=== PATIENT | female | born 1970 | race American Indian/Alaskan Native ===

== ENCOUNTER 2024-02-26 09:46 | Outpatient (AMB) | payer OTHER, SELFPAY ==
--- NOTE | 2024-02-26 09:47 | MHC.PC.OV ---
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/Herniated Disk/Arthritis Intake Note: New patient visit [place] Operator Required: No Allergies iron Allergy (Severe, Verified 02/26/24 09:55) difficutly breathing prednisolone Allergy (Severe, Verified 02/26/24 09:55) difficulty breathing iodine Allergy (Mild, Verified 02/26/24 09:55) Hives meperidine [Demerol] Allergy (Mild, Verified 02/26/24 09:55) Difficulty Breathing Cortisone Allergy (Severe, Uncoded 02/26/24 09:55) Hives prednisolone-propyl Allergy (Unknown, Uncoded 02/26/24 09:55) difficutly breathing Medication List - Last Reconciled 02/26/24 by Zuleyka Givens MD albuterol sulfate mg inhalation Q4H PRN albuterol sulfate 90 mcg/actuation 2 puffs inhalation Q6H PRN beclomethasone dipropionate 80 mcg/actuation (Qvar RediHaler) 1 inh inhalation BID buspirone 10 mg PO TID fluticasone propion-salmeterol 250-50 mcg/dose (Advair Diskus) 1 ea inhalation BID hydroxyzine HCl 50 mg PO BEDTIME ketotifen fumarate 0.025%(0.035%) 1 drp ophthalmic (eye) BID PRN levothyroxine 100 mcg PO DAILY loratadine 10 mg PO DAILY melatonin 10 mg PO BEDTIME PRN mirtazapine 30 mg PO BEDTIME montelukast 10 mg PO DAILY morphine ER 30 mg PO Q12H naloxone 4 mg/actuation 1 spray intranasal DAILY quetiapine 50 mg PO BEDTIME Tobacco use date assessed: 02/26/24 Dental Screening Dental Screen Date: 02/26/24 Did you have a dental visit in the last 12 months?: Yes Did you have a dental problem in the last 6 months where you did not have access to dental care?: No Was dental information given to patient?: Patient has dentist HPI HPI Comments History of Present Illness Details The patient is a 53 year old female with a past medical history of chronic back pain, neck pain, insomnia, asthma presenting to reestablish care Chronic pain: On morphine ER 30mg twice daily. MRI neck with cervical DDD-08/2023 diffuse disc desiccation, ostophytes, disc space narrowing. At C5-C6 ventral subarachnoid space effaced without cord compression. Has been seen previously at [facility]. Does not tolerate steroid injections (allergy). Had neurology referral but ?pending for consideration of botox injections. Neuropsych: Depression, insomnia. On mirtazapine, hydroxyzine, buspar, seroquel. Resp: Asthma. Allergy. Follows with Dr Chester. On albuterol prn, alternates breo/advair. On singulair, loratidine. Sinus congestion. Does not have nasal spray. Takes intermittently. 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 COUNTS INCLUDE 234 BEDS AT THE [facility] Social History Housing: House Patient Tobacco Use Status: Never used Tobacco e-Cigarette/Vaping Use: Never Used Second Hand Smoke Exposure: No service: No Current occupational status: disabled Cognitive needs: No Hearing needs: No Vision needs: No Questionnaire PHQ-9 Over the last 2 weeks, how often have you been bothered by any of the following problems? 1. Little interest or pleasure in doing things: nearly every day 2. Feeling down, depressed, or hopeless: nearly every day 3. Trouble falling or staying asleep, or sleeping too much: nearly every day 4. Feeling tired or having little energy: nearly every day 5. Poor appetite or overeating: nearly every day 6. Feeling bad about yourself - or that you are a failure or have let yourself or your family down: nearly every day 7. Trouble concentrating on things, such as reading the newspaper or watching television: nearly every day 8. Moving or speaking so slowly that other people could have noticed. Or the opposite - being so fidgety or restless that you have been moving around a lot more than usual: more than half the days 9. Thoughts that you would be better off or of hurting yourself in some way: several days Total score: 24 Depression Screening Interpretation: Positive Depression Screening Follow-up: Community Mental Health Worker F/U Depression Screening Done: Yes 65576 - PHQ-9 Billing: Yes Source: Developed by Drs. Atilio Owens, Shirley García, Jean Carlos Luz and colleagues, with an educational denise from [employer]. Thrive Questionnaire Date Thrive assessed: 02/26/24 I am a: Patient What is your living situation today?: I have a steady place to live Within the past 12 months, did the food you bought not last and you didn't have the money to get more?: Never true Within the past 12 months, did you worry whether your food would run out before you got money to buy more?: Never true Do you have trouble paying for medicines?: No Do you have trouble getting transportation to medical appointments?: Yes Do you have trouble paying your heating and electricity bill?: No Do you have trouble taking care of your child, family member or friend?: No Do you have trouble with day-to-day activities such as bathing, preparing meals, shopping, managing finances, etc.?: No Are you currently unemployed and looking for a job?: No Are you interested in more education?: No Please select the resources that you would like help with: None Currently or been in a relationship where the following occur: no concerns reported THRIVE Score: 1 AUDIT C Alcohol Use Questionnaire (AUDIT-C) 1. How often do you have a drink containing alcohol?: Never 3. How often do you have six or more drinks on one occasion?: Never Total Score: 0 VERONIQUE-7 AMB Questionnaire VERONIQUE-7 Date VERONIQUE - 7 assessed: 02/26/24 Feeling nervous, anxious, or on edge: 3 = Nearly every day Not being able to stop or control worryin = Nearly every day Worrying too much about different things: 3 = Nearly every day Trouble relaxin = Nearly every day Being so restless that it is hard to sit still: 2 = More than half the days Becoming easily annoyed or irritable: 3 = Nearly every day Feeling afraid as if something awful might happen: 3 = Nearly every day Total VERONIQUE-7 score (0-4 normal; 5-9 mild; 10-14 moderate; 15-21 severe): 20 Source: Developed by Drs. Atilio Owens, Shirley García, Jean Carlos Luz and colleagues, with an educational denise from [employer]. VERONIQUE-7 Assessment Billing VERONIQUE-7 Assessment Tool: VERONIQUE-7 Assessment 14698 ACT Questionnaire In the past 4 weeks, how much of the time did your asthma keep you from getting as much done at work, school or at home?: Most of the time During the past 4 weeks, how often have you had shortness of breath?: More than once a day During the past 4 weeks, how often did your asthma symptoms wake you up at night or earlier than usual in the morning?: 2-3 nights a week During the past 4 weeks, how often have you had to use your rescue inhaler or nebulizer medication?: 2-3 times a week How would you rate your asthma control during the past 4 weeks?: Somewhat controlled ACT Interpretation: Positive Score: 11 Review of Systems Const Details: ROS CONSTITUTIONAL: Denies weight loss, fever and chills. HEENT: see HPI RESPIRATORY: Denies SOB and cough. CV: Denies palpitations and CP GI: Denies abdominal pain, nausea, vomiting and diarrhea. : Denies dysuria and urinary frequency. MSK: Denies new myalgia and joint pain. SKIN: Denies rash and pruritus. NEUROLOGICAL: Denies headache PSYCHIATRIC: Denies recent changes in mood. Physical exam (Primary Care) Tobacco/Smoking Status: Tobacco use Status Tobacco use date assessed 02/26/24 02/26/24 10:10 Patient Tobacco Use Status Never used Tobacco 02/26/24 10:10 e-Cigarette/Vaping Use Never Used 02/26/24 10:10 Depression Screening Interpretation: Positive Depression Screening Follow-up: Community Mental Health Worker F/U Currently or been in a relationship where the following occur: no concerns reported Const Other: PHYSICAL EXAM: GENERAL: Alert and oriented x 3. NAD EYES: EOMI. Anicteric. HENT: Moist mucous membranes. maxillary sinuses ttp b/l LUNGS: Clear to auscultation bilaterally. CARDIOVASCULAR: Regular rate and rhythm. ABDOMEN: Soft, non-tender +bs EXTREMITIES: No edema. Non-tender. SKIN: No rashes or lesions. Warm. NEUROLOGIC: No focal neurological deficits. CN II-XII grossly intact PSYCHIATRIC: Cooperative. Appropriate mood and affect Assessment and Plan Assessment & Plan (1) Degenerative cervical disc: Comment: continue ER morphine. neurology referral. cannot tolerate injections. Code(s): M50.30 - Other cervical disc degeneration, unspecified cervical region (2) Chronic pain syndrome: Code(s): G89.4 - Chronic pain syndrome (3) Asthma: Comment: well controlled on current regimen. Sinusitis-azithromycin x 5 days. start nasal spray intermittently. continue follow up with Allergy Code(s): J45.909 - Unspecified asthma, uncomplicated Qualifiers: Asthma complication type: uncomplicated Asthma persistence: persistent Asthma severity: moderate Qualified Code(s): J45.40 - Moderate persistent asthma, uncomplicated (4) Hypothyroid: Comment: due for TSH. Code(s): E03.9 - Hypothyroidism, unspecified Qualifiers: Hypothyroidism type: unspecified Qualified Code(s): E03.9 - Hypothyroidism, unspecified (5) Insomnia: Comment: stable on current medications. Follows with psych Code(s): G47.00 - Insomnia, unspecified Qualifiers: Insomnia type: primary Qualified Code(s): F51.01 - Primary insomnia (6) Cervicogenic headache: Code(s): G44.86 - Cervicogenic headache Plan Mammo ordered Cologuard ordered Referred to director franchise sales-has failed to self refer Orders: Orders MM screening mammo BI Today Z12.31 - Encounter for screening mammogram for malignant neoplasm of breast TSH reflex Free T4 Today E03.9 - Hypothyroidism, unspecified Referrals Neurology Referral G44.86 - Cervicogenic headache EDM OPERATOR Referral Z01.419 - Encounter for gynecological examination (general) (routine) without abnormal findings Cologuard Test Z12.11 - Encounter for screening for malignant neoplasm of colon, Z12.12 - Encounter for screening for malignant neoplasm of rectum Medications: New fluticasone propionate 50 mcg/actuation administer into each nostril 2 sprays intranasal DAILY 16 grams 3RF morphine ER 30 mg PO Q12H 60 tabs 0RF azithromycin 500 mg PO DAILY 5 days 5 tabs 0RF fluconazole 150 mg PO Q3D 2 tabs 0RF Coding Level of Care Code Est Pt Level 5 (78963) Complex EM visit Add On G2211 Diagnoses Degenerative cervical disc M50.30 Chronic pain syndrome G89.4 Moderate persistent asthma without complication J45.40 Asthma complication type: uncomplicated Asthma persistence: persistent Asthma severity: moderate Hypothyroidism, unspecified type E03.9 Hypothyroidism type: unspecified Primary insomnia F51.01 Insomnia type: primary Cervicogenic headache G44.86 Additional Codes VERONIQUE-7 Assessment Billing - VERONIQUE-7 Assessment Tool: VERONIQUE-7 Assessment [id number] ([id number]) Time Spent (min) 53
== END 2024-02-26 10:46 | disposition home or self-care (01) ==
PROVIDERS: PCP Internal Medicine; Visit Provider Internal Medicine
DX: M50.30 Other cervical disc degeneration, unspecified cervical region (principal); G89.4 Chronic pain syndrome; J45.40 Moderate persistent asthma, uncomplicated; E03.9 Hypothyroidism, unspecified; F51.01 Primary insomnia; G44.86 Cervicogenic headache
CPT/HCPCS: 99215; G2211

== ENCOUNTER 2024-02-26 12:00 | Outpatient (REF) | payer OTHER, SELFPAY ==
[2024-02-26 17:17] LABS: TSH reflex Free T4 0.03 uIU/mL (0.32-4.0)
[2024-02-26 18:37] LABS: Free T4 (Free Thyroxine) 1.44 ng/dL (0.71-1.85)
== END 2024-02-26 12:01 | disposition home or self-care (01) ==
LOC: HO.WFDLDS 12:00
PROVIDERS: Visit Provider Internal Medicine
DX: E03.9 Hypothyroidism, unspecified (principal)
CPT/HCPCS: 36415; 84439; 84443

== ENCOUNTER 2024-03-26 13:44 | Outpatient (AMB) | payer OTHER, SELFPAY ==
--- NOTE | 2024-03-26 13:53 | MHC.OFFVIS ---
Vital Signs 03/26/24 14:01 BP 116/78 Blood Pressure Location Lt brachial Position Sitting Pulse 79 Pulse Source Pulse Oximeter Temp 97.8 F Temp Source Oral Pulse Oximetry (%) 95 Oxygen Delivery Method Room Air 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 Reasons: ball on top right hand Intake Note: patient states ball on top of right hand, states that it makes her hand feel tingly and painful. When she elevates her hand it feels numb. Applied Psychology Chair Required: No Accompanied by: Self / Same As Patient Allergies iron Allergy (Severe, Verified 02/26/24 09:55) difficutly breathing prednisolone Allergy (Severe, Verified 02/26/24 09:55) difficulty breathing iodine Allergy (Mild, Verified 02/26/24 09:55) Hives meperidine [Demerol] Allergy (Mild, Verified 02/26/24 09:55) Difficulty Breathing Cortisone Allergy (Severe, Uncoded 02/26/24 09:55) Hives prednisolone-propyl Allergy (Unknown, Uncoded 02/26/24 09:55) difficutly breathing HPI Comments Details: The patient is a 53 year old female with a past medical history of chronic back pain, neck pain, insomnia, asthma presenting for a lump on her hand She notes interval development of a painful cyst on the right wrist since she was last seen. Tender when she bumps it. No redness. Chronic pain: On morphine ER 30mg twice daily. MRI neck with cervical DDD-08/2023 diffuse disc desiccation, ostophytes, disc space narrowing. At C5-C6 ventral subarachnoid space effaced without cord compression. Has been seen previously at [facility]. Does not tolerate steroid injections (allergy). Had neurology referral but ?pending for consideration of botox injections. Neuropsych: Depression, insomnia. On mirtazapine, hydroxyzine, buspar, seroquel. Resp: Asthma. Allergy. Follows with Dr Chester. On albuterol prn, alternates breo/advair. On singulair, loratidine. Sinus congestion. Does not have nasal spray. Takes intermittently. 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 COUNTS INCLUDE 234 BEDS AT THE [facility] Social History (Updated 02/26/24 @ 10:48 by Siria Jean CMA) Housing: House Patient Tobacco Use Status: Never used Tobacco e-Cigarette/Vaping Use: Never Used Second Hand Smoke Exposure: No service: No Current occupational status: disabled Cognitive needs: No Hearing needs: No Vision needs: No Review of Systems Const Details: see HPI Physical Exam Vital Signs: Last Vital Signs Temp 97.8 F 03/26/24 14:01 Pulse 79 03/26/24 14:01 BP 116/78 03/26/24 14:01 Pulse Ox 95 03/26/24 14:01 Oxygen Delivery Method Room Air 03/26/24 14:01 Const Other: PHYSICAL EXAM: GENERAL: Alert and oriented x 3. NAD EYES: EOMI. Anicteric. HENT: Moist mucous membranes. LUNGS: Clear to auscultation bilaterally. CARDIOVASCULAR: Regular rate and rhythm. ABDOMEN: Soft, non-tender +bs EXTREMITIES: No edema. Non-tender. SKIN: Right dorsal wrist ganglion like cyst NEUROLOGIC: No focal neurological deficits. CN II-XII grossly intact PSYCHIATRIC: Cooperative. Appropriate mood and affect Assessment & Plan Assessment & Plan (1) Wrist pain: Code(s): M25.539 - Pain in unspecified wrist Category: Medical Qualifiers: Laterality: right Qualified Code(s): M25.531 - Pain in right wrist Plan: Referral to ortho hand placed (2) Ganglion cyst: Code(s): M67.40 - Ganglion, unspecified site Category: Medical Plan: referred Plan referred Orders: Referrals Orthopedics Referral M25.539 - Pain in unspecified wrist, M67.40 - Ganglion, unspecified site Coding Level of Care Code Est Pt Level 3 (23683) Diagnoses Right wrist pain M25.531 Laterality: right Ganglion cyst M67.40
[2024-03-26 14:01] VITALS: BP 116/78; PULSE 79; TEMP 36.6; O2SAT 95
== END 2024-03-26 14:34 | disposition home or self-care (01) ==
LOC: HO.HMGFM 13:44
PROVIDERS: PCP Internal Medicine; Visit Provider Internal Medicine
DX: M25.531 Pain in right wrist (principal); M67.40 Ganglion, unspecified site
CPT/HCPCS: 99213

== ENCOUNTER 2024-04-10 12:45 | Outpatient (REF) | payer OTHER, SELFPAY ==
--- NOTE | ~2024-04-10 | MM_ITS ---
EXAMINATION: MM SCREENING DIGITAL BREAST TOMOSYNTHESIS, BILATERAL CLINICAL INFORMATION: Screening. Asymptomatic. COMPARISON: Mammography: This study is compared with prior exams dating back to 2021. TECHNIQUE: Digital breast tomosynthesis is performed in both the craniocaudal and mediolateral oblique views along with computer-aided detection (CAD). Synthesized 2D images are generated from the tomosynthesis. FINDINGS: The breasts are heterogeneously dense, which may obscure small masses (ACR BI-RADS breast composition Category c). There are no significant masses, abnormal calcifications, or other abnormalities. MM/MM tomosynthesis screening BI IMPRESSION: No mammographic evidence of malignancy. ASSESSMENT: BI-RADS BI-RADS 1 - Negative RECOMMENDATION: Routine annual mammography screening. 1 year F/U This examination should not preclude the clinical evaluation of a suspicious palpable abnormality. This patient's information was entered into a reminder system with a target due date for their next mammogram.
== END 2024-04-10 12:46 | disposition home or self-care (01) ==
LOC: HO.MAMMO 12:45
PROVIDERS: PCP Internal Medicine; Visit Provider Internal Medicine
DX: Z12.31 Encounter for screening mammogram for malignant neoplasm of breast (principal)
CPT/HCPCS: 77063; 77067

== ENCOUNTER → 2024-04-10 12:45 | Outpatient (BNV) | payer OTHER, SELFPAY | PROVIDERS: PCP Internal Medicine; Visit Provider Radiology Diagnostic Radiology | DX: Z12.31 Encounter for screening mammogram for malignant neoplasm of breast (principal) | CPT/HCPCS: 77063; 77067 ==

== ENCOUNTER 2024-06-02 15:31 | Outpatient (AMB) | payer OTHER, SELFPAY ==
--- NOTE | 2024-06-02 15:33 | A.OFFPC_ITS ---
Vital Signs 06/02/24 15:38 BP 112/60 Blood Pressure Location Rt brachial Position Sitting Pulse 77 Pulse Source Pulse Oximeter Pulse Oximetry (%) 98 Oxygen Delivery Method Room Air 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 Reasons: medication monitoring, physical exam Intake Note: Patient is here for a physical exam and would like to discuss neurology referral as the neurology office states there is not enough information for them to see her. Patient reports itching left eye has been itching more than normal. Battery Tester Field Required: No Accompanied by: Self / Same As Patient Allergies iron Allergy (Severe, Verified 06/02/24 15:41) difficutly breathing prednisolone Allergy (Severe, Verified 06/02/24 15:41) difficulty breathing iodine Allergy (Mild, Verified 06/02/24 15:41) Hives meperidine [Demerol] Allergy (Mild, Verified 06/02/24 15:41) Difficulty Breathing Cortisone Allergy (Severe, Uncoded 06/02/24 15:41) Hives prednisolone-propyl Allergy (Unknown, Uncoded 06/02/24 15:41) difficutly breathing Tobacco use date assessed: 02/26/24 Dental Screening Dental Screen Date: 02/26/24 HPI HPI Comments History of Present Illness Details The patient is a 54 year old female with a past medical history of chronic back pain, neck pain, insomnia, asthma presenting for physical exam Chronic pain: On morphine ER 30mg twice daily. MRI neck with cervical DDD- 08/2023 diffuse disc desiccation, ostophytes, disc space narrowing. At C5-C6 ventral subarachnoid space effaced without cord compression. Has been seen previously at [facility]. Does not tolerate steroid injections (allergy). The patient has pain which originates in the posterior spine and radiates to the shoulder and up to the bilateral occiput and temporal areas. She has numbness/neuritis. Failed gabapentin and lyrica -due to intolerable side effects. Had neurology referral but ?pending for consideration of botox injections. Neuropsych: Depression, insomnia. On mirtazapine, hydroxyzine, buspar, seroquel. Resp: Asthma. Allergy. Follows with Dr Chester. On albuterol prn, alternates breo/advair. On singulair, loratidine. 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 HEENT: Denies changes in vision and hearing. RESPIRATORY: Denies SOB and cough. CV: Denies palpitations and CP GI: Denies abdominal pain, nausea, vomiting and diarrhea. : Denies dysuria and urinary frequency. MSK: Denies new myalgia and joint pain. SKIN: Denies rash and pruritus. NEUROLOGICAL: Denies headache PSYCHIATRIC: Denies recent changes in mood. PHYSICAL EXAM: GENERAL: Alert and oriented x 3. NAD EYES: EOMI. Anicteric. HENT: Moist mucous membranes. No scleral icterus. No cervical lymphadenopathy. LUNGS: Clear to auscultation bilaterally. CARDIOVASCULAR: Regular rate and rhythm. No murmur. No JVD. ABDOMEN: Soft, non-tender +bs EXTREMITIES: No edema. Non-tender. MSK: Antalgic gait SKIN: No rashes or lesions. Warm. NEUROLOGIC: No focal neurological deficits. CN II-XII grossly intact PSYCHIATRIC: Cooperative. Appropriate mood and affect [facility] Social History Housing: House Patient Tobacco Use Status: Never used Tobacco e-Cigarette/Vaping Use: Never Used Second Hand Smoke Exposure: No service: No Current occupational status: disabled Cognitive needs: No Hearing needs: No Vision needs: No Questionnaire Thrive Questionnaire Date Thrive assessed: 02/26/24 VERONIQUE-7 AMB Questionnaire VERONIQUE-7 Date VERONIQUE - 7 assessed: 02/26/24 Source: Developed by Drs. Atilio Owens, Shirley García, Jean Carlos Luz and colleagues, with an educational denise from [employer]. Physical exam (Primary Care) Vital Signs: Last Vital Signs Pulse 77 06/02/24 15:38 BP 112/60 06/02/24 15:38 Pulse Ox 98 06/02/24 15:38 Oxygen Delivery Method Room Air 06/02/24 15:38 Tobacco/Smoking Status: Tobacco use Status Tobacco use date assessed 02/26/24 06/02/24 15:35 Patient Tobacco Use Status Never used Tobacco 06/02/24 15:35 e-Cigarette/Vaping Use Never Used 06/02/24 15:35 Thrive Assessment: Date of Thrive Assessment Date Thrive assessed 02/26/24 06/02/24 15:35 Assessment and Plan Assessment & Plan (1) Physical exam: Code(s): Z00.00 - Encounter for general adult medical examination without abnormal findings Plan: Preventive measures for age discussed 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 UTD mammo. Has cologuard at home (2) Cervicogenic headache: Code(s): G44.86 - Cervicogenic headache Plan: Referral to neurology (3) Degenerative cervical disc: Comment: continue ER morphine. neurology referral. cannot tolerate injections. Code(s): M50.30 - Other cervical disc degeneration, unspecified cervical region Orders: Orders Complete Blood Count Auto Diff 6 Weeks E03.9 - Hypothyroidism, unspecified, F51.01 - Primary insomnia, R53.83 - Other fatigue, Z13.0 - Encounter for screening for diseases of the blood and blood-forming organs and certain disorders involving the immune mechanism, Z13.220 - Encounter for screening for lipoid disorders Comprehensive Met. Panel 6 Weeks E03.9 - Hypothyroidism, unspecified, F51.01 - Primary insomnia, R53.83 - Other fatigue, Z13.0 - Encounter for screening for diseases of the blood and blood-forming organs and certain disorders involving the immune mechanism, Z13.220 - Encounter for screening for lipoid disorders IRON PROFILE 6 Weeks E03.9 - Hypothyroidism, unspecified, F51.01 - Primary insomnia, R53.83 - Other fatigue, Z13.0 - Encounter for screening for diseases of the blood and blood-forming organs and certain disorders involving the immune mechanism, Z13.220 - Encounter for screening for lipoid disorders Lipid Panel 6 Weeks E03.9 - Hypothyroidism, unspecified, F51.01 - Primary insomnia, R53.83 - Other fatigue, Z13.0 - Encounter for screening for diseases of the blood and blood-forming organs and certain disorders involving the immune mechanism, Z13.220 - Encounter for screening for lipoid disorders Lyme IgG/IgM w/reflex to WB 6 Weeks E03.9 - Hypothyroidism, unspecified, F51.01 - Primary insomnia, R53.83 - Other fatigue, Z13.0 - Encounter for screening for diseases of the blood and blood-forming organs and certain disorders involving the immune mechanism, Z13.220 - Encounter for screening for lipoid disorders TSH reflex Free T4 6 Weeks E03.9 - Hypothyroidism, unspecified, F51.01 - Primary insomnia, R53.83 - Other fatigue, Z13.0 - Encounter for screening for diseases of the blood and blood-forming organs and certain disorders involving the immune mechanism, Z13.220 - Encounter for screening for lipoid disorders Vitamin B12 and Folate 6 Weeks E03.9 - Hypothyroidism, unspecified, F51.01 - Primary insomnia, R53.83 - Other fatigue, Z13.0 - Encounter for screening for diseases of the blood and blood-forming organs and certain disorders involving the immune mechanism, Z13.220 - Encounter for screening for lipoid disorders Referrals Neurology Referral G44.86 - Cervicogenic headache, M50.30 - Other cervical disc degeneration, unspecified cervical region Coding Level of Care Code Est Pt Prev Care 40-64y(40744) Diagnoses Physical exam Z00.00 Cervicogenic headache G44.86 Degenerative cervical disc M50.30
[2024-06-02 15:38] VITALS: BP 112/60; PULSE 77; O2SAT 98
== END 2024-06-02 16:28 | disposition home or self-care (01) ==
PROVIDERS: PCP Internal Medicine; Visit Provider Internal Medicine
DX: Z00.00 Encounter for general adult medical examination without abnormal findings (principal); G44.86 Cervicogenic headache; M50.30 Other cervical disc degeneration, unspecified cervical region
CPT/HCPCS: 99396

== ENCOUNTER 2024-07-24 12:13 | Outpatient (REF) | payer OTHER, SELFPAY ==
[2024-07-24 14:20] LABS: MANUAL DIFF FLAG NO
[2024-07-24 14:26] LABS: Basophils Absolute Auto 0.1 X10*3/uL (0.0-0.2); Basophils Percent Auto 0.8 % (0-2); Eosinophils Absolute Auto 0.2 X10*3/uL (0.0-0.4); Hematocrit 37.1 % (37.0-47.0); Hemoglobin 11.5 g/dl (12.0-16.0); Imm Gran Abs Auto 0.02 X10*3/uL (0.00-0.03); Imm Gran Pct Auto 0.3 % (0.0-0.4); Lymphocytes Absolute Auto 2.3 X10*3/uL (1.2-4.9); Lymphocytes Percent Auto 32.3 % (20-40); Mean Corpuscular Hemoglobin 24.7 pg (27.0-33.0); Mean Corpuscular Volume 79.8 fL (80.0-98.0); Monocytes Absolute Auto 0.5 X10*3/uL (0.1-1.2); Monocytes Percent Auto 6.8 % (2-11); Neutrophils Percent Auto 56.8 % (45-73); Platelet Count 294 X10*3/uL (160-400); Red Blood Count 4.65 X10*6/uL (4.20-5.50); Red Cell Distribution Width 14.9 % (11.0-16.0); White Blood Count 7.1 X10*3/uL (4.8-10.8)
[2024-07-24 14:49] LABS: Alanine Aminotransferase 18 U/L (0-31); Albumin Level 4.3 g/dL (3.5-5.0); Alkaline Phosphatase 149 U/L (39-117); Anion Gap 9 (12-20); Aspartate Amino Transferase 17 U/L (5-31); Bilirubin Total 0.4 mg/dL (0.0-1.0); Blood Urea Nitrogen 17 mg/dL (9-16); Calcium 10.8 mg/dL (8.4-10.2); Carbon Dioxide 28 mmol/L (22-29); Chloride 107 mmol/L (96-108); Cholesterol 190 mg/dL (<200); Estimated Glomerular Filt Rate > 60; Glucose Random 102 mg/dL (60-115); HDL Cholesterol 52 mg/dL (>40); Iron 34 mcg/dL (30-160); LDL Cholesterol Calculated 120 mg/dL (<100); Percent Iron Saturation 9 % (15-50); Potassium 4.1 mmol/L (3.3-5.1); Sodium 140 mmol/L (135-145); Total Iron Binding Capacity 399 mcg/dL (228-428); Total Protein 7.4 g/dL (6.5-8.0); Triglycerides 94 mg/dL (<150); Unsaturated Iron Binding 365 ug/dL
[2024-07-24 14:57] LABS: TSH reflex Free T4 0.47 uIU/mL (0.32-4.0)
[2024-07-24 15:16] LABS: Folate 8.1 ng/mL (> or = 4.0); Vitamin B12 386 pg/mL (200-900)
[2024-07-27 19:23] LABS: Lyme Abs Screen <0.90 index
== END 2024-07-24 12:14 | disposition home or self-care (01) ==
LOC: HO.WFDLDS 12:13
PROVIDERS: Visit Provider Internal Medicine
DX: E03.9 Hypothyroidism, unspecified (principal); F51.01 Primary insomnia; R53.83 Other fatigue; Z13.220 Encounter for screening for lipoid disorders; Z13.0 Encounter for screening for diseases of the blood and blood-forming organs and certain disorders involving the immune mechanism
CPT/HCPCS: 36415; 80053; 80061; 82607; 82746; 83540; 84443; 85025; 86617; 86618

== ENCOUNTER 2024-10-06 13:31 | Outpatient (REF) | payer OTHER, SELFPAY | END 2024-10-06 13:32 | disposition home or self-care (01) | LOC: HO.MRI 13:31 | PROVIDERS: PCP Internal Medicine; Visit Provider Internal Medicine | DX: M54.16 Radiculopathy, lumbar region (principal) | CPT/HCPCS: 72148 ==

== ENCOUNTER 2024-10-12 14:37 | Outpatient (AMB) | payer OTHER, SELFPAY ==
--- NOTE | 2024-10-12 14:38 | A.OFFPC_ITS ---
Vital Signs 10/12/24 14:41 Height 4 ft 10 in Weight 147 lb 6 oz BMI 30.8 BP 120/68 Blood Pressure Location Lt brachial Position Sitting Pulse 88 Pulse Source Pulse Oximeter Pulse Oximetry (%) 97 Oxygen Delivery Method Room Air 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 Reasons: Neck pain Allergies iron Allergy (Severe, Verified 10/12/24 14:39) difficutly breathing prednisolone Allergy (Severe, Verified 10/12/24 14:39) difficulty breathing iodine Allergy (Mild, Verified 10/12/24 14:39) Hives meperidine [Demerol] Allergy (Mild, Verified 10/12/24 14:39) Difficulty Breathing Cortisone Allergy (Severe, Uncoded 10/12/24 14:39) Hives prednisolone-propyl Allergy (Unknown, Uncoded 10/12/24 14:39) difficutly breathing Tobacco use date assessed: 02/26/24 Dental Screening Dental Screen Date: 10/12/24 Did you have a dental visit in the last 12 months?: Yes Did you have a dental problem in the last 6 months where you did not have access to dental care?: No Was dental information given to patient?: Patient has dentist HPI HPI Comments History of Present Illness Details The patient is a 54 year old female with a past medical history of chronic back pain, neck pain, insomnia, asthma presenting for neck pain Chronic pain: On morphine ER 30mg twice daily. MRI neck with cervical DDD- 08/2023 diffuse disc desiccation, ostophytes, disc space narrowing. At C5-C6 ventral subarachnoid space effaced without cord compression. Has been seen previously at [facility]. Does not tolerate steroid injections (allergy). The patient has pain which originates in the posterior spine and radiates to the shoulder and up to the bilateral occiput and temporal areas. She has numbness/neuritis. Failed gabapentin and lyrica -due to intolerable side effects. Wanted to see neurology forconsideration of botox injections but werent accepting. Has been having urinary incontinence, very infrequently fecal incontinence. Recently had lumbar MRI. Has not resulted yet. Denies dysuria. Neuropsych: Depression, insomnia. On mirtazapine, hydroxyzine, buspar, seroquel. Resp: Asthma. Allergy. Follows with Dr Chester. On albuterol prn, alternates breo/advair. On singulair, loratidine. 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 NAD EYES: EOMI. Anicteric. HENT: Moist mucous membranes. No scleral icterus. No cervical lymphadenopathy. LUNGS: Clear to auscultation bilaterally. CARDIOVASCULAR: Regular rate and rhythm. No murmur. No JVD. ABDOMEN: Soft, non-tender +bs EXTREMITIES: No edema. Non-tender. MSK: Antalgic gait SKIN: No rashes or lesions. Warm. NEUROLOGIC: No focal neurological deficits. CN II-XII grossly intact PSYCHIATRIC: Cooperative. Appropriate mood and affect [facility] Social History Housing: [place] Patient Tobacco Use Status: Never used Tobacco e-Cigarette/Vaping Use: Never Used Second Hand Smoke Exposure: No service: No Current occupational status: disabled Cognitive needs: No Hearing needs: No Vision needs: No Questionnaire PHQ-9 Over the last 2 weeks, how often have you been bothered by any of the following problems? 1. Little interest or pleasure in doing things: nearly every day 2. Feeling down, depressed, or hopeless: nearly every day 3. Trouble falling or staying asleep, or sleeping too much: nearly every day 4. Feeling tired or having little energy: nearly every day 5. Poor appetite or overeating: nearly every day 6. Feeling bad about yourself - or that you are a failure or have let yourself or your family down: nearly every day 7. Trouble concentrating on things, such as reading the newspaper or watching television: nearly every day 8. Moving or speaking so slowly that other people could have noticed. Or the opposite - being so fidgety or restless that you have been moving around a lot more than usual: nearly every day 9. Thoughts that you would be better off or of hurting yourself in some way: several days Total score: 25 Depression Screening Interpretation: Positive Depression Screening Done: Yes 03892 - PHQ-9 Billing: Yes Source: Developed by Drs. Atilio Owens, Shirley García, Jean Carlos Luz and colleagues, with an educational denise from [facility]. Thrive Questionnaire Date Thrive assessed: 02/26/24 I am a: Patient What is your living situation today?: I choose not to answer this question Within the past 12 months, did the food you bought not last and you didn't have the money to get more?: I choose not to answer this question Within the past 12 months, did you worry whether your food would run out before you got money to buy more?: I choose not to answer this question Do you have trouble paying for medicines?: I choose not to answer this question Do you have trouble getting transportation to medical appointments?: I choose not to answer this question Do you have trouble paying your heating and electricity bill?: I choose not to answer this question Do you have trouble taking care of your child, family member or friend?: I choose not to answer this question Do you have trouble with day-to-day activities such as bathing, preparing meals, shopping, managing finances, etc.?: I choose not to answer this question Are you currently unemployed and looking for a job?: I choose not to answer this question Are you interested in more education?: I choose not to answer this question Please select the resources that you would like help with: None Currently or been in a relationship where the following occur: I choose not to answer THRIVE Score: 0 AUDIT C Alcohol Use Questionnaire (AUDIT-C) 1. How often do you have a drink containing alcohol?: Never 3. How often do you have six or more drinks on one occasion?: Never Total Score: 0 VERONIQUE-7 AMB Questionnaire VERONIQUE-7 Date VERONIQUE - 7 assessed: 02/26/24 Feeling nervous, anxious, or on edge: 3 = Nearly every day Not being able to stop or control worryin = Nearly every day Worrying too much about different things: 3 = Nearly every day Trouble relaxin = Nearly every day Being so restless that it is hard to sit still: 2 = More than half the days Becoming easily annoyed or irritable: 3 = Nearly every day Feeling afraid as if something awful might happen: 3 = Nearly every day Total VERONIQUE-7 score (0-4 normal; 5-9 mild; 10-14 moderate; 15-21 severe): 20 Source: Developed by Drs. Atilio Owens, Shirley B.W. Jean Carlos García and colleagues, with an educational denise from [facility]. Physical exam (Primary Care) Vital Signs: Last Vital Signs Pulse 88 10/12/24 14:41 BP 120/68 10/12/24 14:41 Pulse Ox 97 10/12/24 14:41 Oxygen Delivery Method Room Air 10/12/24 14:41 BMI result Body Mass Index 30.8 Tobacco/Smoking Status: Tobacco use Status Tobacco use date assessed 02/26/24 10/12/24 14:47 Patient Tobacco Use Status Never used Tobacco 10/12/24 14:47 e-Cigarette/Vaping Use Never Used 10/12/24 14:47 PHQ-9: PHQ-9 Score PHQ-9: Total score 25 10/18/24 14:18 Depression Screening Interpretation: Positive Thrive Assessment: Date of Thrive Assessment Date Thrive assessed 02/26/24 10/12/24 14:47 Currently or been in a relationship where the following occur: I choose not to answer Coding Level of Care Code Est Pt Level 4 (72505) Diagnoses Osteoarthritis of spine with radiculopathy, 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 Spinal osteoarthritis complication: with radiculopathy Lumbar back pain with radiculopathy affecting lower extremity M54.16 Additional Codes PHQ-9 - 16650 - PHQ-9 Billing: Yes ([id number]) Assessment & Plan Assessment & Plan (1) Cervical spine degeneration: Code(s): M47.812 - Spondylosis without myelopathy or radiculopathy, cervical region Category: Medical Qualifiers: Spinal osteoarthritis complication: with radiculopathy Qualified C ode(s): M47.22 - Other spondylosis with radiculopathy, cervical region Plan: refer pain management (2) Lumbar back pain with radiculopathy affecting lower extremity: Code(s): M54.16 - Radiculopathy, lumbar region Category: Medical Plan: stable on current medications. referral placed to pain management Orders: Referrals Pain Management Referral M47.812 - Spondylosis without myelopathy or radiculopathy, cervical region, M54.16 - Radiculopathy, lumbar region Medications: New cyclobenzaprine 10 mg PO BEDTIME PRN 90 tabs 3RF muscle spasm
[2024-10-12 14:41] VITALS: BP 120/68; PULSE 88; O2SAT 97; BMI 30.8
== END 2024-10-12 15:30 | disposition home or self-care (01) ==
PROVIDERS: PCP Internal Medicine; Visit Provider Internal Medicine
DX: M47.22 Other spondylosis with radiculopathy, cervical region (principal)

== ENCOUNTER → 2024-10-12 14:37 | Outpatient (BNVA) | payer OTHER, SELFPAY | PROVIDERS: PCP Internal Medicine; Visit Provider Internal Medicine | DX: M47.22 Other spondylosis with radiculopathy, cervical region (principal); Z79.891 Long term (current) use of opiate analgesic | CPT/HCPCS: 96127; 99212 ==

== ENCOUNTER 2024-11-09 14:51 | Outpatient (AMB) | payer OTHER, SELFPAY ==
--- NOTE | 2024-11-09 15:18 | A.OFFPC_ITS ---
Vital Signs 11/09/24 15:21 Height 4 ft 10 in Weight 145 lb 8 oz BMI 30.4 BP 102/56 L Blood Pressure Location Rt brachial Position Sitting Pulse 83 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 Reasons: Follow up Intake Note: Follow up Rotary Operator Required: No Allergies iron Allergy (Severe, Verified 11/09/24 15:18) difficutly breathing prednisolone Allergy (Severe, Verified 11/09/24 15:18) difficulty breathing iodine Allergy (Mild, Verified 11/09/24 15:18) Hives meperidine [Demerol] Allergy (Mild, Verified 11/09/24 15:18) Difficulty Breathing Cortisone Allergy (Severe, Uncoded 11/09/24 15:18) Hives prednisolone-propyl Allergy (Unknown, Uncoded 11/09/24 15:18) difficutly breathing Tobacco use date assessed: 11/09/24 Dental Screening Dental Screen Date: 10/12/24 HPI HPI Comments History of Present Illness Details The patient is a 54 year old female with a past medical history of chronic back pain, neck pain, insomnia, asthma presenting for neck pain Chronic pain: On morphine ER 30mg twice daily. MRI neck with cervical DDD- 08/2023 diffuse disc desiccation, ostophytes, disc space narrowing. At C5-C6 ventral subarachnoid space effaced without cord compression. Has been seen previously at [facility]. Does not tolerate steroid injections (allergy). The patient has pain which originates in the posterior spine and radiates to the shoulder and up to the bilateral occiput and temporal areas. She has numbness/neuritis. Failed gabapentin and lyrica -due to intolerable side effects. Wanted to see neurology forconsideration of botox injections but werent accepting. Has been having urinary incontinence, very infrequently fecal incontinence. Recently had lumbar MRI. Has not resulted yet. Denies dysuria. Neuropsych: Depression, insomnia. On mirtazapine, hydroxyzine, buspar, seroquel. Resp: Asthma. Allergy. Follows with Dr Chester. On albuterol prn, alternates breo/advair. On singulair, loratidine. 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 NAD EYES: EOMI. Anicteric. HENT: Moist mucous membranes. No scleral icterus. No cervical lymphadenopathy. LUNGS: Clear to auscultation bilaterally. CARDIOVASCULAR: Regular rate and rhythm. No murmur. No JVD. ABDOMEN: Soft, non-tender +bs EXTREMITIES: No edema. Non-tender. MSK: Antalgic gait SKIN: No rashes or lesions. Warm. NEUROLOGIC: No focal neurological deficits. CN II-XII grossly intact PSYCHIATRIC: Cooperative. Appropriate mood and affect [facility] Surgical History H/O tooth extraction Social History Housing: House Patient Tobacco Use Status: Never used Tobacco e-Cigarette/Vaping Use: Never Used Second Hand Smoke Exposure: No service: No Current occupational status: disabled Cognitive needs: No Hearing needs: No Vision needs: No Questionnaire PHQ-9 Over the last 2 weeks, how often have you been bothered by any of the following problems? 1. Little interest or pleasure in doing things: nearly every day 2. Feeling down, depressed, or hopeless: nearly every day 3. Trouble falling or staying asleep, or sleeping too much: nearly every day 4. Feeling tired or having little energy: nearly every day 5. Poor appetite or overeating: nearly every day 6. Feeling bad about yourself - or that you are a failure or have let yourself or your family down: not at all 7. Trouble concentrating on things, such as reading the newspaper or watching television: nearly every day 8. Moving or speaking so slowly that other people could have noticed. Or the op posite - being so fidgety or restless that you have been moving around a lot more than usual: not at all 9. Thoughts that you would be better off or of hurting yourself in some way: not at all Total score: 18 Depression Screening Interpretation: Positive Depression Screening Done: Yes 41483 - PHQ-9 Billing: Yes Source: Developed by Drs. Atilio Owens, Shirley García, Jean Carlos Luz and colleagues, with an educational denise from [email or web address]. Thrive Questionnaire Date Thrive assessed: 10/12/24 I am a: Patient What is your living situation today?: I have a steady place to live Within the past 12 months, did the food you bought not last and you didn't have the money to get more?: Sometimes True Within the past 12 months, did you worry whether your food would run out before you got money to buy more?: I choose not to answer this question Do you have trouble paying for medicines?: I choose not to answer this question Do you have trouble getting transportation to medical appointments?: I choose not to answer this question Do you have trouble paying your heating and electricity bill?: I choose not to answer this question Do you have trouble taking care of your child, family member or friend?: I choose not to answer this question Do you have trouble with day-to-day activities such as bathing, preparing meals, shopping, managing finances, etc.?: I choose not to answer this question Are you currently unemployed and looking for a job?: I choose not to answer this question Are you interested in more education?: I choose not to answer this question Please select the resources that you would like help with: None Currently or been in a relationship where the following occur: I choose not to answer THRIVE Score: 1 AUDIT C Alcohol Use Questionnaire (AUDIT-C) 1. How often do you have a drink containing alcohol?: Never Total Score: 0 VERONIQUE-7 AMB Questionnaire VERONIQUE-7 Date VERONIQUE - 7 assessed: 11/09/24 Feeling nervous, anxious, or on edge: 3 = Nearly every day Not being able to stop or control worryin = Nearly every day Worrying too much about different things: 3 = Nearly every day Trouble relaxin = Nearly every day Being so restless that it is hard to sit still: 3 = Nearly every day Becoming easily annoyed or irritable: 3 = Nearly every day Feeling afraid as if something awful might happen: 3 = Nearly every day Total VERONIQUE-7 score (0-4 normal; 5-9 mild; 10-14 moderate; 15-21 severe): 21 Source: Developed by Drs. Atilio Owens, Shirley García, Jean Carlos Luz and colleagues, with an educational denise from [email or web address]. VERONIQUE-7 Assessment Billing VERONIQUE-7 Assessment Tool: VERONIQUE-7 Assessment 90801 Physical exam (Primary Care) Vital Signs: Last Vital Signs Pulse 834 H 11/09/24 15:21 BP 102/56 L 11/09/24 15:21 BMI result Body Mass Index 30.4 Tobacco/Smoking Status: Tobacco use Status Tobacco use date assessed 11/09/24 11/09/24 15:21 Patient Tobacco Use Status Never used Tobacco 11/09/24 15:21 e-Cigarette/Vaping Use Never Used 11/09/24 15:21 PHQ-9: PHQ-9 Score PHQ-9: Total score 18 11/09/24 15:32 Depression Screening Interpretation: Positive Thrive Assessment: Date of Thrive Assessment Date Thrive assessed 10/12/24 11/09/24 15:21 Currently or been in a relationship where the following occur: I choose not to answer Coding Level of Care Code Est Pt Level 3 (83547) Diagnoses Osteoarthritis of spine with radiculopathy, 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 Spinal osteoarthritis complication: with radiculopathy Primary insomnia F51.01 Insomnia type: primary Additional Codes VERONIQUE-7 Assessment Billing - VERONIQUE-7 Assessment Tool: VERONIQUE-7 Assessment 47787 ([id number]) PHQ-9 - 78014 - PHQ-9 Billing: Yes ([id number]) Assessment & Plan Assessment & Plan (1) Cervical spine degeneration: Code(s): M47.812 - Spondylosis without myelopathy or radiculopathy, cervical region Category: Medical Qualifiers: Spinal osteoarthritis complication: with radiculopathy Qualified Code(s): M47.22 - Other spondylosis with radiculopathy, cervical region Plan: Fairly stable on current medication regimen. CSC has been signed (2) Insomnia: Comment: stable on current medications. Follows with psych Code(s): G47.00 - Insomnia, unspecified Category: Medical Qualifiers: Insomnia type: primary Qualified Code(s): F51.01 - Primary insomnia Plan: stable on medications Medications: New clonidine HCl 0.1 mg PO BEDTIME 90 tabs 3RF fluticasone propion-salmeterol 250-50 mcg/dose (Advair Diskus) 1 ea inhalation BID 60 ea 3RF montelukast 10 mg PO DAILY 90 tabs 3RF
[2024-11-09 15:21] VITALS: BP 102/56; PULSE 83; BMI 30.4
== END 2024-11-09 15:49 | disposition home or self-care (01) ==
PROVIDERS: PCP Internal Medicine; Visit Provider Internal Medicine
DX: M47.22 Other spondylosis with radiculopathy, cervical region (principal); F51.01 Primary insomnia

== ENCOUNTER → 2024-11-09 14:51 | Outpatient (BNVA) | payer OTHER, SELFPAY | PROVIDERS: PCP Internal Medicine; Visit Provider Internal Medicine | DX: M47.22 Other spondylosis with radiculopathy, cervical region (principal); F51.01 Primary insomnia | CPT/HCPCS: 96127; 99212 ==

== ENCOUNTER 2024-11-13 14:17 | Outpatient (AMB) | payer OTHER, SELFPAY ==
[2024-11-13 14:21] VITALS: BP 122/57; PULSE 79; RESP 17; O2SAT 98; BMI 28.8
--- NOTE | 2024-11-13 14:21 | MHC.OFFVIS ---
Vital Signs 11/13/24 14:21 Height 4 ft 10 in Weight 138 lb BMI 28.8 BP 122/57 L Blood Pressure Location Lt brachial Position Sitting Respiration 17 Pulse 79 Pulse Source Pulse Oximeter Pulse Oximetry (%) 98 Oxygen Delivery Method Room Air 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 Reasons: Lumbar Radiculopathy Allergies iron Allergy (Severe, Verified 11/13/24 14:22) difficutly breathing prednisolone Allergy (Severe, Verified 11/13/24 14:22) difficulty breathing iodine Allergy (Mild, Verified 11/13/24 14:22) Hives meperidine [Demerol] Allergy (Mild, Verified 11/13/24 14:22) Difficulty Breathing Cortisone Allergy (Severe, Uncoded 11/13/24 14:22) Hives prednisolone-propyl Allergy (Unknown, Uncoded 11/13/24 14:22) difficutly breathing Medication List - Last Reconciled 11/13/24 by Adriana Barboza, EXPRESSIVE ART THERAPIST albuterol sulfate mg inhalation Q4H PRN albuterol sulfate 90 mcg/actuation 2 puffs inhalation Q6H PRN beclomethasone dipropionate 80 mcg/actuation (Qvar RediHaler) 1 inh inhalation BID clonidine HCl 0.1 mg PO BEDTIME cyclobenzaprine 10 mg PO BEDTIME PRN fluticasone propion-salmeterol 250-50 mcg/dose (Advair Diskus) 1 ea inhalation BID hydroxyzine HCl 50 mg PO BEDTIME ketotifen fumarate 0.025%(0.035%) 1 drp ophthalmic (eye) BID PRN levothyroxine 88 mcg PO DAILY loratadine 10 mg PO DAILY melatonin 10 mg PO BEDTIME PRN mirtazapine 30 mg PO BEDTIME montelukast 10 mg PO DAILY morphine ER 30 mg PO Q12H naloxone 4 mg/actuation 1 spray intranasal DAILY quetiapine 50 mg PO BEDTIME HPI Comments Details: Meredith is a very pleasant 54-year-old female who presents to the office today for evaluation and management of her chronic neck pain. She has been suffering with this pain for greater than 10 years. Denies inciting injury, fall, trauma. Referred here for lower back pain though patient requested focus on her neck pain as this is the most significant. Endorses midline cervical neck pain with radiation across the top of both shoulders. Denies radiation of the pain down either lower extremities. Denies numbness, tingling, weakness of either upper extremity. States this will also cause her to have cervicogenic headaches Denies recent imaging Denies recent attempts at physical therapy Currently using TENs unit with no relief. Minimal relief with massage. Taking [id number] Tylenol and ibuprofen minimal relief. She has taking gabapentin and Lyrica but had side effects therefore it was discontinued Currently taking muscle relaxers and is on a chronic opioid contract but pain persists Pain today is rated as a 9/10, constant. Exacerbated by movement, palpation and cold weather. In terms of muscle damage condition is described as hot, burning, pinching, cramping, crushing, tingling, aching, throbbing Pain is negatively impacting patient's sleep, ability to perform activities of daily living, ability to care for herself, ability to function normally. She currently has [employer]PER[employer] to assist at home. Denies current use of anticoagulants Denies implantable devices, pacemaker or defibrillator Denies current use of nicotine, tobacco, alcohol or illicit substances [facility] Surgical History H/O tooth extraction Social History Housing: House Patient Tobacco Use Status: Never used Tobacco e-Cigarette/Vaping Use: Never Used Second Hand Smoke Exposure: No service: No Current occupational status: disabled Cognitive needs: No Hearing needs: No Vision needs: No Review of Systems Const All systems reviewed & are unremarkable except as noted in HPI and below Physical Exam Vital Signs: Last Vital Signs Pulse 79 11/13/24 14:21 Resp 17 11/13/24 14:21 BP 122/57 L 11/13/24 14:21 Pulse Ox 98 11/13/24 14:21 Oxygen Delivery Method Room Air 11/13/24 14:21 BMI result Body Mass Index 28.8 General: awake, alert, oriented. Answers questions appropriately. Fully engaged in examination. Skin: warm, dry, intact HEENT: Normocephalic. Hearing intact. Cardiac: External chest normal in appearance. Respiratory: No cough, audible wheezing or stridor. Abdomen: without gross distension. MS: No obvious swelling or deformities. Able to transition from sit to stand unassisted. Cervical Spine: Visible inspection without gross abnormality Tender throughout bilateral upper trapezius muscles Tender to palpation midline cervical vertebrae and cervical paraspinal muscles decreased cervical ROM in all planes Spurling compression test positive BUE strength 5/5 Neurological: Oriented to person, place, time and situation. Thought process intact. No gait abnormalities appreciated. Psychiatric: Appropriate mood and affect. Good judgment and insight. Assessment & Plan Assessment & Plan (1) Lumbar spondylosis: Code(s): M47.816 - Spondylosis without myelopathy or radiculopathy, lumbar region Category: Medical (2) Cervical spine degeneration: Code(s): M47.812 - Spondylosis without myelopathy or radiculopathy, cervical region Category: Medical Qualifiers: Spinal osteoarthritis complication: with radiculopathy Qualified Code(s): M47.22 - Other spondylosis with radiculopathy, cervical region (3) Degenerative cervical disc: Comment: continue ER morphine. neurology referral. cannot tolerate injections. Code(s): M50.30 - Other cervical disc degeneration, unspecified cervical region Category: Medical Plan Meredith is a very pleasant 54-year-old female who presented to the office today for evaluation and management of her chronic back pain X-rays ordered for evaluation PT ordered, eval and treat. Patient lives in [place], she requested location closer to her home. Continue with morphine and cyclobenzaprine as prescribed by PCP Continue with [id number] Tylenol and ibuprofen as needed If no improvement with PT will plan for diagnostic cervical medial branch blocks with local anesthetic. With positive results consider sprint PNS versus RFA. Patient has allergies to steroids therefore unable to have therapeutic injections. All questions and concerns were answered, patient agrees with the plan. Follow up after PT, sooner if needed Orders: Orders XR cervical spine w flex/ext Today M47.22 - Other spondylosis with radiculopathy, cervical region XR lumbar spine 4V min Today M47.816 - Spondylosis without myelopathy or radiculopathy, lumbar region PT Evaluation and Treatment Today M47.22 - Other spondylosis with radiculopathy, cervical region, M47.816 - Spondylosis without myelopathy or radiculopathy, lumbar region, M50.30 - Other cervical disc degeneration, unspecified cervical region, M54.2 - Cervicalgia Coding Level of Care Code New Pt Level 4 (27477) Complex EM visit Add On G2211 Diagnoses Lumbar spondylosis M47.816 Osteoarthritis of spine with radiculopathy, 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 Spinal osteoarthritis complication: with radiculopathy Degenerative cervical disc M50.30
== END 2024-11-13 14:50 | disposition home or self-care (01) ==
PROVIDERS: PCP Internal Medicine; Referring Provider Internal Medicine; Visit Provider Registered Nurse Emergency
DX: M47.816 Spondylosis without myelopathy or radiculopathy, lumbar region (principal); M47.22 Other spondylosis with radiculopathy, cervical region; M50.30 Other cervical disc degeneration, unspecified cervical region
CPT/HCPCS: 99204; G2211

== ENCOUNTER → 2024-11-13 14:17 | Outpatient (BNVA) | payer OTHER, SELFPAY | PROVIDERS: PCP Internal Medicine; Referring Provider Internal Medicine; Visit Provider Registered Nurse Emergency | DX: M47.816 Spondylosis without myelopathy or radiculopathy, lumbar region (principal); M47.22 Other spondylosis with radiculopathy, cervical region; M50.30 Other cervical disc degeneration, unspecified cervical region | CPT/HCPCS: 99202 ==

== ENCOUNTER 2025-01-07 12:32 | Outpatient (REF) | payer OTHER, SELFPAY ==
--- NOTE | ~2025-01-07 | XR_ITS ---
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 TECHNIQUE: 6 views of the cervical spine, inclusive of flexion and extension views, were obtained. FINDINGS: There is mild straightening of lumbar lordosis. The vertebral heights and alignment is normal. Loss of C5-6, C6 -C7 disc heights with ventral and posterior spondylosis noted. Moderate left C4-5 facet joint arthropathy and hypertrophy is noted. The prevertebral soft tissues are normal. XR/XR cervical spine w flex/ext IMPRESSION: Mild degenerative disc changes C6-7 and C5-6 disc levels. No visible acute fracture or dislocation seen Electronically signed by: Juan Jose Vences MD 01/11/2025 11:28 AM EDT
--- NOTE | ~2025-01-07 | XR_ITS ---
EXAMINATION: Lumbar spine 5 views. TECHNIQUE: Spondylosis without myelopathy or radiculopathy. COMPARISON: MRI lumbar spine 10/06/2024. FINDINGS: There is maintained lumbar lordosis. The vertebral heights, alignment and disc heights are normal. There is no visible acute fracture, dislocation or lytic process seen the SI joints are symmetrical and normal. No visible fracture or lytic process. The paravertebral soft tissues are normal. XR/XR lumbar spine 4V min IMPRESSION: Unremarkable lumbar spine exam Electronically signed by: Juan Jose Vences MD 01/11/2025 11:30 AM EDT
--- OUTSIDE RECORDS SUMMARY | 2025-01-07 15:06 | XMS_ITS | Encounter Summary ---
Author Organization [facility] Address [address] [place] [address] Care Team Providers Care Rodeo Clown Name Role Phone Darshana Leon MD Primary Care Provider Marj Arenas MD Primary Care Provider [phone] Krystal Dozier MD Primary [facility] Provider [facility], [facility]cp Primary Care Provider Unavailabl e Reason for Visit * Reason Onset Date Comments Prior Authorization 07/22/2020 Morphine Sul fate ER (MS CONTIN) 30 MG Tab CR Encounter Details Date Type Department Care Team Description 07/22/2020 Telephone Medicine/Pediatrics - [address] [phone] Darshana Leon MD Prior Authorization (Morphine Sulfate ER (MS CONTIN) 30 MG Tab CR) Social History Tobacco Use Types Packs/Day Years Used Date Smoking Tobacco: Never Smokeless Tobacco: Never Alcohol Use Standard Drinks/Week Comments No 0 (1 standard drink = 0.6 oz pur e alcohol) Sex Assigned at Date Recorded Not on file Job Start Date Occupation Industry Not on file Not on file Not on file documented as of this encounter Miscellaneous Notes * Telephone Encounter - Shyann Ford M.A. - 07/26/2020 7:51 AM EDT Prior authorization for the morphine sulfate 30 mg ER was approved Approved from, 07/25/2020 until 07/25/2021 Prior authorization approval number # [id number] Approval faxed to [facility] at [phone] * Telephone Encounter - Darby Ferraro M.A. - 07/25/2020 9:22 AM EDT Prior auth done for morphine sulfate er 30mg tab tid Had to fill out form with further information, done and faxed * Telephone Encounter - Darby Ferraro M.A. - 07/22/2020 2:30 PM EDT Prior auth done by form for quantity of the morphine sulfate er 30mg tab(ms contin) Dx chronic pain Continuation of therapy since 06/30/14 * Telephone Encounter - Sindy Mendoza - 07/22/2020 12:42 PM EDT Prior Authorization for Medication-do not complete and send this encounter unless you have the fax from the pharmacy. Is this a Cover My Meds request: [place] of Medication Morphine Sulfate ER (MS CONTIN) Dose of Medication 30 MG Tab CR What is the RX # from the faxed refill? How does patient take this med? Take 30 mg by mouth 3 times daily. - Oral What Pharmacy did the fax come from: [facility] Pharmacy fax #: [phone] [employer] Party Information from fax: What Prescription Plan does the patient have? Envision RX BIN/PCN if applicable: Cardholder ID: Person Code: Relationship Code: Help desk phone: [phone] *PRIOR AUTH FAXED TO [phone] documented in this encounter Plan of Treatment Not on file documented as of this encounter Visit Diagnoses Not on filedocumented in this encounter Care Teams Rodeo Clown Relationship Specialty Start Date End Date Darshana Leon MD PCP - General Internal Medicine 10/03/12 04/23/22 Marj oGnzales MD [facility] [place] [address] PCP - General Internal Medicine 04/24/22 09/02/22 Krystal Dozier MD [address] [place] [address] PCP - General Internal Medicine 09/03/22 09/12/23 Paulina Pandya [address] [place] [address] PCP - General Internal Medicine 09/13/23 [facility] 08/13/22 Malvin clifford Pulmonology 08/13/22 documented as of this encounter
--- OUTSIDE RECORDS SUMMARY | 2025-01-07 15:06 | XMS_ITS | Encounter Summary ---
Author Organization [facility] Address [address] [place] [address] Care Team Providers Care Bleach Liquor Maker Name Role Phone Darshana Leon MD Primary Care Provider Marj Arenas MD Primary Care Provider [phone] Krystal Dozier MD Primary Care Provider [phone] [facility], Pcp Primary Care Provider [facility] Encounter Details Date Type Department Care Team Description 06/08/2020 Telephone Medicine/Pediatrics - [address] [phone] Darshana Leon MD Social History Tobacco Use Types Packs/Day Years [...] encounter Miscellaneous Notes * Telephone Encounter - Radha Phillips - 06/08/2020 10:58 AM EDT Patient called back, advised of message below. Patient states she understands and will call back ifshe has any other questions. * Telephone Encounter - Fern Swain R.N. - 06/08/2020 8:34 AM EDT Left message to call [phone] * Telephone Encounter - Fern Swain R.N. - 06/08/2020 8:34 AM EDT ----- Message from Darshana Leon MD sent at 06/07/2020 10:54 PM EDT ----- Please notify pt that we need to increase her dose of thyroid medication. Her vit D is still a little low. Blood sugar is normal. She is also mildly anemic. Needs to take MVI w/ iron and increase iron in the diet. Rx sent to pharmacy for thyroid med and vit D. documented in this encounter Plan of Treatment Not on file documented as of this encounter Visit Diagnoses Not on filedocumented in this encounter Care Teams Bleach Liquor Maker Relationship Specialty Start Date End Date Darshana Leon MD PCP - General Internal Medicine 10/03/12 04/23/22 Marj Gonzales MD [address] [place] [address] PCP - General Internal Medicine 04/24/22 09/02/22 Krystal Dozier MD [address] [place] [address] [id number] PCP - General Internal Medicine 09/03/22 09/12/23 [facility], [address] [address] PCP - General Internal Medicine 09/13/23 [facility] 08/13/22 Malvin clifford Pulmonology 08/13/22 documented as of this encounter
--- OUTSIDE RECORDS SUMMARY | 2025-01-07 15:06 | XMS_ITS | Encounter Summary ---
Author Organization [facility] Address [address] [place] [address] Care Team Providers Care Public Safety Telecommunicator Name Role Phone Darshana Leon MD Primary Care Provider Marj Arenas MD Primary Care Provider Krystal Dozier MD Primary Care Provider [phone] [facility], Pcp Primary Care Provider Unavailabl e Encounter Details Date Type Department Care Team Description 07/24/2018 Orders Only Medicine/Pediatrics - [address] [phone] Phi Stevens PA-C Elevated lipase (Primary Dx) Social History Tobacco Use Types Packs/Day Years Used Date Smoking Tobacco: Never Smokeless Tobacco: Never Alcohol Use Standard Drinks/Week Comments No 0 (1 standard drink = 0.6 oz pur e alcohol) Sex Assigned at Date Recorded Not on file Job Start Date Occupation Industry Not on file Not on file Not on file documented as of this encounter Plan of Treatment Not on file documented as of this encounter Results * SONO ABDOMEN COMPLETE (09/22/2018 9:38 AM EST) 09/22/2018 9:49 AM EST Impressions [facility] - 09/22/2018 9:57 AM EST IMPRESSION: Borderline prominence of both the common bile duct and right renal pelvis. Further evaluation of either may be warranted if there are clinical indications. Otherwise unremarkable abdominal ultrasound. Narrative [facility] - 09/22/2018 9:57 AM EST History: Elevated lipase. Abdominal pain. The gallbladder is clear. There is no evidence of cholelithiasis or cholecystitis. There is no wall thickening. The common bile duct is obscured by bowel contents. The common hepatic duct is at the upper limit of normal measuring 7 mm. Further evaluation may be indicated if there is clinical evidence of biliary obstruction. The liver is normal in size, configuration and echogenicity. Portal venous flow is normal. The pancreas is sonographically normal as far as visualized. The tail is obscured by bowel contents. The spleen is sonographically normal. There is borderline distention of the right renal collecting system measuring up to 5 mm transverse diameter. This may simply represent physiologic diuresis. Further evaluation may be warranted if clinically indicated. Otherwise the kidneys are normal in size, configuration and echogenicity. There is no identifiable abnormality of the visualized IVC or abdominal aorta. There is no ascites. Procedure Note Kong Toledo MD - 09/22/2018 History: Elevated lipase. Abdominal pain. The gallbladder is clear. There is no evidence of cholelithiasis orcholecystitis. There is no wall thickening. The common bile duct is obscured by bowel contents. Thecommon hepatic duct is at the upper limit of normal measuring 7 mm. Further evaluation may beindicated if there is clinical evidence of biliary obstruction. The liver is normal in size,configuration and echogenicity. Portal venous flow is normal. The pancreas issonographically normal as far as visualized. The tail is obscured by bowel contents. The spleen issonographically normal. There is borderline distention of the right renal collecting systemmeasuring up to 5 mm transverse diameter. This may simply represent physiologic diuresis.Further evaluation may be warranted if clinically indicated. Otherwise the kidneys are normal insize, configuration and echogenicity. There is no identifiable abnormality of the visualized IVCor abdominal aorta. There is no ascites. IMPRESSION IMPRESSION: Borderline prominence of both the common bile duct and rightrenal pelvis. Further evaluation of either may be warranted if there are clinical indications.Otherwise unremarkable abdominal ultrasound. Phi Stevens PA-C ULTRASOUND [facility] documented in this encounter Visit Diagnoses Diagnosis Elevated lipase- Primary Other nonspecific abnormal serum enzyme levels Elevated lipase Other nonspecific abnormal serum enzyme levels documented in this encounter Care Teams Public Safety Telecommunicator Relationship Specialty Start Date End Date Darshana Leon MD PCP - General Internal Medicine 10/03/12 04/23/22 Marj Gonzales MD [address] [place] [address] PCP - General Internal Medicine 04/24/22 09/02/22 Krystal Dozier MD [address] [place] [address] PCP - General Internal Medicine 09/03/22 09/12/23 [facility], [address] [address] PCP - General Internal Medicine 09/13/23 [facility] 08/13/22 Malvin clifford Pulmonology 08/13/22 documented as of this encounter
--- OUTSIDE RECORDS SUMMARY | 2025-01-07 15:06 | XMS_ITS | Encounter Summary ---
Author Organization [facility] Address [address] [place] [address] Care Team Providers Care Client Account Representative Name Role Phone Darshana Leon MD Primary Care Provider Marj Arenas MD Primary Care Provider [phone] Krystal Dozier MD Primary Care Provider [phone] Counts Include [address] [facility], Pcp Primary Care Provider Unavailabl e Reason for Visit * Reason Onset Date Comments APPOINTMENT 08/01/2016 physiatry Encounter Details Date Type Department Care Team Description 08/01/2016 Telephone Medicine/Pediatrics - [address] [phone] Darshana Leon MD APPOINTMENT (physiatry ) Social History Tobacco Use Types Packs/Day Years [...] encounter Miscellaneous Notes * Telephone Encounter - Alea Vines L.P.N. - 08/01/2016 11:20 AM EDT Pt thought her apt was at 1030 in physiatry which she went to Her apt was at [address] she states she can not go back for this apt so she canc. She state she can not come back because her son has an apt today and it is to much for her to return * Telephone Encounter - Alcira Ruth - 08/01/2016 11:08 AM EDT Patient is having difficulty with her appointments in Physiatry Would like to speak with Dr. Leon She can be reached at number listed FYI a separate message is being sent to the Security Associate Tawanna García in [place] as well regarding the appointment scheduled today documented in this encounter Plan of Treatment Not on file documented as of this encounter Visit Diagnoses Not on filedocumented in this encounter Care Teams Client Account Representative Relationship Specialty Start Date End Date Darshana Leon MD PCP - General Internal Medicine 10/03/12 04/23/22 Marj Gonzales MD [address] [place] [address] PCP - General Internal Medicine 04/24/22 09/02/22 Krystal Dozier MD [address] [place] [address] PCP - General Internal Medicine 09/03/22 09/12/23 Paulina Pandya [address] [place] [address] PCP - General Internal Medicine 09/13/23 [facility] 08/13/22 Malvin clifford Pulmonology 08/13/22 documented as of this encounter
--- OUTSIDE RECORDS SUMMARY | 2025-01-07 15:06 | XMS_ITS | Encounter Summary ---
Author Organization [facility] Address [address] [place] [address] Care Team Providers Care Litigation Legal Secretary Name Role Phone Darshana Leon MD Primary Care Provider Marj Arenas MD Primary Care Provider [phone] Krystal Dozier MD Primary Care Provider [phone] [facility], Pcp Primary Care Provider Unavailabl e Reason for Visit * Reason Onset Date Comments Prior Authorization 03/26/2018 OMEPRAZOLE Encounter Details Date Type Department Care Team Description 03/26/2018 Telephone Medicine/Pediatrics - [address] [phone] Darshana Leon MD Prior Authorization (OMEPRAZOLE) Social History Tobacco Use Types Packs/Day Years [...] Telephone Encounter - Shyann Ford M.A. - 04/15/2018 11:35 AM EDT Spoke with Rossy from [employer] who stated this was approved. She ran a test claim out as far asJuly and states it goes through with no problem * Telephone Encounter - Radha Perry M.A. - 04/10/2018 9:45 AM EDT Dx code:GERD K21.9 Refractory gerd despite once a day dosing Other pertinent information:prior authorization completed on paper request Faxed to [facility] * Telephone Encounter - Darshana Leon MD - 04/07/2018 4:51 PM EDT Dosing changed. * Telephone Encounter - Radha Perry M.A. - 04/03/2018 3:01 PM EDT I think leaving 20mg twice per day we can use refractory GERD despite twice a day dosing. Twice perday we have a better change of getting approved 40mg will not get approved 2014 GI note * Telephone Encounter - Darshana Leon MD - 04/03/2018 1:22 PM EDT Chart reviewed. Prescription written by Lakesha but I can't find any documentation regarding the dosing. I don't see anything on the chart to justify twice daily dosing and it doesn't appear that she takes this regularly regardless. I think that 40 mg once daily is fine. New prescription sent. * Telephone Encounter - Darby Ferraro M.A. 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 [facility] Prior Authorizations Ext [id number] * Telephone Encounter - Theresa Onofre - 03/26/2018 10:23 AM EDT Pre Authorization for Medication-do not complete and send this encounter unless you have the fax from the pharmacy. Is this a Cover My Meds request: [place] of Medication OMEPRAZOLE Dose of Medication 20 MG How does patient take this med? What Pharmacy did the fax come from: [facility] Pharmacy fax #: [phone] [employer] Information from fax: What Prescription Plan does the patient have? Payor: [email or web address] FFS / Plan: [employer] /Product Type: MEDICAID RISK BIN/PCN if applicable: Cardholder ID:[id number] Person Code: Relationship Code: Help desk phone: FAXED TO PRIOR AUTH documented in this encounter Plan of Treatment Not on file documented as of this encounter Visit Diagnoses Not on filedocumented in this encounter Care Teams Litigation Legal Secretary Relationship Specialty Start Date End Date Darshana Leon MD PCP - General Internal Medicine 10/03/12 04/23/22 Marj Gonzales MD [address] [place] [address] PCP - General Internal Medicine 04/24/22 09/02/22 Krystal Dozier MD [address] [place] [address] PCP - General Internal Medicine 09/03/22 09/12/23 [facility], Pcp [address] [place] [address] PCP - General Internal Medicine 09/13/23 [facility] 08/13/22 Malvin clifford Pulmonology 08/13/22 documented as of this encounter
--- OUTSIDE RECORDS SUMMARY | 2025-01-07 15:06 | XMS_ITS | Encounter Summary ---
Author Organization [facility] Address [address] [place] [address] Care Team Providers Care Roofing Foreman Name Role Phone Darshana Leon MD Primary Care Provider Marj Arenas MD Primary Care Provider [phone] Krystal Dozier MD Primary Care Provider [phone] [facility], Pcp Primary Care Provider Unavailnavos health e Encounter Details Date Type Department Care Team Description 02/28/2018 Telephone Medicine/Pediatrics - [address] [phone] Darshana Leon MD Social History Tobacco Use [...] encounter Miscellaneous Notes * Telephone Encounter - Jyoti Yang - 02/28/2018 1:04 PM EDT Error documented in this encounter Plan of Treatment Not on file documented as of this encounter Visit Diagnoses Not on filedocumented in this encounter Care Teams Roofing Foreman Relationship Specialty Start Date End Date Darshana Leon MD PCP - General Internal Medicine 10/03/12 04/23/22 Marj Gonzales MD [address] [place] [address] PCP - General Internal Medicine 04/24/22 09/02/22 Krystal Dozier MD [address] [place], [place] [phone] PCP - General Internal Medicine 09/03/22 09/12/23 Paulina Pandya [address] [place] [address] PCP - General Internal Medicine 09/13/23 [facility] 08/13/22 Malivn clifford Pulmonology 08/13/22 documented as of this encounter
--- OUTSIDE RECORDS SUMMARY | 2025-01-07 15:06 | XMS_ITS | Clinical Summary ---
Author Organization [facility] Address [address] [place] [address] Care Team Providers Care Iron Installer Name Role Phone Community, Pcp Primary Care Provider Unavailabl e Allergies Active Allergy Reactions Severity Noted Date Comments Meperidine Hcl Hives/Urticaria 07/07/2013 Iodine 10/06/2012 Iron Hives/Urticaria,Itch i ng/Pruritus 01/13/2014 Iron infusion Alc-Carlos Aaq-Jilcxlcykcpp-Qvpsbf Glycol 10/06/2012 Medrol - shortness of breath Medications Medication Sig Dispensed Refills Start Date End Date Status loratadine (CLARITIN) 10 MG tablet Take 1 Tab by mouth daily. 30 Tab 5 02/15/2015 Active fluticasone (FLONASE) 50 MCG/ACT nasal spray Use 2 spray per nostril daily. 1 Bottle 5 09/05/2016 Active hydrOXYzine (VISTARIL) 25 MG capsule Take 1 Cap by mouth 3 times daily as needed for Anxiety. 60 Cap 2 03/24/2019 Active albuterol (PROVENTIL) (2.5 MG/3ML) 0.083% nebulizer solution Take 1 Vial by nebulization every 4 hours as needed for Wheezing. 50 Vial 0 01/26/2020 Active docusate sodium (DOCQLACE) 100 MG capsule Take 1 Cap by mouth 2 times daily as needed for Constipation. 60 Cap 3 10/14/2020 Active Cholecalciferol 1.25 MG (33526 UT) Cap Take 1 capsule by mouth once a week. 12 capsule 1 09/21/2021 Active ketotifen 0.025 % ophthalmic solution 0 10/05/2021 Active montelukast (SINGULAIR) 10 MG tablet 0 10/12/2021 Active Triamcinolone Acetonide 55 MCG/ACT Aerosol 0 09/07/2021 Active sumatriptan (IMITREX) 25 MG tablet TAKE 1 TABLET AT ONSET OF MIGRAINE, MAY REPEAT DOSE ONCE AFTER 2 HOURS, IF NEEDED. 9 Tablet 1 06/08/2022 Active omeprazole (PRILOSEC) 40 MG capsule TAKE 1 CAPSULE BY MOUTH EVERY DAY 90 Capsule 0 07/27/2022 Active quetiapine (SEROQUEL) 50 MG tablet TAKE 1 TABLET BY MOUTH EVERYDAY AT BEDTIME 0 07/16/2022 Active Melatonin 10 MG Cap TAKE 1 CAPSULE BY MOUTH EVERYDAY AT BEDTIME 0 07/02/2022 Active mirtazapine (REMERON) 15 MG tablet TAKE 1 TABLET BY MOUTH EVERYDAY AT BEDTIME 0 07/16/2022 Active Ventolin HFA 108 (90 Base) MCG/ACT Aero Soln Inhale 2 Puffs into the lungs every 4 hours as needed for Cough or Wheezing. BRAND NAME VENTOLIN ONLY 8.5 g 0 08/13/2022 Active Montelukast Sodium Powder by Does not apply route. 0 Active morphine (MSIR) 15 MG tablet Take 1 Tablet by mouth 2 times daily as needed for Pain (pain > 8/10) for up to 14 days. 28 Tablet 0 11/07/2022 Active Morphine Sulfate ER 15 MG Tab CR Take 1 Tablet by mouth daily. 14 Tablet 0 11/08/2022 Active levothyroxine 100 MCG tablet TAKE 1 TABLET BY MOUTH EVERY DAY 90 Tablet 1 03/15/2023 Active Active Problems Problem Noted Date Elevated antinuclear antibody (ROSI) leve l 06/15/2020 Iron deficiency anemia due to chronic bl ood loss 03/20/2019 Vitamin D deficiency 03/20/2019 Trochanteric bursitis of both hips 07/29 Asthma 02/15/2015 Herniated lumbar intervertebral disc 08/2014 Overview: L5-S1 Osteoarthritis of lumbar spine 4 H/O Graves' disease 09/06/2014 Overview: CURRY ~2006. 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 hav e not been able to contact Overview: see MRI 04/2018 Immunizations Name Administration Dates Next Due COVID-19 (Moderna) 04/23/2022,11/03/2021, 021 COVID-19 (Moderna) PT Reported 10/06/2021 Influenza (> 6 Months) 08/17/2020,10/06/2012 Pneumovax Adult(PT Reported) 07/07/2010 TD (STATE SUPPLIED FOR ADULTS AND CHILDREN) 11/04 Family History Medical History Relation Name Comments CA Colon Brother [place] Maternal Grandmother CA Breast Negative Hx CA Ovarian Negative Hx Uterine Cancer Negative Hx Relation Name Status Comments Aunt x3 all of leukemia Brother Daughter Alive 1991; Kerrie Father unk; never met Maternal Grandfather Maternal Grandmother [place] Mother (Age 28) chol, HTN; pt does not know reason for Paternal Grandfather Paternal Grandmother Son 1 Alive 1990; [place]; anxiety/depression Son 2 Alive 2004; asthma, O SA Social History Tobacco Use Types Packs/Day Years Used Date Smoking Tobacco: Never Smokeless Tobacco: Never Tobacco Cessation:Counseling Given: Not Answered Alcohol Use Standard Drinks/Week Comments No 0 (1 standard drink = 0.6 oz pur e alcohol) Sex Assigned at Date Recorded Not on file Job Start Date Occupation Industry Not on file Not on file Not on file Last Filed Vital Signs Vital Sign Reading Time Taken Comments Blood Pressure 123/88 11/06/2022 1:03 PM EST Pulse 95 11/06/2022 1:03 PM EST Temperature 36.7 ??C (98.1 ??F) 11/06/2022 1:03 PM ES T Respiratory Rate 16 11/06/2022 1:03 PM EST Oxygen Saturation 98% 09/05/2016 3:39 PM EDT Inhaled Oxygen Concentration - - Weight 67.1 kg (148 lb) 11/06/2022 1:03 PM EST Height 147.3 cm (4' 10 ) 08/13/2022 10:12 AM EDT Body Mass Index 30.93 08/13/2022 10:12 AM EDT Plan of Treatment Health Maintenance Due Date Last Done Comments HEPATITIS C SCREENING 1987 DTAP/TDAP/TD (1 - Tdap) 11/20/2011 11/19/2011 BASELINE HEALTH EXAM 40-64 08/05/2017 08/05/2015, COLON CANCER SCREENING 2019 SHINGLES VACCINE (1 of 2) 2019 MAMMOGRAM 02/09/2023 02/09/2022 CHOLESTEROL SCREENING 07/01/2024 07/01/2019 , 10/06/2012, 10/06/2012 Covid-19 Vaccine (5 - 2022-2 4 season) 2024 04/23/2022, 11/03/2021, 10/06/2021, Additional history exists INFLUENZA (#1) 2024 08/17/2020, 10/06/2012 BMI CHECK/ADVISE 11/04/2024 11/06/2022, 08/2022, 10/18/2021, Additional history exists DEPRESSION SCREENING/FOLLOWUP 11/04/2024, 06/07/2020, 06/07/2020, Additional history exists SOCIAL NEEDS SCREENING 11/04/2024 CERVICAL CANCER SCREENING 02/09/2025 02/09/2022, 02/2014 PNEUMOCOCCAL VACCINE FOR HIG H RISK PATIENTS (#2) 2034 07/07/2010 Care Teams Iron Installer Relationship Specialty Start Date End Date Community, Pcp PCP - General Internal Medicine 09/13/23 [facility] 08/13/22 Malvin clifford Pulmonology 08/13/22
--- OUTSIDE RECORDS SUMMARY | 2025-01-07 15:06 | XMS_ITS | Encounter Summary ---
Author Organization [facility] Address [address] [place] [address] Care Team Providers Care Research Laboratory Specialist Name Role Phone Darshana Leon MD Primary Care Provider Marj Arenas MD Primary Care Provider Krystal Dozier MD Primary Care Provider [phone] [facility], [facility], Pcp Primary Care Provider [facility] Reason for Visit * Reason Onset Date Comments Form 08/09/2016 PT Encounter Details Date Type Department Care Team Description 08/09/2016 Telephone Medicine/Pediatrics - [address] [phone] Darshana Leon MD Form (PT) Social History Tobacco Use Types Packs/Day Years [...] encounter Miscellaneous Notes * Telephone Encounter - Jannie Hernandez - 08/21/2016 3:40 PM EDT . * Telephone Encounter - Martha Giorgi - 08/21/2016 12:17 PM EDT Patient calling to see what kind of FORM that darshana leon is supposed to fill out for disability. She is also looking for in home physical therapy. The law firm handling pts case called her formwas supposed to fill out was sent back to rachel white. * Telephone Encounter - Darshana Leon MD - 08/10/2016 5:48 PM EDT 2 different messages on this pt but only had one form to complete. * Telephone Encounter - Phong Hernandez M.A. - 08/09/2016 3:40 PM EDT Please review, sign and date. Thank you. documented in this encounter Plan of Treatment Not on file documented as of this encounter Visit Diagnoses Not on filedocumented in this encounter Care Teams Research Laboratory Specialist Relationship Specialty Start Date End Date Darshana Leon MD PCP - General Internal Medicine 10/03/12 04/23/22 Marj Gonzales MD [address] [place] [address] PCP - General Internal Medicine 04/24/22 09/02/22 Krystal Dozier MD [address] [place] [address] PCP - General Internal Medicine 09/03/22 09/12/23 Mumtaz, [address] [address] PCP - General Internal Medicine 09/13/23 [facility] 08/13/22 Malvin clifford Pulmonology 08/13/22 documented as of this encounter
--- OUTSIDE RECORDS SUMMARY | 2025-01-07 15:06 | XMS_ITS | Encounter Summary ---
Author Organization [facility] Address [address] [place] [address] Care Team Providers Care Adjustment Clerk Name Role Phone Krystal Dozier MD Primary Care Provider [phone] [facility], Pcp Primary Care Provider Unavailabl e Encounter Details Date Type Department Care Team Description 10/17/2022 [facility] Medical Records [address] [place] [address] Abstract, Provider Social History Tobacco Use Types Packs/Day Years [...] on filedocumented in this encounter Care Teams Adjustment Clerk Relationship Specialty Start Date End Date Krystal Dozier MD [address] [place] [address] PCP - General Internal Medicine 09/03/22 09/12/23 [facility], Pcp [address] [place] [address] PCP - General Internal Medicine 09/13/23 [facility] 08/13/22 Malvin clifford Pulmonology 08/13/22 documented as of this encounter
--- OUTSIDE RECORDS SUMMARY | 2025-01-07 15:06 | XMS_ITS | Encounter Summary ---
Author Organization [facility] Address [address] [place] [address] Care Team Providers Care Agricultural Engineering Teacher Name Role Phone Darshana Leon MD Primary Care Provider Marj Arenas MD Primary Care Provider [phone] Krystal Dozier MD Primary Care Provider [phone] [facility], Pcp Primary Care Provider Unavailabl e Encounter Details Date Type Department Care Team Description 09/10/2016 Release of Information Medical Records [address] [place] [address] Abstract, Provider Social History Tobacco Use Types [...] on filedocumented in this encounter Care Teams Agricultural Engineering Teacher Relationship Specialty Start Date End Date Darshana Leon MD PCP - General Internal Medicine 10/03/12 04/23/22 Marj Gonzales MD [address] [place] [address] PCP - General Internal Medicine 04/24/22 09/02/22 Krystal Dozier MD [address] [place] [address] PCP - General Internal Medicine 09/03/22 09/12/23 [facility], Pcp [address] [place] [address] PCP - General Internal Medicine 09/13/23 [facility] 08/13/22 Malvin clifford Pulmonology 08/13/22 documented as of this encounter
--- OUTSIDE RECORDS SUMMARY | 2025-01-07 15:07 | XMS_ITS | Encounter Summary ---
Author Organization [facility] Address [address] [place] [address] Care Team Providers Care Health Education Assistant Name Role Phone Darshana Leon MD Primary Care Provider Marj Arenas MD Primary Care Provider [phone] Krystal Dozier MD Primary Care Provider [facility], Pcp Primary Care Provider Unavailabl e Encounter Details Date Type Department Care Team Description 10/07/2012 Release of Information Medical Records [address] [place] [address] Abstract, Provider Social History Tobacco Use Types [...] on filedocumented in this encounter Care Teams Health Education Assistant Relationship Specialty Start Date End Date Darshana Leon MD PCP - General Internal Medicine 10/03/12 04/23/22 Marj Gonzales MD [address] [place] [address] PCP - General Internal Medicine 04/24/22 09/02/22 Krystal Dozier MD [address] [place] [address] PCP - General Internal Medicine 09/03/22 09/12/23 [facility], Pcp [address] [place] [address] PCP - General Internal Medicine 09/13/23 [facility] 08/13/22 Malvin clifford Pulmonology 08/13/22 documented as of this encounter
--- OUTSIDE RECORDS SUMMARY | 2025-01-07 15:07 | XMS_ITS | Encounter Summary ---
Author Organization [facility] Address [address] [place] [address] Care Team Providers Care Manager Line Name Role Phone Darshana Leon MD Primary Care Provider Marj Arenas MD Primary Care Provider [phone] Krystal Dozier MD Primary Care Provider [facility], Pcp Primary Care Provider [facility] e Encounter Details Date Type Department Care Team Description 10/21/2014 Assistant Account Manager Report Medical Records [address] [place] [address] Javid Orellana MD Social History Tobacco Use Types Packs/Day [...] on filedocumented in this encounter Care Teams Manager Line Relationship Specialty Start Date End Date Darshana Leon MD PCP - General Internal Medicine 10/03/12 04/23/22 Marj Gonzales MD [address] [place] [address] PCP - General Internal Medicine 04/24/22 09/02/22 Krystal Dozier MD [address] [place] [address] PCP - General Internal Medicine 09/03/22 09/12/23 [facility], [facility] [address] [place] [address] PCP - General Internal Medicine 09/13/23 [facility] 08/13/22 Malvin clifford Pulmonology 08/13/22 documented as of this encounter
--- OUTSIDE RECORDS SUMMARY | 2025-01-07 15:07 | XMS_ITS | Encounter Summary ---
Author Organization [facility] Address [address] [place] [address] Care Team Providers Care Gas Prover Name Role Phone Darshana Leon MD Primary Care Provider Marj Arenas MD Primary Care Provider Krystal Dozier MD Primary Care Provider [phone] [facility], Pcp Primary Care Provider Unavailabl e Reason for Visit * Reason Onset Date Comments Provider Call Back 10/15/2014 Encounter Details Date Type Department Care Team Description 10/15/2014 Telephone Medicine/Pediatrics - [address] [phone] Darshana Leon MD Provider Call Back Social History Tobacco Use Types Packs/Day Years [...] Miscellaneous Notes * Telephone Encounter - Jyoti Renae L.P.N. - 10/15/2014 12:15 PM EST Patient was sent to Dr Hebert as she could not go to [facility] with her insurance For colonoscopy She now has new Insurance and does not want to have the colonoscopy done at [facility] , prefers [facility] or [facility] appt was cancelled per patient Will have gastro review as patient saw Sumit Nelson * Telephone Encounter - Helen Decker - 10/15/2014 11:57 AM EST Caller requesting call back from provider: Is the caller the patient? YES If caller is not the patient, what is the callers name? N/A Callers relationship to patient? N/A If person calling is not the patient themselves, is there a verbal release in FYI or permanent comments for this person: YES Reason for call back: Patient has appointment at [facility] for a colonoscopy, it is set up for . She states she does NOT want to go to [place], she wants to get it done at [facility] instead. She is looking to see if we can place a referral order for [facility] instead, please advise Caller offered to speak with the nurse for assistance: YES Response: Patient offered to speak with nurse for assistance and patient agreed. Message forwarded to nurse. documented in this encounter Plan of Treatment Not on file documented as of this encounter Visit Diagnoses Not on filedocumented in this encounter Care Teams Gas Prover Relationship Specialty Start Date End Date Darshana Leon MD PCP - General Internal Medicine 10/03/12 04/23/22 Marj Gonzales MD [address] [place] [address] PCP - General Internal Medicine 04/24/22 09/02/22 Krystal Dozier MD [address] [place] [address] PCP - General Internal Medicine 09/03/22 09/12/23 [facility], [address] [address] PCP - General Internal Medicine 09/13/23 [facility] 08/13/22 Malvin clifford Pulmonology 08/13/22 documented as of this encounter
--- OUTSIDE RECORDS SUMMARY | 2025-01-07 15:07 | XMS_ITS | Encounter Summary ---
Author Organization [facility] Address [address] [place] [address] Care Team Providers Care Manager Pipeline Name Role Phone Darshana Leon MD Primary Care Provider Marj Arenas MD Primary Care Provider [phone] Krystal Dozier MD Primary Care Provider [phone] [facility], Pcp Primary Care [facility] Reason for Visit * Reason Onset Date Comments Provider Call Back 09/15/2013 Encounter Details Date Type Department Care Team Description 09/15/2013 Telephone Physiatry - [address] [address] Janeth Louis PA-C Provider Call Back Social History Tobacco Use [...] encounter Miscellaneous Notes * Telephone Encounter - Jeanine Gan M.A. - 09/16/2013 4:06 PM EST Patient aware * Telephone Encounter - Jeanine Gan M.A. - 09/15/2013 11:44 AM EST Message left for patient to call * Telephone Encounter - Janeth Louis PA-C - 09/15/2013 10:41 AM EST Please contact patient and inform her that she can take 2 100mg caps three times a day. (doubled the dose) New Rx to pharmacy. * Telephone Encounter - Jeanine Gan M.A. - 09/15/2013 10:27 AM EST I spoke with patient and she is going to contact her PCP to discuss any narcotic increases. Patientis requesting from you that her dose of Gabapentin be increased. She is currently taking 100mg three times daily. Patient feels this has made a difference with her joint pain. * Telephone Encounter - Kamini Goodwin - 09/15/2013 9:57 AM EST Patient calling because she said that Janeth said when she got an appointment with a surgeon to lether know, Her appointment is scheduled for this at [address] [place] [address] in [place]. . Also she wants to know if you can prescribe something stronger for her back pain she is still in a great deal of pain, and still is waking up stiff. documented in this encounter Plan of Treatment Not on file documented as of this encounter Visit Diagnoses Not on filedocumented in this encounter Care Teams Manager Pipeline Relationship Specialty Start Date End Date Darshana Leon MD PCP - General Internal Medicine 10/03/12 04/23/22 Marj Gonzales MD [address] [place] [address] PCP - General Internal Medicine 04/24/22 09/02/22 Krystal Dozier MD [address] [place] [address] PCP - General Internal Medicine 09/03/22 09/12/23 [facility], Pcp [address] [place] [address] PCP - General Internal Medicine 09/13/23 [facility] 08/13/22 Malvin clifford Pulmonology 08/13/22 documented as of this encounter
--- OUTSIDE RECORDS SUMMARY | 2025-01-07 15:07 | XMS_ITS | Encounter Summary ---
Author Organization [facility] Address [address] [place] [address] Care Team Providers Care Armor Reconnaissance Vehicle Driver Name Role Phone Darshana Leon MD Primary Care Provider Marj Arenas MD Primary Care Provider [phone] Krystal Dozier MD Primary Care Provider [facility], Pcp Primary Care Provider Unavailabl e Reason for Referral * EXTERNAL (Routine) - Closed Specialty Diagnoses / Procedures Referred By Contasael t Referred To Contact Physiatry Procedures REFERRAL TO PHYSIATRY Aileen Parker MD [address] [place] [address] [place] [address] [facility] [address] [place] [address] Referral ID Status Reason Start Date Expiration Date V isits Requested Visits Authorized SEE REVIEW ON 11/20/2016 Closed 11/14/2016 1 1 Reason for Visit * Reason Onset Date Comments Medical Records 11/08/2016 Encounter Details Date Type Department Care Team Description 11/08/2016 Telephone Physiatry - [facility] [address] [place] [address] Aileen Parker MD [address] [place] [address] Dr LUIS M [place] [id number] Medical Records Social History Tobacco Use Types Packs/Day Years [...] encounter Miscellaneous Notes * Telephone Encounter - Aileen Parker MD - 11/14/2016 8:18 AM EST Referral placed * Telephone Encounter - Jeanine Gan M.A. - 11/09/2016 2:02 PM EST I spoke to patient and she would like referral to [facility] Dr Palmer . * Telephone Encounter - Darshana Leon MD - 11/08/2016 9:38 PM EST Noted. * Telephone Encounter - Sindy Bobo M.A. - 11/08/2016 9:54 AM EST Called patient at listed phone numbers, No answer, left a message to call Dept back at [phone] * Telephone Encounter - Aileen Parker MD - 11/08/2016 9:46 AM EST Kindly inform patient that I received notes from Dr. Nicolas ospina in 2013. It listed allergy to prednisone, medrol, triamcinolone, among others. It did not say whether patient finished steroid testing. So this information does not help us to decide whether we can trial steroid injections to her neck or back. I therefore recommend referral to [facility] for either spinal cord stimulator or radiofrequencyablation (both of which do not need steroid). Cc to PCP also. documented in this encounter Plan of Treatment Not on file documented as of this encounter Visit Diagnoses Not on filedocumented in this encounter Care Teams Armor Reconnaissance Vehicle Driver Relationship Specialty Start Date End Date Darshana Leon MD PCP - General Internal Medicine 10/03/12 04/23/22 Marj Gonzales MD [address] [place] [address] PCP - General Internal Medicine 04/24/22 09/02/22 Krystal Dozier MD [address] [place] [address] PCP - General Internal Medicine 09/03/22 09/12/23 [facility], [address] [address] PCP - General Internal Medicine 09/13/23 [facility] 08/13/22 Malvin clifford Pulmonology 08/13/22 documented as of this encounter
--- OUTSIDE RECORDS SUMMARY | 2025-01-07 15:07 | XMS_ITS | Encounter Summary ---
Author Organization [facility] Address [address] [place] [address] Care Team Providers Care Marine Animal Trainer Name Role Phone Darshana Leon MD Primary Care Provider Marj Arenas MD Primary Care Provider [phone] Krystal Dozier MD Primary Care Provider [phone] [facility], [facility], Pcp Primary Care Provider Unavailabl e Encounter Details Date Type Department Care Team Description 08/26/2017 Release of Information Medical Records [address] [place] [address] Abstract, Provider Social History Tobacco Use Types [...] on filedocumented in this encounter Care Teams Marine Animal Trainer Relationship Specialty Start Date End Date Darshana Leon MD PCP - General Internal Medicine 10/03/12 04/23/22 Marj Gonzales MD [address] [place] [address] PCP - General Internal Medicine 04/24/22 09/02/22 Krystal Dozier MD [address] [place] [address] PCP - General Internal Medicine 09/03/22 09/12/23 [facility], Pcp [address] [place] [address] PCP - General Internal Medicine 09/13/23 [facility] 08/13/22 Malvin clifford Pulmonology 08/13/22 documented as of this encounter
--- OUTSIDE RECORDS SUMMARY | 2025-01-07 15:07 | XMS_ITS | Encounter Summary ---
Author Organization [facility] Address [address] [place] [address] Care Team Providers Care Dental Manager Name Role Phone Darshana Leon MD Primary Care Provider Marj Arenas MD Primary Care Provider [phone] Krystal Dozier MD Primary Care Provider [facility], Pcp Primary Care Provider [facility] e Encounter Details Date Type Department Care Team Description 05/12/2014 Field Sales Agent Report Medical Records [address] [place] [address] Mahsa Bautista MD Social History Tobacco Use Types Packs/Day [...] on filedocumented in this encounter Care Teams Dental Manager Relationship Specialty Start Date End Date Darshana Leon MD PCP - General Internal Medicine 10/03/12 04/23/22 Marj Gonzales MD [address] [place] [address] PCP - General Internal Medicine 04/24/22 09/02/22 Krystal Dozier MD [address] [place] [address] PCP - General Internal Medicine 09/03/22 09/12/23 [facility], Pcp [address] [place] [address] PCP - General Internal Medicine 09/13/23 [facility] 08/13/22 Malvin clifford Pulmonology 08/13/22 documented as of this encounter
--- OUTSIDE RECORDS SUMMARY | 2025-01-07 15:07 | XMS_ITS | Encounter Summary ---
Author Organization [facility] Address [address] [place] [address] Care Team Providers Care Loom Starter Name Role Phone Darshana Leon MD Primary Care Provider Marj Arenas MD Primary Care Provider [phone] Krystal Dozier MD Primary Care Provider [facility], Pcp Primary Care Provider Unavailabl e Encounter Details Date Type Department Care Team Description 12/16/2013 Handbook Writer Report Medical Records [address] [place] [address] Mariana Valenzuela MD Social History Tobacco Use Types Packs/Day [...] on filedocumented in this encounter Care Teams Loom Starter Relationship Specialty Start Date End Date Darshana Leon MD PCP - General Internal Medicine 10/03/12 04/23/22 Marj Gonzales MD [address] [place] [address] PCP - General Internal Medicine 04/24/22 09/02/22 Krystal Dozier MD [address] [place] [address] PCP - General Internal Medicine 09/03/22 09/12/23 [facility], Pcp [address] [place] [address] PCP - General Internal Medicine 09/13/23 [facility] 08/13/22 Malvin clifford Pulmonology 08/13/22 documented as of this encounter
--- OUTSIDE RECORDS SUMMARY | 2025-01-07 15:07 | XMS_ITS | Encounter Summary ---
Author Organization [facility] Address [address] [place] [address] Care Team Providers Care Experimental Display Builder Name Role Phone Darshana Leon MD Primary Care Provider Marj Arenas MD Primary Care Provider [phone] Krystal Dozier MD Primary Care Provider [phone] [facility], Pcp Primary Care Provider Unavailabl e Encounter Details Date Type Department Care Team Description 06/05/2019 Release of Information Medical Records [address] [place] [address] Abstract, Provider Social History Tobacco Use Types [...] on filedocumented in this encounter Care Teams Experimental Display Builder Relationship Specialty Start Date End Date Darshana Leon MD PCP - General Internal Medicine 10/03/12 04/23/22 Marj Gonzales MD [address] [place] [address] PCP - General Internal Medicine 04/24/22 09/02/22 Krystal Dozier MD [address] [place] [address] PCP - General Internal Medicine 09/03/22 09/12/23 [facility], Pcp [address] [place] [address] PCP - General Internal Medicine 09/13/23 [facility] 08/13/22 Malvin clifford Pulmonology 08/13/22 documented as of this encounter
--- OUTSIDE RECORDS SUMMARY | 2025-01-07 15:07 | XMS_ITS | Encounter Summary ---
Author Organization [facility] Address [address] [place] [address] Care Team Providers Care Medicare Sales Representative Name Role Phone Darshana Leon MD Primary Care Provider Marj Arenas MD Primary Care Provider [phone] Krystal Dozier MD Primary Care Provider [phone] [facility], Pcp Primary Care Provider [facility] Encounter Details Date Type Department Care Team Description 01/23/2021 [facility] Medical Records [address] [place] [address] Abstract, Provider Social History Tobacco Use Types [...] on filedocumented in this encounter Care Teams Medicare Sales Representative Relationship Specialty Start Date End Date Darshana Leon MD PCP - General Internal Medicine 10/03/12 04/23/22 Marj Gonzales MD [address] [place] [address] PCP - General Internal Medicine 04/24/22 09/02/22 Krystal Dozier MD [address] [place] [address] PCP - General Internal Medicine 09/03/22 09/12/23 [facility], Pcp [address] [place] [address] PCP - General Internal Medicine 09/13/23 [facility] 08/13/22 Malvin clifford Pulmonology 08/13/22 documented as of this encounter
--- OUTSIDE RECORDS SUMMARY | 2025-01-07 15:07 | XMS_ITS | Encounter Summary ---
Author Organization [facility] Address [address] [place] [address] Care Team Providers Care Visitor Services Information Assistant Name Role Phone Darshana Leon MD Primary Care Provider Marj Arenas MD Primary Care Provider [phone] Krystal Dozier MD Primary Care Provider [facility], Pcp Primary Care Provider Unavailabl e Encounter Details Date Type Department Care Team Description 08/05/2013 Healthcare Interpreter Report Medical Records [address] [place] [address] Mariana Valenzuela MD Social History Tobacco Use [...] on filedocumented in this encounter Care Teams Visitor Services Information Assistant Relationship Specialty Start Date End Date Darshana Leon MD PCP - General Internal Medicine 10/03/12 04/23/22 Marj Gonzales MD [address] [place] [address] PCP - General Internal Medicine 04/24/22 09/02/22 Krystal Dozier MD [address] [place] [address] PCP - General Internal Medicine 09/03/22 09/12/23 [facility], Pcp [address] [place] [address] PCP - General Internal Medicine 09/13/23 [facility] 08/13/22 Malvin clifford Pulmonology 08/13/22 documented as of this encounter
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
--- OUTSIDE RECORDS SUMMARY | 2025-01-07 15:07 | XMS_ITS | Encounter Summary ---
Author Organization [facility] Address [address] [place] [address] Care Team Providers Care Asparagus Cutter Name Role Phone Darshana Leon MD Primary Care Provider Marj Arenas MD Primary Care Provider Krystal Dozier MD Primary Care Provider [phone] [facility], Pcp Primary Care Provider Unavailabl e Encounter Details Date Type Department Care Team Description 08/05/2015 Orders Only Medicine/Pediatrics - [address] [phone] Darshana Leon MD Abdominal pain, left lower quadrant (Primary Dx); Hypothyroidism following radioiodine therapy Social History Tobacco Use Types Packs/Day Years [...] documented as of this encounter Results * RBC SEDIMENTATION RATE, NON-AUTO (08/27/2015 11:18 AM EDT) ESR 16 0 - 20 mm/hr 08/27/2015 1:35 PM EDT [facility] 08/27/2015 11:1 8 AM EDT 08/27/2015 11:19 AM EDT Darshana Leon MD LAB [address] [place] * (ABNORMAL) COMPREHENSIVE METABOLIC PANEL (08/27/2015 11:18 AM EDT) GLUCOSE 75 70 - 100 mg/dL 08/27/2015 1:00 PM [facility] Comment: Reference range applicable to fasting specimens only Based on recommendations from the ADA and AACE, the fasting glucose reference range has been changed to 70-100 mg/dL. ??This change is effective March 20, 2010 BUN 16 5 - 25 mg/dL 08/27/2015 1:00 PM [facility] CREAT 0.6(L) 0.7 - 1.5 mg/dL 08/27/2015 1:00 PM [facility] BUN/CREAT RATIO 26.7(H) 6.0 - 20.0 08/27/2015 1:00 PM [facility] GFR > 60 >60 08/27/2015 1:17 PM [facility] Comment: If patient is -Prydeinig, multiply result by 1.21 Chronic Kidney Disease: < 60 ml/min/1.73 square meters Kidney Failure: < 15 ml/min/1.73 square meters Sodium 142 133 - 145 mEq/L 08/27/2015 1:00 PM [facility] Potassium 4.2 3.5 - 5.5 mEq/L 08/27/2015 1:00 PM [facility] Chloride 104 96 - 108 mEq/L 08/27/2015 1:00 PM [facility] CO2 27.6 21.0 - 32.0 mEq/L 08/27/2015 1:00 PM [facility] CALCIUM 9.7 8.5 - 10.5 mg/dL 08/27/2015 1:00 PM [facility] TOTAL PROTEIN 7.0 6.0 - 8.3 gm/dL 08/27/2015 1:00 PM [facility] Albumin 4.4 3.2 - 5.6 gm/dL 08/27/2015 1:00 PM [facility] GLOBULIN 2.6 1.9 - 4.4 gm/dL 08/27/2015 1:00 PM EDT [facility] A/G RATIO 1.7 1.1 - 2.3 08/27/2015 1:00 PM EDT [facility] BILI,TOTAL 0.3 0.0 - 1.2 mg/dL 08/27/2015 1:00 PM EDT [facility] AST (SGOT) 25 10 - 42 U/L 08/27/2015 1:00 PM EDT [facility] ALT( SGPT) 28 10 - 60 U/L 08/27/2015 1:00 PM EDT [facility] ALK PHOS 68 42 - 121 U/L 08/27/2015 1:00 PM EDT [facility] 08/27/2015 11:1 8 AM EDT 08/27/2015 11:19 AM EDT Darshana Leon MD LAB Performing Organization Address City/State/[facility] de Phone Number [facility] [address] [facility] * (ABNORMAL) CBC (AUTO DIFF PLATELET) (08/27/2015 11:18 AM EDT) WBC 6.1 4.8 - 10.8 x10-3 08/27/2015 11:43 AM EDT [facility] RBC 4.5 3.8 - 4.8 x10-6 08/27/2015 11:43 AM EDT [facility] HGB 10.6(L) 11.5 - 16.0 g/dl 08/27/2015 11:43 AM EDT [facility] HCT 34.5(L) 35 - 47 % 08/27/2015 11:43 AM EDT [facility] MCV 76.7(L) 79 - 98 fl 08/27/2015 11:43 AM EDT [facility] MCH 23.6(L) 27 - 32 pg 08/27/2015 11:43 AM EDT [facility] MCHC 30.7(L) 32 - 37 g/dl 08/27/2015 11:43 AM EDT [facility] RDW 15.7(H) 11 - 15 % 08/27/2015 11:43 AM EDT [facility] PLT COUNT 263 130 - 400 x10-3 08/27/2015 11:43 AM EDT [facility] MEAN PLATELET VOLUME 11.6(H) 7 - 11 fl 08/27/2015 11:43 AM EDT [facility] NEUT % 50.6 41 - 85 % 08/27/2015 11:43 AM EDT [facility] LYMPH % 33.4 15 - 48 % 08/27/2015 11:43 AM EDT [facility] MONO % 9.7 0 - 12 % 08/27/2015 11:43 AM EDT [facility] EOS % 5.2(H) 0 - 5 % 08/27/2015 11:43 AM EDT [facility] BASO % 1.1 0 - 2 % 08/27/2015 11:43 AM EDT [facility] 08/27/2015 11:1 8 AM EDT 08/27/2015 11:19 AM EDT Darshana Leon MD LAB Performing Organization Address [facility] de Phone Number [address] * TSH (08/27/2015 11:18 AM EDT) TSH 3.08 0.40 - 4.00 mIU/ml 08/27/2015 1:00 PM EDT [facility] 08/27/2015 11:1 8 AM EDT 08/27/2015 11:19 AM EDT Darshana Leon MD LAB Performing Organization Address [facility] de Phone Number [address] documented in this encounter Visit Diagnoses Diagnosis Abdominal pain, left lower quadrant- Primary Hypothyroidism following radioiodine therapy Other postablative hypothyroidism documented in this encounter Care Teams Asparagus Cutter Relationship Specialty Start Date End Date Darshana Leon MD PCP - General Internal Medicine 10/03/12 04/23/22 Marj Gonzales MD [address] [place] [address] PCP - General Internal Medicine 04/24/22 09/02/22 Krystal Dozier MD [address] [place] [address] PCP - General Internal Medicine 09/03/22 09/12/23 Paulina Pandya [address] [place] [address] PCP - General Internal Medicine 09/13/23 [facility] 08/13/22 Malvin clifford Pulmonology 08/13/22 documented as of this encounter
--- OUTSIDE RECORDS SUMMARY | 2025-01-07 15:07 | XMS_ITS | Encounter Summary ---
Author Organization [facility] Address [address] [place] [address] Care Team Providers Care Senior Stack Engineer Name Role Phone Darshana Leon MD Primary Care Provider Marj Arenas MD Primary Care Provider [phone] Krystal Dozier MD Primary Care Provider [phone] [facility], Pcp Primary Care Provider Unavailabl e Encounter Details Date Type Department Care Team Description 07/07/2014 Release of Information Medical Records [address] [place] [address] Abstract, Provider Social History Tobacco Use Types [...] on filedocumented in this encounter Care Teams Senior Stack Engineer Relationship Specialty Start Date End Date Darshana Leon MD PCP - General Internal Medicine 10/03/12 04/23/22 Marj Gonzales MD [address] [place] [address] PCP - General Internal Medicine 04/24/22 09/02/22 Krystal Dozier MD [address] [place] [address] PCP - General Internal Medicine 09/03/22 09/12/23 [facility], Pcp [address] [place] [address] PCP - General Internal Medicine 09/13/23 [facility] 08/13/22 Malvin clifford Pulmonology 08/13/22 documented as of this encounter
--- OUTSIDE RECORDS SUMMARY | 2025-01-07 15:07 | XMS_ITS | Encounter Summary ---
Author Organization [facility] Address [address] [place] [address] Care Team Providers Care Environmental Services Technician Name Role Phone Darshana Leon MD Primary Care Provider Marj Arenas MD Primary Care Provider [phone] Krystal Dozier MD Primary Care Provider [phone] [facility], Pcp Primary Care [facility] Encounter Details Date Type Department Care Team Description 11/07/2016 [facility] Medical Records [address] [place] [address] Abstract, Provider Social History Tobacco Use Types [...] on filedocumented in this encounter Care Teams Environmental Services Technician Relationship Specialty Start Date End Date Darshana Leon MD PCP - General Internal Medicine 10/03/12 04/23/22 Marj Gonzales MD [address] [place] [address] PCP - General Internal Medicine 04/24/22 09/02/22 Krystal Dozier MD [address] [place] [address] PCP - General Internal Medicine 09/03/22 09/12/23 [facility], Pcp [address] [place] [address] PCP - General Internal Medicine 09/13/23 [facility] 08/13/22 Malvin clifford Pulmonology 08/13/22 documented as of this encounter
--- OUTSIDE RECORDS SUMMARY | 2025-01-07 15:07 | XMS_ITS | Encounter Summary ---
Author Organization [facility] Address [address] [place] [address] Care Team Providers Care Processing Manager Name Role Phone Darshana Leon MD Primary Care Provider Marj Arenas MD Primary Care Provider [phone] rKystal Dozier MD Primary Care Provider [phone] [facility], Pcp Primary Care Provider Unavailabl e Encounter Details Date Type Department Care Team Description 03/23/2014 Transfer Records Medical Records [address] [place] [address] Abstract, Provider Social History Tobacco Use Types [...] on filedocumented in this encounter Care Teams Processing Manager Relationship Specialty Start Date End Date Darshana Leon MD PCP - General Internal Medicine 10/03/12 04/23/22 Marj Gonzales MD [address] [place] [address] PCP - General Internal Medicine 04/24/22 09/02/22 Krystal Dozier MD [address] [place] [address] PCP - General Internal Medicine 09/03/22 09/12/23 [facility], Pcp [address] [place] [address] PCP - General Internal Medicine 09/13/23 [facility] 08/13/22 Malvin clifford Pulmonology 08/13/22 documented as of this encounter
--- OUTSIDE RECORDS SUMMARY | 2025-01-07 15:07 | XMS_ITS | Encounter Summary ---
Author Organization [facility] Address [address] [place] [address] Care Team Providers Care Director Export Name Role Phone Darshana Leon MD Primary Care Provider Marj Arenas MD Primary Care Provider [phone] Krystal Dozier MD Primary Care Provider [phone] [facility], Pcp Primary Care [facility] Encounter Details Date Type Department Care Team Description 05/20/2019 [facility] Medical Records [address] [place] [address] Abstract, Provider Social History Tobacco Use Types [...] on filedocumented in this encounter Care Teams Director Export Relationship Specialty Start Date End Date Darshana Leon MD PCP - General Internal Medicine 10/03/12 04/23/22 Marj Gonzales MD [address] [place] [address] PCP - General Internal Medicine 04/24/22 09/02/22 Krystal Dozier MD [address] [place] [address] PCP - General Internal Medicine 09/03/22 09/12/23 [facility], Pcp [address] [place] [address] PCP - General Internal Medicine 09/13/23 [facility] 08/13/22 Malvin clifford Pulmonology 08/13/22 documented as of this encounter
--- OUTSIDE RECORDS SUMMARY | 2025-01-07 15:07 | XMS_ITS | Encounter Summary ---
Author Organization [facility] Address [address] [place] [address] Care Team Providers Care Inventory Control/Shipping Receiving Name Role Phone Darshana Leon MD Primary Care Provider Marj Arenas MD Primary Care Provider [phone] Krystal Dozier MD Primary Care Provider [facility], Pcp Primary Care [facility] Encounter Details Date Type Department Care Team Description 10/06/2014 Transfer Records Medical Records [address] [place] [address] Social History Tobacco Use Types Packs/Day Years [...] on filedocumented in this encounter Care Teams Inventory Control/Shipping Receiving Relationship Specialty Start Date End Date Darshana Leon MD PCP - General Internal Medicine 10/03/12 04/23/22 Marj Gonzales MD [address] [place] [address] PCP - General Internal Medicine 04/24/22 09/02/22 Krystal Dozier MD [address] [place] [address] PCP - General Internal Medicine 09/03/22 09/12/23 [facility], Pcp [address] [place] [address] PCP - General Internal Medicine 09/13/23 [facility] 08/13/22 Malvin clifford Pulmonology 08/13/22 documented as of this encounter
--- OUTSIDE RECORDS SUMMARY | 2025-01-07 15:07 | XMS_ITS | Encounter Summary ---
Author Organization [facility] Address [address] [place] [address] Care Team Providers Care Energy Audit Advisor Name Role Phone Darshana Leon MD Primary Care Provider Marj Arenas MD Primary Care Provider [phone] Krystal Dozier MD Primary Care Provider [phone] [facility], Pcp Primary Care Provider Unavailabl e Encounter Details Date Type Department Care Team Description 01/25/2016 Release of Information Medical Records [address] [place] [address] Abstract, Provider Social History Tobacco Use Types [...] on filedocumented in this encounter Care Teams Energy Audit Advisor Relationship Specialty Start Date End Date Darshana Leon MD PCP - General Internal Medicine 10/03/12 04/23/22 Marj Gonzales MD [address] [place] [address] PCP - General Internal Medicine 04/24/22 09/02/22 Krystal Dozier MD [address] [place] [address] PCP - General Internal Medicine 09/03/22 09/12/23 [facility], Pcp [address] [place] [address] PCP - General Internal Medicine 09/13/23 [facility] 08/13/22 Malvin clifford Pulmonology 08/13/22 documented as of this encounter
--- OUTSIDE RECORDS SUMMARY | 2025-01-07 15:07 | XMS_ITS | Encounter Summary ---
Author Organization [facility] Address [address] [place] [address] Care Team Providers Care Telemetry Registered Nurse Name Role Phone Darshana Leon MD Primary Care Provider Marj Arenas MD Primary Care Provider [phone] Krystal Dozier MD Primary Care Provider [facility], Pcp Primary Care Provider Unavailabl e Encounter Details Date Type Department Care Team Description 09/11/2018 Neighborhood Worker Report Medical Records [address] [place] [address] Sri Yo NP Social History Tobacco Use Types Packs/Day Years [...] on filedocumented in this encounter Care Teams Telemetry Registered Nurse Relationship Specialty Start Date End Date aDrshana Leon MD PCP - General Internal Medicine 10/03/12 04/23/22 Marj Gonzales MD [address] [place] [address] PCP - General Internal Medicine 04/24/22 09/02/22 Krystal Dozier MD [address] [place] [address] PCP - General Internal Medicine 09/03/22 09/12/23 [facility], Pcp [address] [place] [address] PCP - General Internal Medicine 09/13/23 [facility] 08/13/22 Malvin clifford Pulmonology 08/13/22 documented as of this encounter
--- OUTSIDE RECORDS SUMMARY | 2025-01-07 15:07 | XMS_ITS | Encounter Summary ---
Author Organization [facility] Address [address] [place] [address] Care Team Providers Care Public Speaking Coach Name Role Phone Darshana Leon MD Primary Care Provider Marj Arenas MD Primary Care Provider Krystal Dozier MD Primary Care Provider [phone] [facility], Pcp Primary Care Provider Unavailabl e Encounter Details Date Type Department Care Team Description 06/02/2019 Telephone Adult Med - [place] [address] [place] [address] Lakesha Epstein PA-C Social History Tobacco Use Types Packs/Day Years [...] encounter Miscellaneous Notes * Telephone Encounter - Lakesha Epstein P.A.-C. - 06/03/2019 8:03 AM EDT Letter printed * Telephone Encounter - Lexi Goodwin - 06/02/2019 1:31 PM EDT All attempts have been made to schedule patient for a colonoscopy, no returned calls. Removing fromGI work list. documented in this encounter Plan of Treatment Not on file documented as of this encounter Visit Diagnoses Not on filedocumented in this encounter Care Teams Public Speaking Coach Relationship Specialty Start Date End Date Darshana Leon MD PCP - General Internal Medicine 10/03/12 04/23/22 Marj Gonzales MD [address] [place] [address] PCP - General Internal Medicine 04/24/22 09/02/22 Krystal Dozier MD [address] [place] [address] PCP - General Internal Medicine 09/03/22 09/12/23 [facility] [address] [place] [address] PCP - General Internal Medicine 09/13/23 [facility] 08/13/22 Malvin clifford Pulmonology 08/13/22 documented as of this encounter
--- OUTSIDE RECORDS SUMMARY | 2025-01-07 15:07 | XMS_ITS | Encounter Summary ---
Author Organization [facility] Address [address] [place] [address] Care Team Providers Care Gas Tender Name Role Phone Darshana Leon MD Primary Care Provider Marj Arenas MD Primary Care Provider [phone] Krystal Dozier MD Primary Care Provider [phone] [facility], Pcp Primary Care Provider [facility] e Encounter Details Date Type Department Care Team Description 05/17/2017 [facility] Controlled Substance Contract Medical Records [address] [place] [address] Abstract, Provider Social History Tobacco Use Types [...] filedocumented in this encounter Care Teams Gas Tender Relationship Specialty Start Date End Date Darshana Leon MD PCP - General Internal Medicine 10/03/12 04/23/22 Marj Gonzales MD [address] [place] [address] PCP - General Internal Medicine 04/24/22 09/02/22 Krystal Dozier MD [address] [place] [address] PCP - General Internal Medicine 09/03/22 09/12/23 [facility], Pcp [address] [place] [address] PCP - General Internal Medicine 09/13/23 [facility] 08/13/22 Malvin clifford Pulmonology 08/13/22 documented as of this encounter
--- OUTSIDE RECORDS SUMMARY | 2025-01-07 15:07 | XMS_ITS | Encounter Summary ---
Author Organization [facility] Address [address] [place] [address] Care Team Providers Care Photogrammetric Technician Name Role Phone Darshana Leon MD Primary Care Provider Marj Arenas MD Primary Care Provider [phone] Krystal Dozier MD Primary Care Provider [phone] [facility], Pcp Primary Care Provider [facility] Encounter Details Date Type Department Care Team Description 03/31/2019 [facility] Medical Records [address] [place] [address] Abstract, Provider Social History Tobacco Use Types [...] on filedocumented in this encounter Care Teams Photogrammetric Technician Relationship Specialty Start Date End Date Darshana Leon MD PCP - General Internal Medicine 10/03/12 04/23/22 Marj Gonzales MD [address] [place] [address] PCP - General Internal Medicine 04/24/22 09/02/22 Krystal Dozier MD [address] [place] [address] PCP - General Internal Medicine 09/03/22 09/12/23 [facility], Pcp [address] [place] [address] PCP - General Internal Medicine 09/13/23 [facility] 08/13/22 Malvin clifford Pulmonology 08/13/22 documented as of this encounter
--- OUTSIDE RECORDS SUMMARY | 2025-01-07 15:07 | XMS_ITS | Encounter Summary ---
Author Organization [facility] Address [address] [place] [address] Care Team Providers Care Scutcher Tender Name Role Phone Darshana Leon MD Primary Care Provider Marj Arenas MD Primary Care Provider [phone] Krystal Dozier MD Primary Care Provider [facility], Pcp Primary Care Provider Unavailabl e Encounter Details Date Type Department Care Team Description 10/15/2014 Enterprise Data Architect Report Medical Records [address] [place] [address] Mariana Valenzuela MD Social History Tobacco Use [...] on filedocumented in this encounter Care Teams Scutcher Tender Relationship Specialty Start Date End Date Darshana Leon MD PCP - General Internal Medicine 10/03/12 04/23/22 Marj Gonzales MD [address] [place] [address] PCP - General Internal Medicine 04/24/22 09/02/22 Krystal Dozier MD [address] [place] [address] PCP - General Internal Medicine 09/03/22 09/12/23 [facility], Pcp [address] [place] [address] PCP - General Internal Medicine 09/13/23 [facility] 08/13/22 Malvin clifford Pulmonology 08/13/22 documented as of this encounter
--- OUTSIDE RECORDS SUMMARY | 2025-01-07 15:07 | XMS_ITS | Encounter Summary ---
Author Organization [facility] Address [address] [place] [address] Care Team Providers Care Route Service Representative Name Role Phone Darshana Leon MD Primary Care Provider Marj Arenas MD Primary Care Provider [phone] Krystal Dozier MD Primary Care Provider [facility], Pcp Primary [facility] Encounter Details Date Type Department Care Team Description 07/02/2019 Orders Only Medicine/Pediatrics - [address] [phone] Pih Stevens PA-C Social History Tobacco Use Types Packs/Day [...] on filedocumented in this encounter Care Teams Route Service Representative Relationship Specialty Start Date End Date Darshana Leon MD PCP - General Internal Medicine 10/03/12 04/23/22 Marj Gonzales MD [address] [place], [place] PCP - General Internal Medicine 04/24/22 09/02/22 Krystal Dozier MD [address] [place] [address] PCP - General Internal Medicine 09/03/22 09/12/23 [facility], Pcp [address] [place] [address] PCP - General Internal Medicine 09/13/23 [facility] 08/13/22 Malvin clifford Pulmonology 08/13/22 documented as of this encounter
--- OUTSIDE RECORDS SUMMARY | 2025-01-07 15:07 | XMS_ITS | Encounter Summary ---
Author Organization [facility] Address [address] [place] [address] Care Team Providers Care Administrative Processor Name Role Phone Darshana Leon MD Primary Care Provider Marj Arenas MD Primary Care Provider [phone] Krystal Dozier MD Primary Care Provider [phone] [facility], Pcp Primary Care Provider [facility] Encounter Details Date Type Department Care Team Description 12/17/2016 [facility] Medical Records [address] [place] [address] Abstract, Provider Social History Tobacco Use Types [...] on filedocumented in this encounter Care Teams Administrative Processor Relationship Specialty Start Date End Date Darshana Leon MD PCP - General Internal Medicine 10/03/12 04/23/22 Marj Gonzales MD [address] [place] [address] PCP - General Internal Medicine 04/24/22 09/02/22 Krystal Dozier MD [address] [place] [address] PCP - General Internal Medicine 09/03/22 09/12/23 Community, Pcp [address] [place] [address] PCP - General Internal Medicine 09/13/23 [facility] 08/13/22 Malvin clifford Pulmonology 08/13/22 documented as of this encounter
--- OUTSIDE RECORDS SUMMARY | 2025-01-07 15:07 | XMS_ITS | Encounter Summary ---
Author Organization [facility] Address [address] [place] [address] Care Team Providers Care Clothing Busheler Name Role Phone Darshana Leon MD Primary Care Provider Marj Arenas MD Primary Care Provider [phone] Krystal Dozier MD Primary Care Provider [facility], Pcp Primary Care Provider Unavailmult[facility]are health e Encounter Details Date Type Department Care Team Description 06/17/2017 [facility] Medical Records [address] [place] [address] Abstract, Provider Social History Tobacco Use Types [...] on filedocumented in this encounter Care Teams Clothing Busheler Relationship Specialty Start Date End Date Darshana Leon MD PCP - General Internal Medicine 10/03/12 04/23/22 Marj Gonzales MD [address] [place] [address] PCP - General Internal Medicine 04/24/22 09/02/22 Krystal Dozier MD [address] [place] [address] PCP - General Internal Medicine 09/03/22 09/12/23 Community, Pcp [address] [place] [address] PCP - General Internal Medicine 09/13/23 [facility] PSYCHOLOG[facility] 08/13/22 Malvin clifford Pulmonology 08/13/22 documented as of this encounter
--- OUTSIDE RECORDS SUMMARY | 2025-01-07 15:07 | XMS_ITS | Encounter Summary ---
Author Organization [facility] Address [address] [place] [address] Care Team Providers Care Plastic Mould Maker Name Role Phone Darshana Leon MD Primary Care Provider Marj Arenas MD Primary Care Provider [phone] Krystal Dozier MD Primary Care Provider [facility], Pcp Primary Care Provider Un[facility] health e Encounter Details Date Type Department Care Team Description 08/20/2016 [facility] Medical Records [address] [place] [address] Abstract, Provider Social History Tobacco Use Types [...] on filedocumented in this encounter Care Teams Plastic Mould Maker Relationship Specialty Start Date End Date Darshana Leon MD PCP - General Internal Medicine 10/03/12 04/23/22 Marj Gonzales MD [address] [place] [address] PCP - General Internal Medicine 04/24/22 09/02/22 Krystal Dozier MD [address] [place] [address] PCP - General Internal Medicine 09/03/22 09/12/23 Community, Pcp [address] [place] [address] PCP - General Internal Medicine 09/13/23 Zhen PSYCHOLOGY 08/13/22 Malvin clifford Pulmonology 08/13/22 documented as of this encounter
--- OUTSIDE RECORDS SUMMARY | 2025-01-07 15:07 | XMS_ITS | Encounter Summary ---
Author Organization [facility] Address [address] [place] [address] Care Team Providers Care Head Of Physics Name Role Phone Darshana Leon MD Primary Care Provider Marj Arenas MD Primary Care Provider [phone] Krystal Dozier MD Primary Care Provider [phone] [facility], Pcp Primary Care Provider Unavailabl e Encounter Details Date Type Department Care Team Description 11/09/2016 [facility] Medical Records [address] [place] [address] Abstract, Provider Social History Tobacco Use Types [...] on filedocumented in this encounter Care Teams Head Of Physics Relationship Specialty Start Date End Date Darshana Leon MD PCP - General Internal Medicine 10/03/12 04/23/22 Marj Gonzales MD [address] [place] [address] 16351 PCP - General Internal Medicine 04/24/22 09/02/22 Krystal Dozier MD [address] [place] [address] PCP - General Internal Medicine 09/03/22 09/12/23 Community, Pcp [address] [place] [address] PCP - General Internal Medicine 09/13/23 Zhen PSYCHOLOGY 08/13/22 Malvin clifford Pulmonology 08/13/22 documented as of this encounter
--- OUTSIDE RECORDS SUMMARY | 2025-01-07 15:07 | XMS_ITS | Encounter Summary ---
Author Organization [facility] Address [address] [place] [address] Care Team Providers Care Drum Stock Clerk Name Role Phone Darshana Leon MD Primary Care Provider Marj Arenas MD Primary Care Provider [phone] Krystal Dozier MD Primary [facility] Provider [facility], Pcp Primary Care Provider [facility] e Encounter Details Date Type Department Care Team Description 07/30/2014 Controlled Substance Plan Medical Records [address] [place] [address] Abstract, Provider Social History Tobacco Use Types [...] on filedocumented in this encounter Care Teams Drum Stock Clerk Relationship Specialty Start Date End Date Darshana Leon MD PCP - General Internal Medicine 10/03/12 04/23/22 Marj Gonzales MD [address] [place] [address] PCP - General Internal Medicine 04/24/22 09/02/22 Krystal Dozier MD [address] [place] [address] PCP - General Internal Medicine 09/03/22 09/12/23 Community, Pcp [address] [place] [address] PCP - General Internal Medicine 09/13/23 Zhen PSYCHOLOGY 08/13/22 Malvin clifford Pulmonology 08/13/22 documented as of this encounter
--- OUTSIDE RECORDS SUMMARY | 2025-01-07 15:08 | XMS_ITS | Encounter Summary ---
Author Organization [facility] Address [address] [place] [address] Care Team Providers Care Outside Sales Representative Insurance Name Role Phone Darshana Leon MD Primary Care Provider Marj Arenas MD Primary Care Provider [phone] Krystal Dozier MD Primary Care Provider [facility], Pcp Primary Care Provider [facility] Encounter Details Date Type Department Care Team Description 10/14/2012 Broom Bundler Report Medical Records [address] [place] [address] Vianey Hemphill Social History Tobacco Use Types Packs/Day Years [...] on filedocumented in this encounter Care Teams Outside Sales Representative Insurance Relationship Specialty Start Date End Date Darshana Leon MD PCP - General Internal Medicine 10/03/12 04/23/22 Marj Gonzales MD [address] [place] [address] PCP - General Internal Medicine 04/24/22 09/02/22 Krystal Dozier MD [address] [place] [address] PCP - General Internal Medicine 09/03/22 09/12/23 Community, Pcp [address] [place] [address] PCP - General Internal Medicine 09/13/23 Zhen PSYCHOLOGY 08/13/22 Malvin clifford Pulmonology 08/13/22 documented as of this encounter
--- OUTSIDE RECORDS SUMMARY | 2025-01-07 15:08 | XMS_ITS | Encounter Summary ---
Author Organization [facility] Address [address] [place] [address] Care Team Providers Care Web Design Specialist Name Role Phone Darshana Leon MD Primary Care Provider Marj Arenas MD Primary Care Provider [phone] Krystal Dozier MD Primary Care Provider [phone] [facility], Pcp Primary Care Provider [facility] Encounter Details Date Type Department Care Team Description 12/24/2017 [facility] Medical Records [address] [place] [address] Abstract, Provider Social History Tobacco Use Types [...] on filedocumented in this encounter Care Teams Web Design Specialist Relationship Specialty Start Date End Date Darshana Leon MD PCP - General Internal Medicine 10/03/12 04/23/22 Marj Gonzales MD [address] [place] [address] PCP - General Internal Medicine 04/24/22 09/02/22 Krystal Dozier MD [address] [place] [address] 97[address] PCP - General Internal Medicine 09/03/22 09/12/23 Community, Pcp [address] [place] [address] PCP - General Internal Medicine 09/13/23 Zhen PSYCHOLOGY 08/13/22 Malvin clifford Pulmonology 08/13/22 documented as of this encounter
--- OUTSIDE RECORDS SUMMARY | 2025-01-07 15:08 | XMS_ITS | Encounter Summary ---
Author Organization [facility] Address [address] [place] [address] Care Team Providers Care Sales Service Representative Name Role Phone Darshana Leon MD Primary Care Provider Marj Arenas MD Primary Care Provider [phone] Krystal Dozier MD Primary Care Provider [facility], Pcp Primary Care Provider Unavailabl e Encounter Details Date Type Department Care Team Description 05/11/2020 [facility] Medical Records [address] [place] [address] Abstract, Provider Social History Tobacco Use Types [...] on filedocumented in this encounter Care Teams Sales Service Representative Relationship Specialty Start Date End Date Darshana Leon MD PCP - General Internal Medicine 10/03/12 04/23/22 Marj Gonzales MD [address] [place] [address] PCP - General Internal Medicine 04/24/22 09/02/22 Krystal Dozier MD [address] [place] [address] 12543 PCP - General Internal Medicine 09/03/22 09/12/23 Community, Pcp [address] [place] [address] PCP - General Internal Medicine 09/13/23 Zhen PSYCHOLOGY 08/13/22 Malvin clifford Pulmonology 08/13/22 documented as of this encounter
--- OUTSIDE RECORDS SUMMARY | 2025-01-07 15:08 | XMS_ITS | Encounter Summary ---
Author Organization [facility] Address [address] [place] [address] Care Team Providers Care Cassandra Developer Name Role Phone Darshana Leon MD Primary Care Provider Marj Arenas MD Primary Care Provider [phone] Krystal Dozier MD Primary Care Provider [facility], Pcp Primary Care Provider [facility] e Encounter Details Date Type Department Care Team Description 01/15/2018 [facility] Controlled Substance Contract Medical Records [address] [place] [address] Abstract, Provider Social History Tobacco Use Types [...] on filedocumented in this encounter Care Teams Cassandra Developer Relationship Specialty Start Date End Date Darshana Leon MD PCP - General Internal Medicine 10/03/12 04/23/22 Marj Gonzales MD [address] [place] [address] 72776 PCP - General Internal Medicine 04/24/22 09/02/22 Krystal Dozier MD [address] [place] [address] PCP - General Internal Medicine 09/03/22 09/12/23 Community, Pcp [address] [place] [address] PCP - General Internal Medicine 09/13/23 Zhen PSYCHOLOGY 08/13/22 Malvin clifford Pulmonology 08/13/22 documented as of this encounter
--- OUTSIDE RECORDS SUMMARY | 2025-01-07 15:08 | XMS_ITS | Encounter Summary ---
Author Organization [facility] Address [address] [place] [address] Care Team Providers Care Supervisor Cigarette Making Department Name Role Phone Darshana Leon MD Primary Care Provider Marj Arenas MD Primary Care Provider [phone] Krystal Dozier MD Primary Care Provider [facility], Pcp Primary Care Provider Unavailabl e Encounter Details Date Type Department Care Team Description 12/08/2019 Release of Information Medical Records [address] [place] [address] Abstract, Provider Social History Tobacco Use Types [...] on filedocumented in this encounter Care Teams Supervisor Cigarette Making Department Relationship Specialty Start Date End Date Darshana Leon MD PCP - General Internal Medicine 10/03/12 04/23/22 Marj Gonzales MD [address] [place] [address] 31832 PCP - General Internal Medicine 04/24/22 09/02/22 Krystal Dozier MD [address] [place] [address] PCP - General Internal Medicine 09/03/22 09/12/23 Community, Pcp [address] [place] [address] PCP - General Internal Medicine 09/13/23 Zhen PSYCHOLOGY 08/13/22 Malvin clifford Pulmonology 08/13/22 documented as of this encounter
--- OUTSIDE RECORDS SUMMARY | 2025-01-07 15:08 | XMS_ITS | Encounter Summary ---
Author Organization [facility] Address [address] [place] [address] Care Team Providers Care Rotor Balancer Name Role Phone Darshana Leon MD Primary Care Provider Marj Arenas MD Primary Care Provider [phone] Krystal Dozier MD Primary Care Provider [phone] [facility], Pcp Primary Care Provider [facility] e Encounter Details Date Type Department Care Team Description 08/25/2019 [facility] Medical Records [address] [place] [address]27 Abstract, Provider Social History Tobacco Use Types [...] on filedocumented in this encounter Care Teams Rotor Balancer Relationship Specialty Start Date End Date Darshana Leon MD PCP - General Internal Medicine 10/03/12 04/23/22 Marj Gonzales MD [address] [place] [address] 99034 PCP - General Internal Medicine 04/24/22 09/02/22 Krystal Dozier MD [address] [place] [address] 68283 PCP - General Internal Medicine 09/03/22 09/12/23 Community, Pcp [address] [place] [address] PCP - General Internal Medicine 09/13/23 [facility] PSYCHOLOGY 08/13/22 Malvin clifford Pulmonology 08/13/22 documented as of this encounter
--- OUTSIDE RECORDS SUMMARY | 2025-01-07 15:08 | XMS_ITS | Encounter Summary ---
Author Organization [facility] Address [address] [place] [address] Care Team Providers Care Lining Printer Name Role Phone Darshana Leon MD Primary Care Provider Marj Arenas MD Primary Care Provider [phone] Krystal Dozier MD Primary Care Provider [facility], Pcp Primary Care Provider [facility] e Encounter Details Date Type Department Care Team Description 02/11/2013 Controlled Substance Contract with Plan Medical Records [address] [place] [address] Abstract, Provider Social History Tobacco Use Types [...] on filedocumented in this encounter Care Teams Lining Printer Relationship Specialty Start Date End Date Darshana Leon MD PCP - General Internal Medicine 10/03/12 04/23/22 Marj Gonzales MD [address] [place] [address] 45287 PCP - General Internal Medicine 04/24/22 09/02/22 Krystal Dozier MD [address] [place] [address] 80351 PCP - General Internal Medicine 09/03/22 09/12/23 Community, Pcp [address] [place] [address] PCP - General Internal Medicine 09/13/23 [facility]hen PSYCHOLOGY 08/13/22 Malvin clifford Pulmonology 08/13/22 documented as of this encounter
--- OUTSIDE RECORDS SUMMARY | 2025-01-07 15:08 | XMS_ITS | Encounter Summary ---
Author Organization [facility] Address [address] [place] [address] Care Team Providers Care Cabbage Salter Name Role Phone Darshana Leon MD Primary Care Provider Marj Arenas MD Primary Care Provider [phone] Krystal Dozier MD Primary Care Provider [facility], Pcp Primary Care Provider Unavailabl e Encounter Details Date Type Department Care Team Description 02/18/2013 Pantry Steward/Stewardess Report Medical Records [address] [place] [address] Mariana Valenzuela MD Social History Tobacco Use [...] on filedocumented in this encounter Care Teams Cabbage Salter Relationship Specialty Start Date End Date Darshana Leon MD PCP - General Internal Medicine 10/03/12 04/23/22 Marj Gonzales MD [address] [place] [address] PCP - General Internal Medicine 04/24/22 09/02/22 Krystal Dozier MD [address] [place] [address] PCP - General Internal Medicine 09/03/22 09/12/23 Community, Pcp [address] [place] [address] PCP - General Internal Medicine 09/13/23 [facility] PSYCHOLOG[facility] 08/13/22 Malvin clifford Pulmonology 08/13/22 documented as of this encounter
--- OUTSIDE RECORDS SUMMARY | 2025-01-07 15:08 | XMS_ITS | Encounter Summary ---
Author Organization [facility] Address [address] [place] [address] Care Team Providers Care Fuels Engineer Name Role Phone Darshana Leon MD Primary Care Provider Marj Arenas MD Primary Care Provider [phone] Krystal Dozier MD Primary Care Provider [facility], Pcp Primary Care Provider Unavailabl e Encounter Details Date Type Department Care Team Description 03/02/2020 [facility] Medical Records [address] [place] [address] Abstract, Provider Social History Tobacco Use Types [...] on filedocumented in this encounter Care Teams Fuels Engineer Relationship Specialty Start Date End Date Darshana Leon MD PCP - General Internal Medicine 10/03/12 04/23/22 Marj Gonzales MD [address] [place] [address]116 PCP - General Internal Medicine 04/24/22 09/02/22 Krystal Dozier MD [address] [place] [address]41 PCP - General Internal Medicine 09/03/22 09/12/23 Community, Pcp [address] [place] [address] PCP - General Internal Medicine 09/13/23 [facility]hen PSYCHOLOGY 08/13/22 Malvin clifford Pulmonology 08/13/22 documented as of this encounter
--- OUTSIDE RECORDS SUMMARY | 2025-01-07 15:08 | XMS_ITS | Encounter Summary ---
Author Organization [facility] Address [address] [place] [address] Care Team Providers Care Ibm Websphere Portal Developer Name Role Phone Marj Gonzales MD Primary Care Provider Krystal Dozier MD Primary Care Provider [facility], Pcp Primary Care Provider Unavailabl e Reason for Visit * Reason Onset Date Comments Medication 07/18/2022 pt requesting mary jane phelan nurse call her Encounter Details Date Type Department Care Team Description 07/18/2022 Telephone Adult Medicine [address] [address] Marj Gonzales MD [address] [place] [address] Medication (pt requesting triage nurse call her) Social History Tobacco Use Types Packs/Day Years [...] encounter Miscellaneous Notes * Telephone Encounter - Ralph Turner LPN - 07/20/2022 7:37 AM EDT No answer * Telephone Encounter - Ralph Turner LPN - 07/19/2022 7:32 AM EDT No answer * Telephone Encounter - Ralph Turner LPN - 07/18/2022 10:13 AM EDT Tried calling no answer * Telephone Encounter - Fern Alaniz M.A. - 07/18/2022 10:06 AM EDT Pt is requesting triage nurse call her * Telephone Encounter - Laura Ruth M.A. - 07/18/2022 9:50 AM EDT Blank encounter documented in this encounter Plan of Treatment Not on file documented as of this encounter Visit Diagnoses Not on filedocumented in this encounter Care Teams Ibm Websphere Portal Developer Relationship Specialty Start Date End Date Marj Gonzales MD [address] [place] [address] PCP - General Internal Medicine 04/24/22 09/02/22 Krystal Dozier MD [address] [place] [address]642 PCP - General Internal Medicine 09/03/22 09/12/23 [facility], [address] [address] PCP - General Internal Medicine 09/13/23 [facility] 08/13/22 Malvin clifford Pulmonology 08/13/22 documented as of this encounter
--- OUTSIDE RECORDS SUMMARY | 2025-01-07 15:08 | XMS_ITS | Encounter Summary ---
Author Organization [facility] Address [address] [place] [address] Care Team Providers Care Juvenile Justice Officer Name Role Phone Marj Gonzales MD Primary Care Provider [phone] Krystal Dozier MD Primary Care Provider [phone] [facility], Pcp Primary Care Provider Unavailabl e Reason for Visit * Reason Onset Date Comments Prior Authorization 06/29/2022 Encounter Details Date Type Department Care Team Description 06/29/2022 Telephone PHARMACY CLINIC [address] [place] [address] Mirta Yadav Pharm.D [address] [place] [address] Prior Authorization Social History Tobacco Use Types Packs/Day Years [...] encounter Miscellaneous Notes * Telephone Encounter - Pharm. MiltonD - 07/02/2022 8:02 AM EDT Ok thank you very much * Telephone Encounter - Marj Gonzales MD - 06/29/2022 5:02 PM EDT Pt has not established with me. I will not be renewing her opioids and pt will be tapered. Will not do a PA for controlled substance. * Telephone Encounter - Shyann Ford M.A. - 06/29/2022 4:07 PM EDT Unfortunately we are unable to do a prior authorization until the one in place has , becausewhen the insurance runs it through it will state it is covered. When the current one expires we then will be able to do a renewal or new p.a. for the medication. Thank you Please reply back to [id number] Prior Auth Pool Shyann Muir [facility] Prior Authorization Ext [id number] * Telephone Encounter - Pharm. MiltonD - 06/29/2022 9:05 AM EDT Hi PA team, This patient's percocet script PA will on 07/05. If possible could you call [phone] to complete the PA as online request won't go through rightnow because the pa is still valid. This way there is no laspe in the patient getting their medication. Thanks so much, Mirta documented in this encounter Plan of Treatment Not on file documented as of this encounter Visit Diagnoses Not on filedocumented in this encounter Care Teams Juvenile Justice Officer Relationship Specialty Start Date End Date Marj Gonzales MD [address] [place] [address] PCP - General Internal Medicine 04/24/22 09/02/22 Krystal Dozier MD [address] [place] [address] PCP - General Internal Medicine 09/03/22 09/12/23 [facility], [address] [address] PCP - General Internal Medicine 09/13/23 [facility] 08/13/22 Malvin clifford Pulmonology 08/13/22 documented as of this encounter
== END 2025-01-07 12:33 | disposition home or self-care (01) ==
LOC: HO.XRAY 12:32
PROVIDERS: PCP Internal Medicine; Visit Provider Registered Nurse Emergency
DX: M47.22 Other spondylosis with radiculopathy, cervical region (principal); M47.816 Spondylosis without myelopathy or radiculopathy, lumbar region
CPT/HCPCS: 72052; 72110

== ENCOUNTER → 2025-01-07 12:40 | Outpatient (BNV) | payer OTHER, SELFPAY | PROVIDERS: PCP Internal Medicine; Visit Provider Radiology Diagnostic Radiology | DX: M47.22 Other spondylosis with radiculopathy, cervical region (principal); M47.816 Spondylosis without myelopathy or radiculopathy, lumbar region | CPT/HCPCS: 72052; 72110 ==

== ENCOUNTER 2025-02-08 11:10 | Outpatient (AMB) | payer OTHER, SELFPAY ==
--- NOTE | 2025-02-08 11:15 | A.OFFPC_ITS ---
Vital Signs 02/08/25 11:19 Height 4 ft 10 in Weight 148 lb 8 oz BMI 31.0 BP 108/78 Blood Pressure Location Lt brachial Position Sitting Respiration 14 Pulse 86 Pulse Source Pulse Oximeter Pulse Oximetry (%) 98 Oxygen Delivery Method Room Air 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 Reasons: fu Intake Note: Follow up Program/Music Director Required: No Allergies iron Allergy (Severe, Verified 02/12/25 14:48) difficutly breathing prednisolone Allergy (Severe, Verified 02/12/25 14:48) difficulty breathing iodine Allergy (Mild, Verified 02/12/25 14:48) Hives meperidine [Demerol] Allergy (Mild, Verified 02/12/25 14:48) Difficulty Breathing Cortisone Allergy (Severe, Uncoded 02/08/25 11:18) Hives prednisolone-propyl Allergy (Unknown, Uncoded 02/08/25 11:18) difficutly breathing Tobacco use date assessed: 02/08/25 Dental Screening Dental Screen Date: 10/12/24 HPI HPI Comments History of Present Illness Details The patient is a 54 year old female with a past medical history of chronic back pain, neck pain, insomnia, asthma presenting for medication review Chronic pain: Transitioned from morphine to oxycodone ER. Less frequent nausea with the change MRI neck with cervical DDD-08/2023 diffuse disc desiccation, ostophytes, disc space narrowing. At C5-C6 ventral subarachnoid space effaced without cord compression. Has been seen previously at [facility]. Does not tolerate steroid injections (allergy). The patient has pain which originates in the posterior spine and radiates to the shoulder and up to the bilateral occiput and temporal areas. She has numbness/neuritis. Failed gabapentin and lyrica -due to intolerable side effects. Wanted to see neurology for consideration of botox injections but werent accepting. Recently started seeing Pain Management at [place]. She has not done well with steroid injections in the past. Recent lumbar MRI Neuropsych: Depression, insomnia. On mirtazapine, hydroxyzine, buspar, seroquel. Resp: Asthma. Allergy. Follows with Dr Chester. On albuterol prn, alternates breo/advair. On singulair, loratidine. Prone to sinus infection Cologuard was ordered Due for psych social worker Mammo 04/10/2024 ROS see HPI PHYSICAL EXAM: GENERAL: Alert and oriented x 3. NAD EYES: EOMI. Anicteric. HENT: Moist mucous membranes. No scleral icterus. No cervical lymphadenopathy. LUNGS: Clear to auscultation bilaterally. CARDIOVASCULAR: Regular rate and rhythm. No murmur. No JVD. ABDOMEN: Soft, non-tender +bs EXTREMITIES: No edema. Non-tender. SKIN: No rashes or lesions. Warm. NEUROLOGIC: No focal neurological deficits. CN II-XII grossly intact PSYCHIATRIC: Cooperative. Appropriate mood and affect [facility] Surgical History H/O tooth extraction Social History Housing: House Alcohol intake: never Patient Tobacco Use Status: Never used Tobacco e-Cigarette/Vaping Use: Never Used Second Hand Smoke Exposure: No service: No Current occupational status: disabled Cognitive needs: No Hearing needs: No Vision needs: No Questionnaire PHQ-9 Over the last 2 weeks, how often have you been bothered by any of the following problems? 6. Feeling bad about yourself - or that you are a failure or have let yourself or your family down: nearly every day 8. Moving or speaking so slowly that other people could have noticed. Or the opposite - being so fidgety or restless that you have been moving around a lot more than usual: not at all 9. Thoughts that you would be better off or of hurting yourself in some way: not at all Source: Developed by Drs. Atilio Owens, Shirley García, Jean Carlos Luz and colleagues, with an educational denise from [employer]. Thrive Questionnaire Date Thrive assessed: 11/09/24 I am a: Patient What is your living situation today?: I have a steady place to live Within the past 12 months, did the food you bought not last and you didn't have the money to get more?: Sometimes True Within the past 12 months, did you worry whether your food would run out before you got money to buy more?: I choose not to answer this question Do you have trouble paying for medicines?: I choose not to answer this question Do you have trouble getting transportation to medical appointments?: I choose not to answer this question Do you have trouble paying your heating and electricity bill?: I choose not to answer this question Do you have trouble taking care of your child, family member or friend?: I choose not to answer this question Do you have trouble with day-to-day activities such as bathing, preparing meals, shopping, managing finances, etc.?: I choose not to answer this question Are you currently unemployed and looking for a job?: I choose not to answer this question Are you interested in more education?: I choose not to answer this question Please select the resources that you would like help with: None Currently or been in a relationship where the following occur: I choose not to answer THRIVE Score: 1 VERONIQUE-7 AMB Questionnaire VERONIQUE-7 Date VERONIQUE - 7 assessed: 11/09/24 Source: Developed by Drs. Atilio Owens, Shirley García, Jean Carlos Luz and colleagues, with an educational denise from [employer]. Physical exam (Primary Care) Vital Signs: Last Vital Signs Pulse 86 02/08/25 11:19 Resp 14 02/08/25 11:19 BP 108/78 02/08/25 11:19 Pulse Ox 98 02/08/25 11:19 Oxygen Delivery Method Room Air 02/08/25 11:19 BMI result Body Mass Index 31.0 Tobacco/Smoking Status: Tobacco use Status Tobacco use date assessed 02/08/25 02/08/25 11:19 Patient Tobacco Use Status Never used Tobacco 02/08/25 11:24 e-Cigarette/Vaping Use Never Used 02/08/25 11:24 Thrive Assessment: Date of Thrive Assessment Date Thrive assessed 11/09/24 02/08/25 11:16 Currently or been in a relationship where the following occur: I choose not to answer Coding Level of Care Code Est Pt Level 4 (52067) Complex EM visit Add On G2211 Diagnoses Osteoarthritis of spine with radiculopathy, 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 Spinal osteoarthritis complication: with radiculopathy Lumbar spondylosis M47.816 Hematuria, unspecified type R31.9 Hematuria type: unspecified type Assessment & Plan Assessment & Plan (1) Cervical spine degeneration: Code(s): M47.812 - Spondylosis without myelopathy or radiculopathy, cervical region Category: Medical Qualifiers: Spinal osteoarthritis complication: with radiculopathy Qualified Code(s): M47.22 - Other spondylosis with radiculopathy, cervical region (2) Lumbar spondylosis: Code(s): M47.816 - Spondylosis without myelopathy or radiculopathy, lumbar region Category: Medical (3) Hematuria: Code(s): R31.9 - Hematuria, unspecified Category: Medical Qualifiers: Hematuria type: unspecified type Qualified Code(s): R31.9 - Hematuria, unspecified Plan 54 year old female for follow up Doing well with medication transition She does need some breathrough med for pain. Tramadol ordered Hematuria/dysuria. Macrobid ordered. UA/UCx Orders: Orders UA CC w/rflx Micro + Cult 02/08/25 R31.9 - Hematuria, unspecified Medications: New nitrofurantoin monohyd/m-cryst 100 mg (Macrobid) must administer with a meal/food 100 mg PO Q12H 7 days 14 caps 0RF tramadol partial fill upon patient request Okay for fill with oxycontin 50 - 100 mg (1 - 2 x 50 mg) PO DAILY PRN 60 tabs 0RF pain, mild M47.816 - Spondylosis without myelopathy or radiculopathy, lumbar region
[2025-02-08 11:19] VITALS: BP 108/78; PULSE 86; RESP 14; O2SAT 98; BMI 31.0
--- OUTSIDE RECORDS SUMMARY | 2025-02-08 13:22 | XMS_ITS | Encounter Summary ---
Author Organization [facility] Address [address] [place] [address] Care Team Providers Care Hospital Administrative Assistant Name Role Phone Darshana Leon MD Primary Care Provider Marj Arenas MD Primary Care Provider Krystal Dozier MD Primary Care Provider [phone] [facility], Pcp Primary Care Provider Unavailabl e Encounter Details Date Type Department Care Team Description 07/24/2018 Orders Only Medicine/Pediatrics - [address] [phone] Phi Stevens PA-C Elevated lipase (Primary Dx) [...] levels documented in this encounter Care Teams Hospital Administrative Assistant Relationship Specialty Start Date End Date Darshana Leon MD PCP - General Internal Medicine 10/03/12 04/23/22 Marj Gonzales MD [address] [place] [address] PCP - General Internal Medicine 04/24/22 09/02/22 Krystal Dozier MD [address] [place] [address] PCP - General Internal Medicine 09/03/22 09/12/23 [facility], [address] [address] PCP - General Internal Medicine 09/13/23 [facility] 08/13/22 Malvin clifford Pulmonology 08/13/22 documented as of this encounter
--- OUTSIDE RECORDS SUMMARY | 2025-02-08 13:22 | XMS_ITS | Encounter Summary ---
Author Organization [facility] Address [address] [place] [address] Care Team Providers Care Editorial Specialist Name Role Phone Darshana Leon MD Primary Care Provider Marj Arenas MD Primary Care Provider [phone] Krystal Dozier MD Primary Care Provider [phone] [facility], [facility], Pcp Primary Care Provider [facility] Encounter Details Date Type Department Care Team Description 08/08/2018 [facility] Medical Records [address] [place] [id number] Abstract, Provider Social History Tobacco Use Types [...] on filedocumented in this encounter Care Teams Editorial Specialist Relationship Specialty Start Date End Date Darshana Leon MD PCP - General Internal Medicine 10/03/12 04/23/22 Marj Gonzales MD [address] [place] [address] PCP - General Internal Medicine 04/24/22 09/02/22 Krystal Dozier MD [address] [place] [address] PCP - General Internal Medicine 09/03/22 09/12/23 [facility] Pcp [address] [place] [address] PCP - General Internal Medicine 09/13/23 [facility] 08/13/22 Malvin clifford Pulmonology 08/13/22 documented as of this encounter
--- OUTSIDE RECORDS SUMMARY | 2025-02-08 13:22 | XMS_ITS | Encounter Summary ---
Author Organization [facility] Address [address] [place] [address] Care Team Providers Care Transactional Attorney Name Role Phone Darshana Leon MD Primary Care Provider Marj Arenas MD Primary Care Provider [phone] Krystal Dozier MD Primary Care Provider [phone] [facility], Pcp Primary Care Provider Unavailabl e Reason for Visit * Reason Onset Date Comments APPOINTMENT 08/01/2016 physiatry Encounter Details Date Type Department Care Team Description 08/01/2016 Telephone Medicine/Pediatrics - [address] [phone] Darshana Leon MD APPOINTMENT (physiatry ) Social [...] separate message is being sent to the Crystal Gazer Tawanna García in [place] as well regarding the appointment scheduled today documented in this encounter Plan of Treatment Not on file documented as of this encounter Visit Diagnoses Not on filedocumented in this encounter Care Teams Transactional Attorney Relationship Specialty Start Date End Date Darshana Leon MD PCP - General Internal Medicine 10/03/12 04/23/22 Marj Gonzales MD [address] [place] [address] PCP - General Internal Medicine 04/24/22 09/02/22 Krystal Dozier MD [address] [place] [address] PCP - General Internal Medicine 09/03/22 09/12/23 Paulina Pandya [address] [place] [address] PCP - General Internal Medicine 09/13/23 [facility] 08/13/22 Malvin clifford Pulmonology 08/13/22 documented as of this encounter
--- OUTSIDE RECORDS SUMMARY | 2025-02-08 13:22 | XMS_ITS | Encounter Summary ---
Author Organization [facility] Address [address] [place] [address] Care Team Providers Care Butadiene Convertor Operator Name Role Phone Darshana Leon MD Primary Care Provider Marj Arenas MD Primary Care Provider [phone] Krystal Dozier MD Primary Care Provider [phone] [facility], Pcp Primary Care Provider [facility] Encounter Details Date Type Department Care Team Description 02/28/2018 Telephone Medicine/Pediatrics - [address] [phone] Darshana Leon MD Social History Tobacco Use [...] on filedocumented in this encounter Care Teams Butadiene Convertor Operator Relationship Specialty Start Date End Date Darshana Leon MD PCP - General Internal Medicine 10/03/12 04/23/22 Marj Gonzales MD [address] [place] [address] PCP - General Internal Medicine 04/24/22 09/02/22 Krystal Dozier MD [address] [place], [place] [phone] PCP - General Internal Medicine 09/03/22 09/12/23 Paulina Pandya [address] [place] [address] PCP - General Internal Medicine 09/13/23 [facility] 08/13/22 Malvin clifford Pulmonology 08/13/22 documented as of this encounter
--- OUTSIDE RECORDS SUMMARY | 2025-02-08 13:22 | XMS_ITS | Encounter Summary ---
Author Organization [facility] Address [address] [place] [address] Care Team Providers Care Inventory Checker Name Role Phone Darshana Leon MD Primary Care Provider Marj Arenas MD Primary Care Provider [phone] Krystal Dozier MD Primary Care Provider [phone] [facility], Pcp Primary Care Provider Unavailabl e Reason for Visit * Reason Onset Date Comments Medication 07/22/2020 Encounter Details Date Type Department Care Team Description 07/22/2020 Telephone Medicine/Pediatrics - [address] [phone] Darshana Leon MD Medication Social History Tobacco Use Types Packs/Day Years [...] encounter Miscellaneous Notes * Telephone Encounter - Darshana Leon MD - 07/27/2020 8:52 AM EDT Will need to update contract. * Telephone Encounter - Fern Davila M.A. - 07/26/2020 3:30 PM EDT Rx Placed in Pt pick remover. * Telephone Encounter - Juan [place] MD - 07/26/2020 1:00 PM EDT [facility] report reviewed today for Meredith Armijo Last time script filled was 06/21/2020. Script printed for pick remover FYI Dr. Leon * Telephone Encounter - Alea HopsonPCathyN. - 07/26/2020 12:20 PM EDT Pt want to change her pharm to [facility] please sign rx pt will come to [facility] to pick remover * Telephone Encounter - Alea HopsonP.N. - 07/26/2020 10:49 AM EDT Message left on to call office at [phone] Which dosage does she need * Telephone Encounter - Jyoti Yang - 07/26/2020 10:39 AM EDT Pt calling in states her Pa was approved but not the Pharm [facility] on [facility] Is out of the Medication . Pt states they are always running out they told her they arent sure when medication Would be back in stock and advised pt to call MD's office and have a new script written for [facility] location Please cb and advise. [phone] Patient states shes in a lot of pain and would like to have this done GAIL * Telephone Encounter - Alea HopsonP.N. - 07/22/2020 4:50 PM EDT Pt notified as written below She states she is having an ins. issue about her morphine It was not clear what she was talking about We have nothing to do with the ins * Telephone Encounter - Darshana Leon MD - 07/22/2020 4:50 PM EDT Not that I have seen but I haven't been in the office since . This telemedicine isn't good. It is hard to address things like this. I was going to come in anyway today but my daughter was sick. * Telephone Encounter - Alea Vines L.P.N. - 07/22/2020 4:48 PM EDT She states a form was faxed to you with a list of meds she can take for pain Did you get that? She is wondering what they can gib=bve her * Telephone Encounter - Darshana Leon MD - 07/22/2020 4:46 PM EDT Have her take 2 of the 30 mg extended release and 3 of the short acting tomorrow and Saturday. . * Telephone Encounter - Alea Vines L.P.N. - 07/22/2020 4:42 PM EDT She is having liposuction done She is having the procedure on Saturday she she can not taper Please advise * Telephone Encounter - Darshana Leon MD - 07/22/2020 4:39 PM EDT What procedure is she having done? It would be good to taper. Would go down to 30 bid of the XR andone twice a day of the short acting. She can taper down to that for the week prior. Once I know what she is having done can give further instructions if a change from the above. * Telephone Encounter - Jessica Hollins M.A. - 07/22/2020 4:[address] Leon please see below * Telephone Encounter - Sindy Mendoza - 07/22/2020 4:29 PM EDT Patient is having a procedure done and she was advised to call her pcp to see if she should holdingoff on her morphine prior to the procedure. documented in this encounter Plan of Treatment Not on file documented as of this encounter Visit Diagnoses Diagnosis Chronic pain syndrome Spinal stenosis of cervical region Spinal stenosis in cervical region documented in this encounter Care Teams Inventory Checker Relationship Specialty Start Date End Date Darshana Leon MD PCP - General Internal Medicine 10/03/12 04/23/22 Marj Gonzales MD [address] [place] [address] PCP - General Internal Medicine 04/24/22 09/02/22 Krystal Dozier MD [address] [place] [address] PCP - General Internal Medicine 09/03/22 09/12/[address] [address] PCP - General Internal Medicine 09/13/23 [facility] 08/13/22 Malvin clifford Pulmonology 08/13/22 documented as of this encounter
--- OUTSIDE RECORDS SUMMARY | 2025-02-08 13:22 | XMS_ITS | Encounter Summary ---
Author Organization [facility] Address [address] [place] [address] Care Team Providers Care Textile Knitter Name Role Phone Krystal Dozier MD Primary Care Provider [phone] [facility], Pcp Primary Care Provider Unavailabl e Encounter Details Date Type Department Care Team Description 10/17/2022 [facility] Medical Records [address] [place] [address] Abstract, Provider Social History Tobacco Use Types [...] on filedocumented in this encounter Care Teams Textile Knitter Relationship Specialty Start Date End Date Krystal Dozier MD [address] [place] [address] PCP - General Internal Medicine 09/03/22 09/12/23 [facility], Pcp [address] [place] [address] PCP - General Internal Medicine 09/13/23 [facility] 08/13/22 Malvin clifford Pulmonology 08/13/22 documented as of this encounter
--- OUTSIDE RECORDS SUMMARY | 2025-02-08 13:22 | XMS_ITS | Encounter Summary ---
Author Organization [facility] Address [address] [place] [address] Care Team Providers Care Rn Lpn Cna Name Role Phone Darshana Leon MD Primary Care Provider Marj Arenas MD Primary Care Provider Krystal Dozier MD Primary Care Provider [facility], Pcp Primary Care Provider Unavailabl e Reason for Referral * Non MIKE (Routine) - Authorized/Booked Specialty Diagnoses / Procedures Referred By Contac t Referred To Contact Physical Therapy Procedures REFERRAL TO PHYSICAL THERAPY Darshana Leon MD [address] [place] [address] External Phys Thrpy Referral ID Status Reason Start Date Expiration Date V isits Requested Visits Authorized ORDER FAXED Authorized/B ooked 07/06/2016 10/05/2016 1 1 Reason for Visit * Reason Onset Date Comments Extension Clerk Feedback 07/05/2016 Encounter Details Date Type Department Care Team Description 07/05/2016 Telephone Medicine/Pediatrics - [address] [phone] Darshana Leon MD Extension Clerk Feedback Social History Tobacco Use Types Packs/Day Years [...] encounter Miscellaneous Notes * Telephone Encounter - Beverley Marshall - 07/05/2016 10:15 AM EDT No insurance referral required per patient's insurance. * Telephone Encounter - Beverley Marshall - 07/05/2016 10:14 AM EDT Please review this patients new referral request. The referral has been pended. Please complete thefollowing: If approved> sign order If denied>please give instructions and route to your practice nursing pool. Practice nurse should inform referrals and the patient if denied. * Telephone Encounter - Carolann Ashley - 07/05/2016 10:01 AM EDT What insurance does the patient have today? Hne be healthy Effective 08/04/09: [employer] will not retro referral requests over 90 days. If request is for this please instruct patient to call the 800# on their insurance card to appeal. Do not submit a request. Referrals cannot be processed if the insurance is not accurate. If the insurance listed above in red is NO BILLING INFORMATION FOUND FOR THIS ENCOUTNER The patients correct insurance must be obtained and registered in [facility] or their referral can not be processed. Is this a retro request? NO. If yes for what date of service do you need the retro referral? N/A Who is calling to request this referral? patient If the caller is not the patient, what is their name? N/A Ask the patient WHO referred them to this specialty: Patient spoke to Darshana Leon and was toldthey would order a referral to this specialty FIRST and LAST NAME of SPECIALIST PATIENT is seeing: What specialty is this? PT DIAGNOSIS Patient is being seen for (Not a body part or a procedure): Chronic Pain Syndrome/Spinal Stenosis of Lumbar Region Have you seen this SPECIALIST for this PROBLEM/DX before?NO If YES, when: Have you checked REVIEW or the APPT DESK to see if this referral has already been done or has visits left? YES Is this visit:Initial Visit Address of Specialist:[address] [place] [address] Phone # of Specialist:[phone] Fax #: (if applicable):[phone] Does patient have an appointment scheduled?: NO Date of appointment- (including a retro-request): awaiting referral Is this appointment related to: Not MVA, WC or Surgery related documented in this encounter Plan of Treatment Not on file documented as of this encounter Visit Diagnoses Not on filedocumented in this encounter Care Teams Rn Lpn Cna Relationship Specialty Start Date End Date Darshana Leon MD PCP - General Internal Medicine 10/03/12 04/23/22 Marj Gonzales MD [address] [place] [address] PCP - General Internal Medicine 04/24/22 09/02/22 Krystal Dozier MD [address] [place] [address] PCP - General Internal Medicine 09/03/22 09/12/23 [facility], [address] [address] PCP - General Internal Medicine 09/13/23 [facility] 08/13/22 Malvin clifford Pulmonology 08/13/22 documented as of this encounter
--- OUTSIDE RECORDS SUMMARY | 2025-02-08 13:22 | XMS_ITS | Encounter Summary ---
Author Organization [facility] Address [address] [place] [address] Care Team Providers Care Bookkeeping Clerk Name Role Phone Darshana Leon MD Primary Care Provider Marj Arenas MD Primary Care Provider [phone] Krystal Dozier MD Primary Care Provider [phone] [facility], Pcp Primary Care Provider Unavailabl e Encounter Details Date Type Department Care Team Description 09/10/2016 Release of Information Medical Records [address] [place] [id number] Abstract, Provider Social History Tobacco Use Types [...] on filedocumented in this encounter Care Teams Bookkeeping Clerk Relationship Specialty Start Date End Date Darshana Leon MD PCP - General Internal Medicine 10/03/12 04/23/22 Marj Gonzales MD [address] [place] [address] PCP - General Internal Medicine 04/24/22 09/02/22 Krystal Dozier MD [address] [place] [address] PCP - General Internal Medicine 09/03/22 09/12/23 [facility] Pcp [address] [place] [address] PCP - General Internal Medicine 09/13/23 [facility] 08/13/22 Malvin clifford Pulmonology 08/13/22 documented as of this encounter
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
--- OUTSIDE RECORDS SUMMARY | 2025-02-08 13:23 | XMS_ITS | Encounter Summary ---
Author Organization [facility] Address [address] [place] [address] Care Team Providers Care Heading Up Machine Operator Name Role Phone Darshana Leon MD Primary Care Provider Marj Arenas MD Primary Care Provider [phone] Krystal Dozier MD Primary Care Provider [phone] [facility], Pcp Primary Care Provider [facility] Encounter Details Date Type Department Care Team Description 05/17/2017 PNO Controlled Substance Contract Medical Records [address] [place] [address] Abstract, Provider Social History Tobacco Use Types [...] on filedocumented in this encounter Care Teams Heading Up Machine Operator Relationship Specialty Start Date End Date Darshana Leon MD PCP - General Internal Medicine 10/03/12 04/23/22 Marj Gonzales MD [address] [place] [address] PCP - General Internal Medicine 04/24/22 09/02/22 Krystal Dozier MD [address] [place] [address] PCP - General Internal Medicine 09/03/22 09/12/23 [facility], Pcp [address] [place] [address] PCP - General Internal Medicine 09/13/23 [facility] 08/13/22 Malvin clifford Pulmonology 08/13/22 documented as of this encounter
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
--- OUTSIDE RECORDS SUMMARY | 2025-02-08 13:23 | XMS_ITS | Encounter Summary ---
Author Organization [facility] Address [address] [place] [address] Care Team Providers Care Brass And Wind Instrument Repairer Name Role Phone Darshana Leon MD Primary Care Provider Marj Arenas MD Primary Care Provider [phone] Krystal Dozier MD Primary Care Provider [phone] [facility], Pcp Primary Care Provider [facility] Reason for Visit * Reason Onset Date Comments Provider Call Back 09/15/2013 Encounter Details Date Type Department Care Team Description 09/15/2013 Telephone Physiatry - [address] [address] Janeth Louis PA-C Provider Call Back Social [...] Her appointment is scheduled for this at [address] [place] [address] in [place]. . Also she wants to know if you can prescribe something stronger for her back pain she is still in a great deal of pain, and still is waking up stiff. documented in this encounter Plan of Treatment Not on file documented as of this encounter Visit Diagnoses Not on filedocumented in this encounter Care Teams Brass And Wind Instrument Repairer Relationship Specialty Start Date End Date Darshana Leon MD PCP - General Internal Medicine 10/03/12 04/23/22 Marj Gonzales MD [address] [place] [address] PCP - General Internal Medicine 04/24/22 09/02/22 Krystal Dozier MD [address] [place] [address] PCP - General Internal Medicine 09/03/22 09/12/23 [facility], Pcp [address] [place] [address] PCP - General Internal Medicine 09/13/23 [facility] 08/13/22 Malvin clifford Pulmonology 08/13/22 documented as of this encounter
--- OUTSIDE RECORDS SUMMARY | 2025-02-08 13:23 | XMS_ITS | Encounter Summary ---
Author Organization [facility] Address [address] [place] [address] Care Team Providers Care Launch Manager Name Role Phone Darshana Leon MD Primary Care Provider Marj Arenas MD Primary Care Provider Krystal Dozier MD Primary Care Provider [phone] [facility], Pcp [facility] Reason for Visit * Reason Onset Date Comments Prior Authorization 10/19/2020 Encounter Details Date Type Department Care Team Description 10/19/2020 Telephone Medicine/Pediatrics - [address] [phone] Darshana Leon MD Prior Authorization Social History Tobacco Use Types [...] encounter Miscellaneous Notes * Telephone Encounter - Rosy Story M.A. - 11/01/2020 3:54 PM EST Contacted [facility] to check status of prior authorizaton for Omeprazole 20mg BID. This has been approved from 10/20/2020-10/20/2021. Auth # [id number]. [facility] notified. * Telephone Encounter - Rosy Story M.A. - 10/19/2020 1:46 PM EST Dx:Refractory GERD Prior authorization done on [facility] form for Omeprazole 20mg BID. * Telephone Encounter - Jyoti Yang - 10/19/2020 9:44 AM EST Prior Authorization for Medication-do not complete and send this encounter unless you have the fax from the pharmacy. Is this a Cover My Meds request: [place] of Medication OMEPRAZOLE Dose of Medication 20MG What is the RX # from the faxed refill? [id number] How does patient take this med? BY MOUTH What Pharmacy did the fax come from: [facility] Pharmacy fax #: [phone] [employer] Information from fax: What Prescription Plan does the patient have? . BIN/PCN if applicable: Cardholder ID:[id number] Person Code: Relationship Code: Help desk phone: documented in this encounter Plan of Treatment Not on file documented as of this encounter Visit Diagnoses Not on filedocumented in this encounter Care Teams Launch Manager Relationship Specialty Start Date End Date Darshana Leon MD PCP - General Internal Medicine 10/03/12 04/23/22 Marj Gonzales MD [address] [place] [address] PCP - General Internal Medicine 04/24/22 09/02/22 Krystal Dozier MD [address] [place] [address] PCP - General Internal Medicine 09/03/22 09/12/23 Paulina Pandya [address] [place] [address] PCP - General Internal Medicine 09/13/23 [facility] 08/13/22 Malvin clifford Pulmonology 08/13/22 documented as of this encounter
--- OUTSIDE RECORDS SUMMARY | 2025-02-08 13:23 | XMS_ITS | Encounter Summary ---
Author Organization [facility] Address [address] [place] [address] Care Team Providers Care Fee Clerk Name Role Phone Darshana Leon MD Primary Care Provider Marj Arenas MD Primary Care Provider [phone] Krystal Dozier MD Primary Care Provider [facility], Pcp Primary Care Provider Unavailabl e Encounter Details Date Type Department Care Team Description 12/31/2012 Finger Buff Sewer Report Medical Records [address] [place] [address] Mariana Valenzuela MD Social History Tobacco Use [...] on filedocumented in this encounter Care Teams Fee Clerk Relationship Specialty Start Date End Date Darshana Leon MD PCP - General Internal Medicine 10/03/12 04/23/22 Marj Gonzales MD [address] [place] [address] PCP - General Internal Medicine 04/24/22 09/02/22 Krystal Dozier MD [address] [place] [address] PCP - General Internal Medicine 09/03/22 09/12/23 [facility], Pcp [address] [place] [address] PCP - General Internal Medicine 09/13/23 [facility] 08/13/22 Malvin clifford Pulmonology 08/13/22 documented as of this encounter
--- OUTSIDE RECORDS SUMMARY | 2025-02-08 13:23 | XMS_ITS | Encounter Summary ---
Author Organization [facility] Address [address] [place] [address] Care Team Providers Care Manager Cosmetics Name Role Phone Darshana Leon MD Primary Care Provider Marj Arenas MD Primary Care Provider [phone] Krystal Dozier MD Primary Care Provider [phone] [facility], Pcp Primary Care Provider Unavailabl e Encounter Details Date Type Department Care Team Description 08/26/2017 Release of Information Medical Records [address] [place] [address] Abstract, Provider Social History Tobacco Use Types [...] filedocumented in this encounter Care Teams Manager Cosmetics Relationship Specialty Start Date End Date Darshana Leon MD PCP - General Internal Medicine 10/03/12 04/23/22 Marj Gonzales MD [address] [place] [address] PCP - General Internal Medicine 04/24/22 09/02/22 Krystal Dozier MD [address] [place] [address] PCP - General Internal Medicine 09/03/22 09/12/23 [facility], Pcp [address] [place] [address] PCP - General Internal Medicine 09/13/23 [facility] 08/13/22 Malvin clifford Pulmonology 08/13/22 documented as of this encounter
--- OUTSIDE RECORDS SUMMARY | 2025-02-08 13:23 | XMS_ITS | Encounter Summary ---
Author Organization [facility] Address [address] [place] [address] Care Team Providers Care Shingle Shearing Machine Operator Name Role Phone Darshana Leon MD Primary Care Provider Marj Arenas MD Primary Care Provider [phone] Krystal Dozier MD Primary Care Provider [facility], Pcp Primary Care Provider Unavailabl e Encounter Details Date Type Department Care Team Description 01/22/2014 Controlled Substance Plan Medical Records [address] [place] [address] Abstract, Provider Social History Tobacco Use Types [...] on filedocumented in this encounter Care Teams Shingle Shearing Machine Operator Relationship Specialty Start Date End Date Darshana Leon MD PCP - General Internal Medicine 10/03/12 04/23/22 Marj Gonzales MD [address] [place] [address] PCP - General Internal Medicine 04/24/22 09/02/22 Krystal Dozier MD [address] [place] [address] PCP - General Internal Medicine 09/03/22 09/12/23 [facility], Pcp [address] [place] [address] PCP - General Internal Medicine 09/13/23 [facility] 08/13/22 Malvin clifford Pulmonology 08/13/22 documented as of this encounter
--- OUTSIDE RECORDS SUMMARY | 2025-02-08 13:23 | XMS_ITS | Encounter Summary ---
Author Organization [facility] Address [address] [place] [address] Care Team Providers Care Web Applications Programmer Name Role Phone Darshana Leon MD Primary Care Provider Marj Arenas MD Primary Care Provider [phone] Krystal Dozier MD Primary Care Provider [facility], Pcp Primary Care Provider [facility] Encounter Details Date Type Department Care Team Description 05/20/2019 [facility] Medical Records [address] [place] [address] Abstract, Provider Social History Tobacco Use Types [...] filedocumented in this encounter Care Teams Web Applications Programmer Relationship Specialty Start Date End Date Darshana Leon MD PCP - General Internal Medicine 10/03/12 04/23/22 Marj Gonzales MD [address] [place] [address] PCP - General Internal Medicine 04/24/22 09/02/22 Krystal Dozier MD [address] [place] [address] PCP - General Internal Medicine 09/03/22 09/12/23 [facility], Pcp [address] [place] [address] PCP - General Internal Medicine 09/13/23 [facility] 08/13/22 Malvin clifford Pulmonology 08/13/22 documented as of this encounter
--- OUTSIDE RECORDS SUMMARY | 2025-02-08 13:23 | XMS_ITS | Encounter Summary ---
Author Organization [facility] Address [address] [place] [address] Care Team Providers Care Jig Bore Operator Name Role Phone Darshana Leon MD Primary Care Provider Marj Arenas MD Primary Care Provider [phone] Krystal Dozier MD Primary Care Provider [phone] [facility], Pcp Primary Care Provider Unavailabl e Reason for Visit * Reason Onset Date Comments Provider Call Back 10/15/2014 Encounter Details Date Type Department Care Team Description 10/15/2014 Telephone Medicine/Pediatrics - [address] [phone] Darshana Leon MD Provider Call Back Social [...] [place] as she could not go to [facility] with her insurance For colonoscopy She now has new Insurance and does not want to have the colonoscopy done at [facility] , prefers [facility] or [facility] appt was cancelled per patient Will have [...] for call back: Patient has appointment at [facility] for a colonoscopy, it is set up for . She states she does NOT want to go to [place], she wants to get it done at [facility] instead. She is looking to see if we can place a referral order for [facility] instead, please advise Caller offered to speak with the nurse for assistance: YES Response: Patient offered to speak with nurse for assistance and patient agreed. Message forwarded to nurse. documented in this encounter Plan of Treatment Not on file documented as of this encounter Visit Diagnoses Not on filedocumented in this encounter Care Teams Jig Bore Operator Relationship Specialty Start Date End Date Darshana Leon MD PCP - General Internal Medicine 10/03/12 04/23/22 Marj Gonzales MD [address] [place] [address] PCP - General Internal Medicine 04/24/22 09/02/22 Krystal Dozier MD [address] [place] [address] PCP - General Internal Medicine 09/03/22 09/12/23 [facility], [address] [address] PCP - General Internal Medicine 09/13/23 [facility] 08/13/22 Malvin clifford Pulmonology 08/13/22 documented as of this encounter
--- OUTSIDE RECORDS SUMMARY | 2025-02-08 13:23 | XMS_ITS | Encounter Summary ---
Author Organization [facility] Address [address] [place] [address] Care Team Providers Care Caterer'S Aide Name Role Phone Darhsana Leon MD Primary Care Provider Marj Arenas MD Primary Care Provider Krystal Dozier MD Primary Care Provider [phone] [facility], Pcp Primary Care Provider Unavailabl e Encounter Details Date Type Department Care Team Description 08/05/2015 Orders Only Medicine/Pediatrics - [address] [phone] Darshana Leon MD Abdominal pain, left lower [...] - 20 mm/hr 08/27/2015 1:35 PM EDT [facility] 08/27/2015 11:1 8 AM EDT 08/27/2015 11:19 AM EDT Darshana Leon MD LAB [address] [place] * (ABNORMAL) COMPREHENSIVE METABOLIC PANEL (08/27/2015 11:18 AM EDT) GLUCOSE 75 70 - 100 mg/dL 08/27/2015 1:00 PM [facility] Comment: Reference range applicable to fasting specimens only Based on recommendations from the ADA and AACE, the fasting glucose reference range has been changed to 70-100 mg/dL. ??This change is effective March 20, 2010 BUN 16 5 - 25 mg/dL 08/27/2015 1:00 PM [facility] CREAT 0.6(L) 0.7 - 1.5 mg/dL 08/27/2015 1:00 PM [facility] BUN/CREAT RATIO 26.7(H) 6.0 - 20.0 08/27/2015 1:00 PM [facility] GFR > 60 >60 08/27/2015 1:17 PM [facility] Comment: If patient is -[place]une[place], multiply result by 1.21 Chronic Kidney Disease: < 60 ml/min/1.73 square meters Kidney Failure: < 15 ml/min/1.73 square meters Sodium 142 133 - 145 mEq/L 08/27/2015 1:00 PM [facility] Potassium 4.2 3.5 - 5.5 mEq/L 08/27/2015 1:00 PM [facility] Chloride 104 96 - 108 mEq/L 08/27/2015 1:00 PM [facility] CO2 27.6 21.0 - 32.0 mEq/L 08/27/2015 1:00 PM [facility] CALCIUM 9.7 8.5 - 10.5 mg/dL 08/27/2015 1:00 PM [facility] TOTAL PROTEIN 7.0 6.0 - 8.3 gm/dL 08/27/2015 1:00 PM [facility] Albumin 4.4 3.2 - 5.6 gm/dL 08/27/2015 1:00 PM [facility] GLOBULIN 2.6 1.9 - 4.4 gm/dL 08/27/2015 1:[address] [facility] A/G RATIO 1.7 1.1 - 2.3 08/27/2015 1:[address] [facility] BILI,TOTAL 0.3 0.0 - 1.2 mg/dL 08/27/2015 1:[address] [facility] AST (SGOT) 25 10 - 42 U/L 08/27/2015 1:[address] [facility] ALT( SGPT) 28 10 - 60 U/L 08/27/2015 1:[address] [facility] ALK PHOS 68 42 - 121 U/L 08/27/2015 1:00 PM EDT [facility] 08/27/2015 11:1 8 AM EDT 08/27/2015 11:19 AM EDT Darshana Leon MD LAB Performing Organization Address City/State/[facility] de Phone Number [facility] [address] [facility] * (ABNORMAL) CBC (AUTO DIFF PLATELET) (08/27/2015 11:18 AM EDT) WBC 6.1 4.8 - 10.8 x10-3 08/27/2015 11:[address] [facility] RBC 4.5 3.8 - 4.8 x10-6 08/27/2015 11:43 AM EDT [facility] HGB 10.6(L) 11.5 - 16.0 g/dl 08/27/2015 11:[address] [facility] HCT 34.5(L) 35 - 47 % 08/27/2015 11:[address] [facility] MCV 76.7(L) 79 - 98 fl 08/27/2015 11:[address] [facility] MCH 23.6(L) 27 - 32 pg 08/27/2015 11:[address] [facility] MCHC 30.7(L) 32 - 37 g/dl 08/27/2015 11:[address] [facility] RDW 15.7(H) 11 - 15 [...] Darshana Leon MD LAB Performing Organization Address [facility] de Phone Number [address] * TSH (08/27/2015 11:18 AM EDT) TSH 3.08 0.40 - 4.00 mIU/ml 08/27/2015 1:00 PM EDT [facility] 08/27/2015 11:1 8 AM EDT 08/27/2015 11:19 AM EDT Darshana Leon MD LAB Performing Organization Address [facility] de Phone Number [address] documented in this encounter Visit Diagnoses Diagnosis Abdominal pain, left lower quadrant- 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
--- OUTSIDE RECORDS SUMMARY | 2025-02-08 13:23 | XMS_ITS | Encounter Summary ---
Author Organization [facility] Address [address] [place] [address] Care Team Providers Care Sole Stainer Name Role Phone Darshana Leon MD Primary Care Provider Marj Arenas MD Primary Care Provider [phone] Krystal Dozier MD Primary Care Provider [phone] [facility], Pcp Primary Care Provider Unavailabl e Encounter Details Date Type Department Care Team Description 03/23/2014 Transfer Records Medical Records [address] [place] [address] Abstract, Provider Social History Tobacco Use Types [...] on filedocumented in this encounter Care Teams Sole Stainer Relationship Specialty Start Date End Date Darshana Leon MD PCP - General Internal Medicine 10/03/12 04/23/22 Marj Gonzales MD [address] [place] [address] PCP - General Internal Medicine 04/24/22 09/02/22 Krystal Dozier MD [address] [place] [address] PCP - General Internal Medicine 09/03/22 09/12/23 Community, Pcp [address] [place] [address] PCP - General Internal Medicine 09/13/23 [facility] 08/13/22 [facility] clifford Pulmonology 08/13/22 documented as of this encounter
--- OUTSIDE RECORDS SUMMARY | 2025-02-08 13:23 | XMS_ITS | Encounter Summary ---
Author Organization [facility] Address [address] [place] [address] Care Team Providers Care Petroleum Geologist Name Role Phone Darshana Leon MD Primary Care Provider Marj Arenas MD Primary Care Provider [phone] Krystal Dozier MD Primary Care Provider [facility], Pcp Primary Care Provider [facility] e Encounter Details Date Type Department Care Team Description 10/21/2014 Billing Representative Report Medical Records [address] [place] [address] Javid Orellana MD Social History Tobacco Use [...] on filedocumented in this encounter Care Teams Petroleum Geologist Relationship Specialty Start Date End Date Darshana Leon MD PCP - General Internal Medicine 10/03/12 04/23/22 Marj Gonzales MD [address] [place] [address] PCP - General Internal Medicine 04/24/22 09/02/22 Krystal Dozier MD [address] [place] [address] PCP - General Internal Medicine 09/03/22 09/12/23 Community, [facility] [address] [place] [address] PCP - General Internal Medicine 09/13/23 [facility] PSYCH[facility] 08/13/22 Malvin clifford Pulmonology 08/13/22 documented as of this encounter
--- OUTSIDE RECORDS SUMMARY | 2025-02-08 13:23 | XMS_ITS | Encounter Summary ---
Author Organization [facility] Address [address] [place] [address] Care Team Providers Care Digital Strategy Director Name Role Phone Darshana Leon MD Primary Care Provider Marj Arenas MD Primary Care Provider Krystal Dozier MD Primary Care Provider [phone] [facility], Pcp Primary Care Provider Unavailabl e Reason for Referral * EXTERNAL (Routine) - Closed Specialty Diagnoses / Procedures Referred By Contasael t Referred To Contact Physiatry Procedures REFERRAL TO PHYSIATRY Aileen Parker MD [address] [place] [address] [place] [address] [facility] [address] [place] [address] Referral ID Status Reason Start Date Expiration Date V isits Requested Visits Authorized SEE REVIEW ON 11/20/2016 Closed 11/14/2016 1 1 Reason for Visit * Reason Onset Date Comments Medical Records 11/08/2016 Encounter Details Date Type Department Care Team Description 11/08/2016 Telephone Physiatry - [place] [address] [place] [address] Aileen Parker MD [address] [place] [address] Dr LUIS M [place] [id number] Medical Records Social History Tobacco Use Types [...] a message to call Dept back at [phone] * Telephone Encounter - Aileen Parker MD [...] or back. I therefore recommend referral to [facility] for either spinal cord stimulator or radiofrequencyablation (both of which do not need steroid). Cc to PCP also. documented in this encounter Plan of Treatment Not on file documented as of this encounter Visit Diagnoses Not on filedocumented in this encounter Care Teams Digital Strategy Director Relationship Specialty Start Date End Date Darshana Leon MD PCP - General Internal Medicine 10/03/12 04/23/22 Marj Gonzales MD [address] [place] [address] PCP - General Internal Medicine 04/24/22 09/02/22 Krystal Dozier MD [address] [place] [address] PCP - General Internal Medicine 09/03/22 09/12/23 [facility], [address] [address] PCP - General Internal Medicine 09/13/23 [facility] 08/13/22 Malvin clifford Pulmonology 08/13/22 documented as of this encounter
--- OUTSIDE RECORDS SUMMARY | 2025-02-08 13:23 | XMS_ITS | Encounter Summary ---
Author Organization [facility] Address [address] [place] [address] Care Team Providers Care Plant Cytologist Name Role Phone Darshana Leon MD Primary Care Provider Marj Arenas MD Primary Care Provider [phone] Krystal Dozier MD Primary Care Provider [facility], Pcp Primary Care Provider [facility] Encounter Details Date Type Department Care Team Description 08/19/2017 [facility] Medical Records [address] [place] [address] Abstract, Provider Social History Tobacco Use Types [...] on filedocumented in this encounter Care Teams Plant Cytologist Relationship Specialty Start Date End Date Darshana Leon MD PCP - General Internal Medicine 10/03/12 04/23/22 Marj Gonzales MD [address] [place] [address] PCP - General Internal Medicine 04/24/22 09/02/22 Krystal Dozier MD [address] [place] [address] PCP - General Internal Medicine 09/03/22 09/12/23 Community, Pcp [address] [place] [address] PCP - General Internal Medicine 09/13/23 [facility] PSYCH[facility] 08/13/22 Malvin clifford Pulmonology 08/13/22 documented as of this encounter
--- OUTSIDE RECORDS SUMMARY | 2025-02-08 13:23 | XMS_ITS | Encounter Summary ---
Author Organization [facility] Address [address] [place] [address] Care Team Providers Care Spreader Box Operator Name Role Phone Darshana Leon MD Primary Care Provider Marj Arenas MD Primary Care Provider Krystal Dozier MD Primary Care Provider [facility], Pcp Primary Care Provider Unavailabl e Reason for Visit * Reason Onset Date Comments Special Procedure 01/09/2021 Encounter Details Date Type Department Care Team Description 01/09/2021 Telephone Gastroenterology - [place] [address] [place] [id number] Rene Phelps MD [address] [place] [address] Special Procedure Social History Tobacco Use Types Packs/Day Years [...] Miscellaneous Notes * Telephone Encounter - Jeanine Fortune - 01/09/2021 3:44 PM EST Left message for patient to call and schedule her colon, she will need an internal referral when scheduled, thank you documented in this encounter Plan of Treatment Not on file documented as of this encounter Visit Diagnoses Not on filedocumented in this encounter Care Teams Spreader Box Operator Relationship Specialty Start Date End Date Darshana Leon MD PCP - General Internal Medicine 10/03/12 04/23/22 Marj Gonzales MD [address] [place] [address] PCP - General Internal Medicine 04/24/22 09/02/22 Krystal Dozier MD [address] [place] [address] PCP - General Internal Medicine 09/03/22 09/12/23 [facility], [address] [address] PCP - General Internal Medicine 09/13/23 [facility] 08/13/22 Malvin clifford Pulmonology 08/13/22 documented as of this encounter
--- OUTSIDE RECORDS SUMMARY | 2025-02-08 13:23 | XMS_ITS | Encounter Summary ---
Author Organization [facility] Address [address] [place] [address] Care Team Providers Care Sports Team Marketing Intern Name Role Phone Darshana Leon MD Primary Care Provider Marj Arenas MD Primary Care Provider [phone] Krystal Dozier MD Primary Care Provider [facility], Pcp Primary Care Provider Unavailabl e Encounter Details Date Type Department Care Team Description 04/21/2019 Motor Coach Chauffeur Report Medical Records [address] [place] [address] Christopher Laird MD Social History Tobacco Use Types Packs/Day [...] on filedocumented in this encounter Care Teams Sports Team Marketing Intern Relationship Specialty Start Date End Date Darshana Leon MD PCP - General Internal Medicine 10/03/12 04/23/22 Marj Gonzales MD [address] [place] [address] PCP - General Internal Medicine 04/24/22 09/02/22 Krystal Dozier MD [address] [place] [address] PCP - General Internal Medicine 09/03/22 09/12/23 Community, [facility] [address] [place] [address] PCP - General Internal Medicine 09/13/23 [facility]YCH[facility] 08/13/22 Malvin clifford Pulmonology 08/13/22 documented as of this encounter
--- OUTSIDE RECORDS SUMMARY | 2025-02-08 13:23 | XMS_ITS | Encounter Summary ---
Author Organization [facility] Address [address] [place] [address] Care Team Providers Care Operations Vocational Instructor Name Role Phone [place], Provider Primary Care Provider [phone] Darshana Leon MD Primary Care Provider Unava Marj Fraga MD Primary Care Provider Krystal Dozier MD Primary Care Provider [facility] Primary Care Provider Unavailabl e Encounter Details Date Type Department Care Team Description 05/20/2000 Telephone OBGYN - [place] [address] [place] [address] Social History Tobacco Use Types Packs/Day Years Used Date Smoking Tobacco: Never Assessed Sex Assigned at Date Recorded Not on file Job Start Date Occupation Industry Not on file Not on file Not on file documented as of this encounter Plan of Treatment Not on file documented as of this encounter Visit Diagnoses Not on filedocumented in this encounter Care Teams Operations Vocational Instructor Relationship Specialty Start Date End Date [place], Provider [address] [place] [address] PCP - General 03/04/00 10/02/12 Darshana Leon MD [address] [place] [address] PCP - General Internal Medicine 10/03/12 04/23/22 Marj Gonzales MD [address] [place] [address] PCP - General Internal Medicine 04/24/22 09/02/22 Dozier, Vidur S, [place] [address] PCP - General Internal Medicine 09/03/22 09/12/23 [facility], Pcp [facility] [place] [address] PCP - General Internal Medicine 09/13/23 [facility] 08/13/22 Malvin clifford Pulmonology 08/13/22 documented as of this encounter
--- OUTSIDE RECORDS SUMMARY | 2025-02-08 13:23 | XMS_ITS | Encounter Summary ---
Author Organization [facility] Address [address] [place] [address] Care Team Providers Care Vegetable Farm Worker Name Role Phone Darshana Leon MD Primary Care Provider Marj Arenas MD Primary Care Provider [phone] Krystal Dozier MD Primary Care Provider [facility], Pcp Primary Care Provider [facility] e Encounter Details Date Type Department Care Team Description 12/17/[address] [facility] Medical Records [address] [place] [address] Abstract, Provider Social History Tobacco Use Types [...] on filedocumented in this encounter Care Teams Vegetable Farm Worker Relationship Specialty Start Date End Date Darshana Leon MD PCP - General Internal Medicine 10/03/12 04/23/22 Marj Gonzales MD [address] [place] [address] PCP - General Internal Medicine 04/24/22 09/02/22 Krystal Dozier MD [address] [place] [address] PCP - General Internal Medicine 09/03/22 09/12/23 [facility], Pcp [address] [place] [address] PCP - General Internal Medicine 09/13/23 [facility] PSYCHOLOG[facility] 08/13/22 Malvin clifford Pulmonology 08/13/22 documented as of this encounter
--- OUTSIDE RECORDS SUMMARY | 2025-02-08 13:23 | XMS_ITS | Encounter Summary ---
Author Organization [facility] Address [address] [place] [address] Care Team Providers Care Inspector Receiving Name Role Phone Darshana Leon MD Primary Care Provider Marj Arenas MD Primary Care Provider [phone] Krystal Dozier MD Primary Care Provider [phone] [facility], Pcp Primary Care Provider Unavailabl e Encounter Details Date Type Department Care Team Description 01/25/2016 Release of Information Medical Records [address] [place] [address] Abstract, Provider Social History Tobacco Use Types [...] on filedocumented in this encounter Care Teams Inspector Receiving Relationship Specialty Start Date End Date Darshana Leon MD PCP - General Internal Medicine 10/03/12 04/23/22 Marj Gonzales MD [address] [place] [address] PCP - General Internal Medicine 04/24/22 09/02/22 Krystal Dozier MD [address] [place] [address] PCP - General Internal Medicine 09/03/22 09/12/23 Community, Pcp [address] [place] [address] PCP - General Internal Medicine 09/13/23 [facility] PSYCH[facility] 08/13/22 Malvin clifford Pulmonology 08/13/22 documented as of this encounter
--- OUTSIDE RECORDS SUMMARY | 2025-02-08 13:23 | XMS_ITS | Encounter Summary ---
Author Organization [facility] Address [address] [place] [address] Care Team Providers Care Bullet Assembly Press Setter Operator Name Role Phone Darshana Leon MD Primary Care Provider Marj Arenas MD Primary Care Provider [phone] Krystal Dozier MD Primary Care Provider [facility], Pcp Primary Care Provider Unavailabl e Encounter Details Date Type Department Care Team Description 12/16/2013 Brass Cutter Report Medical Records [address] [place] [address] Mariana Valenzuela MD Social History Tobacco Use [...] on filedocumented in this encounter Care Teams Bullet Assembly Press Setter Operator Relationship Specialty Start Date End Date Darshana Leon MD PCP - General Internal Medicine 10/03/12 04/23/22 Marj Gonzales MD [address] [place] [address] PCP - General Internal Medicine 04/24/22 09/02/22 Krystal Dozier MD [address] [place] [address] PCP - General Internal Medicine 09/03/22 09/12/23 Community, Pcp [address] [place] [address] PCP - General Internal Medicine 09/13/23 [facility] PSYCH[facility] 08/13/22 Malvin clifford Pulmonology 08/13/22 documented as of this encounter
--- OUTSIDE RECORDS SUMMARY | 2025-02-08 13:23 | XMS_ITS | Encounter Summary ---
Author Organization [facility] Address [address] [place] [address] Care Team Providers Care Toe Stapler Name Role Phone Darshana Leon MD Primary Care Provider Marj Arenas MD Primary Care Provider [phone] Krystal Dozier MD Primary Care Provider [facility], Pcp Primary Care Provider Unavailabl e Encounter Details Date Type Department Care Team Description 09/11/2018 Planer Setup Operator Report Medical Records [address] [place] [address] Sri Yo NP Social History Tobacco Use [...] on filedocumented in this encounter Care Teams Toe Stapler Relationship Specialty Start Date End Date Darshana Leon MD PCP - General Internal Medicine 10/03/12 04/23/22 Marj Gonzales MD [address] [place] [address] PCP - General Internal Medicine 04/24/22 09/02/22 Krystal Dozier MD [address] [place] [address] PCP - General Internal Medicine 09/03/22 09/12/23 Community, Pcp [address] [place] [address] PCP - General Internal Medicine 09/13/23 [facility] PSYCHOLOG[facility] 08/13/22 Malvin clifford Pulmonology 08/13/22 documented as of this encounter
--- OUTSIDE RECORDS SUMMARY | 2025-02-08 13:23 | XMS_ITS | Encounter Summary ---
Author Organization [facility] Address [address] [place] [address] Care Team Providers Care Automatic Punch Press Operator Name Role Phone Darshana Leon MD Primary Care Provider Marj Arenas MD Primary Care Provider [phone] Krystal Dozier MD Primary Care Provider [phone] [facility], Pcp Primary Care Provider Unavailabl e Encounter Details Date Type Department Care Team Description 12/07/2016 Release of Information Medical Records [address] [place] [address] Abstract, Provider Social History Tobacco Use Types [...] on filedocumented in this encounter Care Teams Automatic Punch Press Operator Relationship Specialty Start Date End Date Darshana Leon MD PCP - General Internal Medicine 10/03/12 04/23/22 Marj Gonzales MD [address] [place] [address] PCP - General Internal Medicine 04/24/22 09/02/22 Krystal Dozier MD [address] [place] [address] PCP - General Internal Medicine 09/03/22 09/12/23 Community, Pcp [address] [place] [address] PCP - General Internal Medicine 09/13/23 [facility] PSYCHOLOG[facility] 08/13/22 Malvin clifford Pulmonology 08/13/22 documented as of this encounter
--- OUTSIDE RECORDS SUMMARY | 2025-02-08 13:23 | XMS_ITS | Encounter Summary ---
Author Organization [facility] Address [address] [place] [address] Care Team Providers Care Trade Specialist Name Role Phone Darshana Leon MD Primary Care Provider Marj Arenas MD Primary Care Provider [phone] Krystal Dozier MD Primary Care Provider [facility], Pcp Primary Care Provider Unavailabl e Encounter Details Date Type Department Care Team Description 04/21/2014 Copper Flotation Operator Report Medical Records [address] [place] [address] Mariana Valenzuela MD Social History Tobacco Use [...] on filedocumented in this encounter Care Teams Trade Specialist Relationship Specialty Start Date End Date Darshana Leon MD PCP - General Internal Medicine 10/03/12 04/23/22 Marj Gonzales MD [address] [place] [address] PCP - General Internal Medicine 04/24/22 09/02/22 Krystal Dozier MD [address] [place] [address] PCP - General Internal Medicine 09/03/22 09/12/23 Community, Pcp [address] [place] [address] PCP - General Internal Medicine 09/13/23 [facility] PSYCHOLOG[facility] 08/13/22 Malvin clifford Pulmonology 08/13/22 documented as of this encounter
--- OUTSIDE RECORDS SUMMARY | 2025-02-08 13:23 | XMS_ITS | Encounter Summary ---
Author Organization [facility] Address [address] [place] [address] Care Team Providers Care Melting Operator Name Role Phone Darshana Leon MD Primary Care Provider Marj Arenas MD Primary Care Provider [phone] Krystal Dozier MD Primary Care Provider [facility], Pcp Primary Care Provider [facility] Encounter Details Date Type Department Care Team Description 07/30/2014 Controlled Substance Plan Medical Records [address] [place] [address] Abstract, Provider Social History Tobacco Use Types [...] on filedocumented in this encounter Care Teams Melting Operator Relationship Specialty Start Date End Date Darshana Leon MD PCP - General Internal Medicine 10/03/12 04/23/22 Marj Gonzales MD [address] [place] [address] PCP - General Internal Medicine 04/24/22 09/02/22 Krystal Dozier MD [address] [place] [address] PCP - General Internal Medicine 09/03/22 09/12/23 Community, Pcp [address] [place] [address] PCP - General Internal Medicine 09/13/23 [facility] PSYCHOLOG[facility] 08/13/22 Malvin clifford Pulmonology 08/13/22 documented as of this encounter
--- OUTSIDE RECORDS SUMMARY | 2025-02-08 13:23 | XMS_ITS | Encounter Summary ---
Author Organization [facility] Address [address] [place] [address] Care Team Providers Care Gifted Program Teacher Name Role Phone Darshana Leon MD Primary Care Provider Marj Arenas MD Primary Care Provider [phone] Krystal Dozier MD Primary Care Provider [phone] [facility], Pcp Primary Care Provider Unavailabl e Encounter Details Date Type Department Care Team Description 11/09/2016 Transfer Records Medical Records [address] [place] [address] Abstract, Provider Social History Tobacco Use Types [...] on filedocumented in this encounter Care Teams Gifted Program Teacher Relationship Specialty Start Date End Date Darshana Leon MD PCP - General Internal Medicine 10/03/12 04/23/22 Marj Gonzales MD [address] [place] [address] PCP - General Internal Medicine 04/24/22 09/02/22 Krystal Dozier MD [address] [place] [address] PCP - General Internal Medicine 09/03/22 09/12/23 Community, Pcp [address] [place] [address] PCP - General Internal Medicine 09/13/23 [facility] PSYCHOLOGY 08/13/22 Malvin clifford Pulmonology 08/13/22 documented as of this encounter
--- OUTSIDE RECORDS SUMMARY | 2025-02-08 13:23 | XMS_ITS | Encounter Summary ---
Author Organization [facility] Address [address] [place] [address] Care Team Providers Care Grading Supervisor Name Role Phone Darshana Leon MD Primary Care Provider Marj Arenas MD Primary Care Provider [phone] Krystal Dozier MD Primary Care Provider [facility], Pcp Primary Care Provider Unavailabl e Encounter Details Date Type Department Care Team Description 10/15/2014 Underwriting Analyst Report Medical Records [address] [place] [address] Mariana Valenzuela MD Social History Tobacco Use [...] on filedocumented in this encounter Care Teams Grading Supervisor Relationship Specialty Start Date End Date Darshana Leon MD PCP - General Internal Medicine 10/03/12 04/23/22 Marj Gonzales MD [address] [place] [address] PCP - General Internal Medicine 04/24/22 09/02/22 Krystal Dozier MD [address] [place] [address] PCP - General Internal Medicine 09/03/22 09/12/23 Community, Pcp [address] [place] [address] PCP - General Internal Medicine 09/13/23 [facility] PSYCHOLOGY 08/13/22 Malvin clifford Pulmonology 08/13/22 documented as of this encounter
--- OUTSIDE RECORDS SUMMARY | 2025-02-08 13:23 | XMS_ITS | Encounter Summary ---
Author Organization [facility] Address [address] [place] [address] Care Team Providers Care Lining Setter Name Role Phone Darshana Leon MD Primary Care Provider Marj Arenas MD Primary Care Provider [phone] Krystal Dozier MD Primary Care Provider [phone] [facility], Pcp Primary Care Provider [facility] Encounter Details Date Type Department Care Team Description 06/17/2017 [facility] Medical Records [address] [place] [address] Abstract, Provider Social History Tobacco Use Types [...] filedocumented in this encounter Care Teams Lining Setter Relationship Specialty Start Date End Date Darshana Leon MD PCP - General Internal Medicine 10/03/12 04/23/22 Marj Gonzales MD [address] [place] [address] PCP - General Internal Medicine 04/24/22 09/02/22 Krystal Dozier MD [address] [place] [address] PCP - General Internal Medicine 09/03/22 09/12/23 Community, Pcp [address] [place] [address] PCP - General Internal Medicine 09/13/23 Zhen PSYCHOLOGY 08/13/22 Malvin clifford Pulmonology 08/13/22 documented as of this encounter
--- OUTSIDE RECORDS SUMMARY | 2025-02-08 13:23 | XMS_ITS | Encounter Summary ---
Author Organization [facility] Address [address] [place] [address] Care Team Providers Care Specialist Managers Name Role Phone Darshana Leon MD Primary Care Provider Marj Arenas MD Primary Care Provider [phone] Krystal Dozier MD Primary Care Provider [phone] [facility], Pcp Primary Care Provider [facility] e Encounter Details Date Type Department Care Team Description 05/01/2017 [facility] Controlled Substance Contract Medical Records [address] [place] [address] Abstract, Provider Social History Tobacco Use Types [...] on filedocumented in this encounter Care Teams Specialist Managers Relationship Specialty Start Date End Date Darshana Leon MD PCP - General Internal Medicine 10/03/12 04/23/22 Marj Gonzales MD [address] [place] [address] PCP - General Internal Medicine 04/24/22 09/02/22 Krystal Dozier MD [address] [place] [address] PCP - General Internal Medicine 09/03/22 09/12/23 Community, Pcp [address] [place] [address] PCP - General Internal Medicine 09/13/23 Zhen PSYCHOLOGY 08/13/22 Malvin clifford Pulmonology 08/13/22 documented as of this encounter
--- OUTSIDE RECORDS SUMMARY | 2025-02-08 13:23 | XMS_ITS | Encounter Summary ---
Author Organization [facility] Address [address] [place] [address] Care Team Providers Care Dish Cloth Inspector Name Role Phone Darshana Leon MD Primary Care Provider Marj Arenas MD Primary Care Provider [phone] Krystal Dozier MD Primary Care Provider [phone] [facility], Pcp Primary Care Provider Unavailabl e Encounter Details Date Type Department Care Team Description 11/23/2014 HUMAN RESOURCES ASSISTANT/[facility] Report Medical Records [address] [place] [address] Abstract, Provider Social History Tobacco Use Types [...] on filedocumented in this encounter Care Teams Dish Cloth Inspector Relationship Specialty Start Date End Date Darshana Leon MD PCP - General Internal Medicine 10/03/12 04/23/22 Marj Gonzales MD [address] [place] [address] PCP - General Internal Medicine 04/24/22 09/02/22 Krystal Dozier MD [address] [place] [address] PCP - General Internal Medicine 09/03/22 09/12/23 Community, [facility] [address] [place] [address] PCP - General Internal Medicine 09/13/23 [facility] 08/13/22 Malvin clifford Pulmonology 08/13/22 documented as of this encounter
--- OUTSIDE RECORDS SUMMARY | 2025-02-08 13:23 | XMS_ITS | Encounter Summary ---
Author Organization [facility] Address [address] [place] [address] Care Team Providers Care Sales Engineer Name Role Phone Darshana Leon MD Primary Care Provider Marj Arenas MD Primary Care Provider [phone] Krystal Dozier MD Primary Care Provider [facility], Pcp Primary Care Provider Unavailabl e Encounter Details Date Type Department Care Team Description 02/01/2017 Release of Information Medical Records [address] [place] [address] Abstract, Provider Social History Tobacco Use Types [...] filedocumented in this encounter Care Teams Sales Engineer Relationship Specialty Start Date End Date Darshana Leon MD PCP - General Internal Medicine 10/03/12 04/23/22 Marj Gonzales MD [address] [place] [address] PCP - General Internal Medicine 04/24/22 09/02/22 Krystal Dozier MD [address] [place] [address] PCP - General Internal Medicine 09/03/22 09/12/23 Community, Pcp [address] [place] [address] PCP - General Internal Medicine 09/13/23 [facility] PSYCH[facility] 08/13/22 Malvin clifford Pulmonology 08/13/22 documented as of this encounter
--- OUTSIDE RECORDS SUMMARY | 2025-02-08 13:23 | XMS_ITS | Encounter Summary ---
Author Organization [facility] Address [address] [place] [address] Care Team Providers Care Real Estate Executive Assistant Name Role Phone Darshana Leon MD Primary Care Provider Marj Arenas MD Primary Care Provider [phone] Krystal Dozier MD Primary Care Provider [facility], Pcp Primary Care Provider [facility] e Encounter Details Date Type Department Care Team Description 07/07/2014 Hospital Medical Records [address] [place] [address] Cherelle Hebert MD Social History Tobacco Use Types Packs/Day [...] on filedocumented in this encounter Care Teams Real Estate Executive Assistant Relationship Specialty Start Date End Date Darshana Leon MD PCP - General Internal Medicine 10/03/12 04/23/22 Marj Gonzales MD [address] [place] [address] PCP - General Internal Medicine 04/24/22 09/02/22 Krystal Dozier MD [address] [place] [address] PCP - General Internal Medicine 09/03/22 09/12/23 Community, Pcp [address] [place] [address] PCP - General Internal Medicine 09/13/23 [facility] PSYCHOLOG[facility] 08/13/22 Malvin clifford Pulmonology 08/13/22 documented as of this encounter
--- OUTSIDE RECORDS SUMMARY | 2025-02-08 13:23 | XMS_ITS | Encounter Summary ---
Author Organization [facility] Address [address] [place] [address] Care Team Providers Care Equipment Operating Engineer Name Role Phone Darshana Leon MD Primary Care Provider Marj Arenas MD Primary Care Provider [phone] Krystal Dozier MD Primary Care Provider [phone] [facility], Pcp Primary Care Provider Unavailabl e Reason for Visit * Reason Onset Date Comments refill request 06/16/2021 Encounter Details Date Type Department Care Team Description 06/16/2021 Refill Medicine/Pediatrics - [address] [phone] Darshana Leon MD refill request Social History Tobacco Use Types Packs/Day Years Used Date Smoking Tobacco: Never Smokeless Tobacco: Never Alcohol Use Standard Drinks/Week Comments No 0 (1 standard drink = 0.6 oz pur e alcohol) Sex Assigned at Date Recorded Not on file Job Start Date Occupation Industry Not on file Not on file Not on file COVID-19 Exposure Response Date Recorded In the last month, have you been in contact with someone who was confirmed or suspected to have Coronavirus / COVID-19? No / Unsure 06/16/2021 2:29 PM EDT documented as of this encounter Miscellaneous Notes * Telephone Encounter - Sindy Lopez - 06/16/2021 10:00 AM EDT Patient has an appt today with Dr Leon documented in this encounter Plan of Treatment Not on file documented as of this encounter Visit Diagnoses Diagnosis Chronic pain syndrome Spinal stenosis of cervical region Spinal stenosis in cervical region documented in this encounter Care Teams Equipment Operating Engineer Relationship Specialty Start Date End Date Darshana Leon MD PCP - General Internal Medicine 10/03/12 04/23/22 Marj Gonzales MD [address] [place] [address] PCP - General Internal Medicine 04/24/22 09/02/22 Krystal Dozier MD [address] [place] [address] PCP - General Internal Medicine 09/03/22 09/12/23 [facility], [address] [address] PCP - General Internal Medicine 09/13/23 [facility] 08/13/22 Malvin clifford Pulmonology 08/13/22 documented as of this encounter
--- OUTSIDE RECORDS SUMMARY | 2025-02-08 13:24 | XMS_ITS | Encounter Summary ---
Author Organization [facility] Address [address] [place] [address] Care Team Providers Care Mechanical Assembler Name Role Phone Darshana Leon MD Primary Care Provider Marj Arenas MD Primary Care Provider [phone] Krystal Dozier MD Primary Care Provider [facility], Pcp Primary Care Provider [facility] e Encounter Details Date Type Department Care Team Description 01/24/2018 [facility] Medical Records [address] [place] [address] Abstract, Provider Social History Tobacco Use Types [...] on filedocumented in this encounter Care Teams Mechanical Assembler Relationship Specialty Start Date End Date Darshana Leon MD PCP - General Internal Medicine 10/03/12 04/23/22 Marj Gonzales MD [address] [place] [address] PCP - General Internal Medicine 04/24/22 09/02/22 Krystal Dozier MD [address] [place] [address] PCP - General Internal Medicine 09/03/22 09/12/23 Community, Pcp [address] [place] [address] PCP - General Internal Medicine 09/13/23 [facility] PSYCHOLOG[facility] 08/13/22 Malvin clifford Pulmonology 08/13/22 documented as of this encounter
--- OUTSIDE RECORDS SUMMARY | 2025-02-08 13:24 | XMS_ITS | Encounter Summary ---
Author Organization [facility] Address [address] [place] [address] Care Team Providers Care Home Energy Consultant Name Role Phone Darshana Leon MD Primary Care Provider Marj Arenas MD Primary Care Provider [phone] Krystal Dozier MD Primary Care Provider [facility], Pcp Primary Care Provider Unavailabl e Encounter Details Date Type Department Care Team Description 03/02/2020 [facility] Medical Records [address] [place] [address] Abstract, Provider Social History Tobacco Use Types [...] on filedocumented in this encounter Care Teams Home Energy Consultant Relationship Specialty Start Date End Date Darshana Leon MD PCP - General Internal Medicine 10/03/12 04/23/22 Marj Gonzales MD [address] [place] [address] PCP - General Internal Medicine 04/24/22 09/02/22 Krystal Dozier MD [address] [place] [address] PCP - General Internal Medicine 09/03/22 09/12/23 Community, Pcp [address] [place] [address] PCP - General Internal Medicine 09/13/23 [facility] PSYCHOLOG[facility] 08/13/22 Malvin clifford Pulmonology 08/13/22 documented as of this encounter
--- OUTSIDE RECORDS SUMMARY | 2025-02-08 13:24 | XMS_ITS | Encounter Summary ---
Author Organization [facility] Address [address] [place] [address] Care Team Providers Care Ceramist Name Role Phone Darshana Leon MD Primary Care Provider Marj Arenas MD Primary Care Provider [phone] Krystal Dozier MD Primary Care Provider [phone] [facility], Pcp Primary Care Provider [facility] health e Encounter Details Date Type Department Care Team Description 01/15/2018 [facility] Controlled Substance Contract Medical Records [address] [place] [address] Abstract, Provider Social History Tobacco Use Types [...] on filedocumented in this encounter Care Teams Ceramist Relationship Specialty Start Date End Date Darshana Leon MD PCP - General Internal Medicine 10/03/12 04/23/22 Marj Gonzales MD [address] [place] [address] PCP - General Internal Medicine 04/24/22 09/02/22 Krystal Dozier MD [address] [place] [address] PCP - General Internal Medicine 09/03/22 09/12/23 Community, Pcp [address] [place] [address] PCP - General Internal Medicine 09/13/23 [facility] PSYCH[facility] 08/13/22 Malvin clifford Pulmonology 08/13/22 documented as of this encounter
--- OUTSIDE RECORDS SUMMARY | 2025-02-08 13:24 | XMS_ITS | Encounter Summary ---
Author Organization [facility] Address [address] [place] [address] Care Team Providers Care Distributor Cleaner Name Role Phone Darshana Leon MD Primary Care Provider Marj Arenas MD Primary Care Provider [phone] Krystal Dozier MD Primary Care Provider [facility], Pcp Primary Care Provider [facility] Encounter Details Date Type Department Care Team Description 09/28/2019 [facility] Medical Records [address] [place] [address] Abstract, Provider Social History Tobacco Use Types [...] on filedocumented in this encounter Care Teams Distributor Cleaner Relationship Specialty Start Date End Date Darshana Leon MD PCP - General Internal Medicine 10/03/12 04/23/22 Marj Gonzales MD [address] [place] [address] PCP - General Internal Medicine 04/24/22 09/02/22 Krystal Dozier MD [address] [place] [address] PCP - General Internal Medicine 09/03/22 09/12/23 Community, Pcp [address] [place] [address] PCP - General Internal Medicine 09/13/23 [facility] PSYCHOLOGY 08/13/22 Malvin clifford Pulmonology 08/13/22 documented as of this encounter
--- OUTSIDE RECORDS SUMMARY | 2025-02-08 13:24 | XMS_ITS | Encounter Summary ---
Author Organization [facility] Address [address] [place] [address] Care Team Providers Care Peoplesoft Consultant Name Role Phone Darshana Leon MD Primary Care Provider Marj Arenas MD Primary Care Provider [phone] Krystal Dozier MD Primary Care Provider [phone] [facility], Pcp Primary Care Provider Unavailabl e Encounter Details Date Type Department Care Team Description 02/12/2013 Controlled Substance Plan Medical Records [address] [place] [address] Abstract, Provider Social History Tobacco Use Types [...] on filedocumented in this encounter Care Teams Peoplesoft Consultant Relationship Specialty Start Date End Date Darshana Leon MD PCP - General Internal Medicine 10/03/12 04/23/22 Marj Gonzales MD [address] [place] [address] PCP - General Internal Medicine 04/24/22 09/02/22 Krystal Dozier MD [address] [place] [address] PCP - General Internal Medicine 09/03/22 09/12/23 Community, Pcp [address] [place] [address] PCP - General Internal Medicine 09/13/23 [facility] PSYCHOLOGY 08/13/22 Malvin clifford Pulmonology 08/13/22 documented as of this encounter
--- OUTSIDE RECORDS SUMMARY | 2025-02-08 13:24 | XMS_ITS | Encounter Summary ---
Author Organization [facility] Address [address] [place] [address] Care Team Providers Care Varnish Mixer Name Role Phone Darshana Leon MD Primary Care Provider Marj Arenas MD Primary Care Provider [phone] Krystal Dozier MD Primary Care Provider [phone] [facility], Pcp Primary Care Provider Unavailabl e Encounter Details Date Type Department Care Team Description 02/18/2013 Sql Server Consultant Report Medical Records [address] [place] [address] Mariana Valenzuela MD Social History Tobacco Use [...] on filedocumented in this encounter Care Teams Varnish Mixer Relationship Specialty Start Date End Date Darshana Leon MD PCP - General Internal Medicine 10/03/12 04/23/22 Marj Gonzales MD [address] [place] [address] PCP - General Internal Medicine 04/24/22 09/02/22 Krystal Dozier MD [address] [place] [address] PCP - General Internal Medicine 09/03/22 09/12/23 Community, Pcp [address] [place] [address] PCP - General Internal Medicine 09/13/23 [facility] PSYCH[facility] 08/13/22 Malvin clifford Pulmonology 08/13/22 documented as of this encounter
--- OUTSIDE RECORDS SUMMARY | 2025-02-08 13:24 | XMS_ITS | Encounter Summary ---
Author Organization [facility] Address [address] [place] [address] Care Team Providers Care Corporate Safety Director Name Role Phone Marj Gonzales MD Primary Care Provider [phone] Krystal Dozier MD Primary Care Provider [facility], Pcp Primary Care Provider Unavailabl e Encounter Details Date Type Department Care Team Description 07/13/2022 Orders Only Adult Medicine - [place] [address] [place] [address] Christopher Sherman PA-C [address] [place] [address] Social History Tobacco Use Types Packs/Day Years [...] on filedocumented in this encounter Care Teams Corporate Safety Director Relationship Specialty Start Date End Date Marj Gonzales MD [address] [place] [address] PCP - General Internal Medicine 04/24/22 09/02/22 Krystal Dozier MD [address] [place] [address] PCP - General Internal Medicine 09/03/22 09/12/23 [facility], Pcp [address] [place] [address] PCP - General Internal Medicine 09/13/23 [facility] PSYCHOLOG[facility] 08/13/22 Malvin clifford Pulmonology 08/13/22 documented as of this encounter
--- OUTSIDE RECORDS SUMMARY | 2025-02-08 13:24 | XMS_ITS | Encounter Summary ---
Author Organization [facility] Address [address] [place] [address] Care Team Providers Care Director Of Corporate Responsibility Name Role Phone Marj Gonzales MD Primary Care Provider [phone] Krystal Dozier MD Primary Care Provider [facility], Pcp Primary Care Provider Unavailabl e Reason for Visit * Reason Onset Date Comments medication problems 07/19/2022 Encounter Details Date Type Department Care Team Description 07/19/2022 Telephone Adult Medicine - [place] [address] [place] [address] Marj Gonzales MD [address] [place] [address] medication problems Social History Tobacco Use Types Packs/Day Years [...] encounter Miscellaneous Notes * Telephone Encounter - Adriana Morgan M.A. - 07/24/2022 12:10 PM EDT Telephone Information: Left message for patient to return our call, [phone]. * Telephone Encounter - Sindy Zhang PA-C - 07/24/2022 11:59 AM EDT [facility] requires patients on opiates to be seen every 90 days with PCP. It also requires that she is seen with a new PCP within 90 days and have a new contract signed. Patient was due to be seen in May (last seen February by Dr Kemp) and was not scheduled until July and therefore the taper was initiated per management guidelines. She should not be running out of medication if she is followingthe taper as written. * Telephone Encounter - Khushi Null - 07/20/2022 4:21 PM EDT Pt is waiting consular officer * Telephone Encounter - Laura Ruth M.A. - 07/19/2022 3:11 PM EDT Patient calling about Morphine 15 mg and 30 mg - states she has been on these doses for years - CSC signed by Darshana Leon MD 05/15/2017 Morphine 30 mg 1 tab TID QTY 84 and Morphine MSIR 15 mg 4x daily QTY 112 - see telephone encounter 06/11/22 - appt that was scheduled 06/25/22 with was canceled as center request this was re-scheduled to 07/06/22, in which patient stated she had to cancel due to being sick and then re- scheduled to 07/31/22. - pt received Morphine 30 mg on 06/11/22 for 43 tabs , Morphine 15 mg CR on 07/11/22 for 21 tabs and Morphine 15 mg on 07/11/22 for 70 tabs Patient is confused on why this tapering dose was started in the first place and why is she being tapered as she needs this medication to function daily as she has multiple problems that make it difficult to function with daily activities. [place] office started the tapering dose, routing to that office to contact patient for clarification. documented in this encounter Plan of Treatment Not on file documented as of this encounter Visit Diagnoses Not on filedocumented in this encounter Care Teams Director Of Corporate Responsibility Relationship Specialty Start Date End Date Marj Gonzales MD [address] [place] [address] PCP - General Internal Medicine 04/24/22 09/02/22 Krystal Dozier MD [address] [place] [address] PCP - General Internal Medicine 09/03/22 09/12/23 [facility], [address] [address] PCP - General Internal Medicine 09/13/23 [facility] 08/13/22 Malvin clifford Pulmonology 08/13/22 documented as of this encounter
--- OUTSIDE RECORDS SUMMARY | 2025-02-08 13:24 | XMS_ITS | Encounter Summary ---
Author Organization [facility] Address [address] [place] [address] Care Team Providers Care Harbor Pilot Name Role Phone Marj Gonzales MD Primary Care Provider [phone] Krystal Dozier MD Primary Care Provider [phone] [facility], Pcp Primary Care Provider Unavailabl e Reason for Visit * Reason Onset Date Comments Medication 07/18/2022 pt requesting mary jane phelan nurse call her Encounter Details Date Type Department Care Team Description 07/18/2022 Telephone Adult Medicine [address] [address] Marj Gonzales MD [address] [place] [address] Medication (pt requesting triage nurse call her) [...] on filedocumented in this encounter Care Teams Harbor Pilot Relationship Specialty Start Date End Date Marj Gonzales MD [address] [place] [address] PCP - General Internal Medicine 04/24/22 09/02/22 Krystal Dozier MD [address] [place] [address] PCP - General Internal Medicine 09/03/22 09/12/23 [facility], [address] [address] PCP - General Internal Medicine 09/13/23 [facility] 08/13/22 Malvin clifford Pulmonology 08/13/22 documented as of this encounter
--- OUTSIDE RECORDS SUMMARY | 2025-02-08 13:24 | XMS_ITS | Encounter Summary ---
Author Organization [facility] Address [address] [place] [address] Care Team Providers Care Nurses' Registry Director Name Role Phone Krystal Dozier MD Primary Care Provider [phone] [facility], Pcp Primary Care Provider Unavailabl e Reason for Visit * Reason Onset Date Comments REFERRAL 09/11/2022 Encounter Details Date Type Department Care Team Description 09/11/2022 Telephone Adult Medicine [facility] [address] [place] [address] Krystal Dozier MD [address] [place] [address] REFERRAL Social History Tobacco Use Types Packs/Day Years Used Date Smoking Tobacco: Never Smokeless Tobacco: Never Alcohol Use Standard Drinks/Week Comments No 0 (1 standard drink = 0.6 oz pur e alcohol) Sex Assigned at Date Recorded Not on file Job Start Date Occupation Industry Not on file Not on file Not on file COVID-19 Exposure Response Date Recorded In the last 10 days, have yo u been in contact with someone who was confirmed or suspected to have Coronavirus/COVID-19? No / Unsure 08/13/2022 9:55 AM EDT documented as of this encounter Miscellaneous Notes * Telephone Encounter - Lakesha Bae - 09/11/2022 4:26 PM EST What insurance does the patient have today? Payor: [facility] [employer] [facility] FFS / Plan: [facility] [employer] / Product Type: MEDICAID [id number] Effective 08/04/09: BCBS will not retro referral [...] insurance must be obtained and registered in [facility] or their referral can not be processed. Is this a retro request? NO. If yes for what date of service do you need the retro referral? N/A Who is calling to request this referral? The patient If the caller is not the patient, what is their name? N/A Ask the patient WHO referred them to this specialty: Patient spoke to and was told they would order a referral to this specialty FIRST and LAST NAME of SPECIALIST PATIENT is seeing: TBD What specialty is this? Pain management DIAGNOSIS Patient is being seen for (Not a body part or a procedure): Chronic pain syndrome,Spinal stenosis of cervical region Have you seen this SPECIALIST for this PROBLEM/DX before?NO If YES, when: Have you checked REVIEW or the APPT DESK to see if this referral has already been done or has visits left? YES Is this visit:Initial Visit Address of Specialist: [address] [place] [address] Phone # of Specialist:[phone] Fax #: (if applicable):[phone] Does patient have an appointment scheduled?: NO Date of appointment- (including a retro-request): Is this appointment related to: Not MVA, WC or Surgery related documented in this encounter Plan of Treatment Not on file documented as of this encounter Visit Diagnoses Not on filedocumented in this encounter Care Teams Nurses' Registry Director Relationship Specialty Start Date End Date Krystal Dozier MD [address] [place] [address] PCP - General Internal Medicine 09/03/22 09/12/23 [facility], [address] [address] PCP - General Internal Medicine 09/13/23 [facility] 08/13/22 Malvin clifford Pulmonology 08/13/22 documented as of this encounter
--- OUTSIDE RECORDS SUMMARY | 2025-02-08 13:24 | XMS_ITS | Encounter Summary ---
Author Organization [facility] Address [address] [place] [address] Care Team Providers Care Distillation Operator Name Role Phone Marj Gonzales MD Primary Care Provider [phone] Krystal Dozier MD Primary Care Provider [phone] [facility], Pcp Primary Care Provider Unavailabl e Reason for Visit * Reason Comments E-prescribe Rx Request Encounter Details Date Type Department Care Team Description 05/24/2022 Refill Medicine/Pediatrics - [address] [phone] Darshana Leon MD E-prescribe Rx Request Social History Tobacco Use Types Packs/Day Years [...] encounter Miscellaneous Notes * Telephone Encounter - Krista Alfred - 05/24/2022 9:56 AM EDT REFILL LAST OFFICE VIST: 02/07/22 LAST PCP VISIT: NEXT OFFICE VISIT: 06/25/22 documented in this encounter Plan of Treatment Not on file documented as of this encounter Visit Diagnoses Not on filedocumented in this encounter Care Teams Distillation Operator Relationship Specialty Start Date End Date Marj Gonzales MD [address] [place] [address] PCP - General Internal Medicine 04/24/22 09/02/22 Krystal Dozier MD [address] [place] [address] PCP - General Internal Medicine 09/03/22 09/12/23 Mumtaz, Paulina [address] [place] [address] PCP - General Internal Medicine 09/13/23 [facility] 08/13/22 Malvin clifford Pulmonology 08/13/22 documented as of this encounter
--- OUTSIDE RECORDS SUMMARY | 2025-02-08 13:24 | XMS_ITS | Encounter Summary ---
Author Organization [facility] Address [address] [place] [address] Care Team Providers Care Igniter Assembler Name Role Phone Darshaan Leon MD Primary Care Provider Marj Arenas MD Primary Care Provider [phone] Krystal Dozier MD Primary Care Provider [phone] [facility], Pcp Primary Care Provider [facility] Encounter Details Date Type Department Care Team Description 12/24/2017 [facility] Medical Records [address] [place] [address] Abstract, Provider Social History Tobacco Use Types [...] on filedocumented in this encounter Care Teams Igniter Assembler Relationship Specialty Start Date End Date Darshana Leon MD PCP - General Internal Medicine 10/03/12 04/23/22 Marj Gonzales MD [address] [place] [address] PCP - General Internal Medicine 04/24/22 09/02/22 Krystal Dozier MD [address] [place] [address] PCP - General Internal Medicine 09/03/22 09/12/23 [facility], Pcp [address] [place] [address] PCP - General Internal Medicine 09/13/23 [facility] 08/13/22 Malvin clifford Pulmonology 08/13/22 documented as of this encounter
== END 2025-02-08 11:50 | disposition home or self-care (01) ==
LOC: HO.HMCFM 11:11
PROVIDERS: PCP Internal Medicine; Visit Provider Internal Medicine
DX: M47.22 Other spondylosis with radiculopathy, cervical region (principal); M47.816 Spondylosis without myelopathy or radiculopathy, lumbar region; R31.9 Hematuria, unspecified

== ENCOUNTER → 2025-02-08 11:10 | Outpatient (BNVA) | payer OTHER, SELFPAY | PROVIDERS: PCP Internal Medicine; Visit Provider Internal Medicine | DX: M47.22 Other spondylosis with radiculopathy, cervical region (principal); M47.816 Spondylosis without myelopathy or radiculopathy, lumbar region; R31.9 Hematuria, unspecified; J45.909 Unspecified asthma, uncomplicated; G89.29 Other chronic pain; Z79.891 Long term (current) use of opiate analgesic | CPT/HCPCS: 99212 ==

== ENCOUNTER 2025-02-08 11:56 | Outpatient (REF) | payer OTHER, SELFPAY ==
[2025-02-08 14:08] LABS: Appearance Urine Clear; Color Urine Yellow; Glucose Urine UA Negative (Negative); Leukocyte Esterase Urine Negative (Negative); Nitrite Urine Negative (Negative); Urine Blood Negative (Negative); Urine Ketones Negative (Negative); Urine Protein Negative (Neg-Trace)
== END 2025-02-08 11:57 | disposition home or self-care (01) ==
LOC: HO.WFDLDS 11:56
PROVIDERS: Visit Provider Internal Medicine
DX: R31.9 Hematuria, unspecified (principal)
CPT/HCPCS: 81003

== ENCOUNTER 2025-02-12 14:33 | Outpatient (AMB) | payer OTHER, SELFPAY ==
--- NOTE | 2025-02-12 14:41 | A.OFFVIS_ITS ---
Vital Signs 02/12/25 14:47 Height 4 ft 10 in Weight 145 lb BMI 30.3 BP 116/58 L Blood Pressure Location Lt brachial Position Sitting Pulse 77 Pulse Source Pulse Oximeter Pulse Oximetry (%) 98 Oxygen Delivery Method Room Air 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 Reasons: Follow Up Pt Request Intake Note: Pain today 08/13 Flight Information Expediter Required: No Accompanied by: Self / Same As Patient Allergies iron Allergy (Severe, Verified 02/12/25 14:48) difficutly breathing prednisolone Allergy (Severe, Verified 02/12/25 14:48) difficulty breathing iodine Allergy (Mild, Verified 02/12/25 14:48) Hives meperidine [Demerol] Allergy (Mild, Verified 02/12/25 14:48) Difficulty Breathing Cortisone Allergy (Severe, Uncoded 02/08/25 11:18) Hives prednisolone-propyl Allergy (Unknown, Uncoded 02/08/25 11:18) difficutly breathing HPI Comments Details: The patient is a 54-year-old female presenting with cervical pain without radiculopathy. She has experienced persistent neck pain radiating to her right shoulder, accompanied by a sensation of heaviness in her head, headaches, and dizziness, following painful physical therapy. This has led to symptoms exacerbated by massage therapy, including muscle tension headaches and dizziness. The patient also reports panic attacks triggered by certain neck exercises and positions during therapy. Her neck pain worsens when pressure is applied to her head or when lying flat, although x-rays have only shown age-related changes. Prolonged sitting or standing causes tingling in the mid-back and fatigue, despite attempts to alleviate discomfort with an orthopedic pillow. The neck pain disturbs her sleep pattern, requiring positional changes for relief. Additionally, her symptoms aggravate with cold weather, leading to increased pain. - Onset: Greater than 10 years; worsening after initiation of physical therapy - Quality/Character: Heaviness in head, headaches, dizziness, numbness in leg - Location of Pain: Neck radiating to right shoulder - Radiation: From neck to shoulder - Exacerbating Factors: Physical therapy exercises, massage, lying flat, cold weather, prolonged sitting or standing - Alleviating Factors: Positional changes, support under neck when sleeping - Interference: Disturbances in sleep, limited head movement, impaired sitting or standing - Affect: Neck pain and associated symptoms affect sleep quality and contribute to panic attacks. - Analgesia: Reports seeking non-steroidal options due to allergy to steroids. - Adverse Effects: Increased headache and dizziness following massage therapy. - Activities of Daily Living: Substantial impact on sleep quality and limitations in standing or sitting for extended periods. - Aberrant Drug Related Behaviors: None reported or discussed. Prior: Meredith is a very pleasant 54-year-old female who presents to the office today for evaluation and management of her chronic neck pain. She has been suffering with this pain for greater than 10 years. Denies inciting injury, fall, trauma. Referred here for lower back pain though patient requested focus on her neck pain as this is the most significant. Endorses midline cervical neck pain with radiation across the top of both shoulders. Denies radiation of the pain down either lower extremities. Denies numbness, tingling, weakness of either upper extremity. States this will also cause her to have cervicogenic headaches Denies recent imaging Denies recent attempts at physical therapy Currently using TENs unit with no relief. Minimal relief with massage. Taking [id number] Tylenol and ibuprofen minimal relief. She has taking gabapentin and Lyrica but had side effects therefore it was discontinued Currently taking muscle relaxers and is on a chronic opioid contract but pain persists Pain today is rated as a 9/10, constant. Exacerbated by movement, palpation and cold weather. In terms of muscle damage condition is described as hot, burning, pinching, cramping, crushing, tingling, aching, throbbing Pain is negatively impacting patient's sleep, ability to perform activities of daily living, ability to care for herself, ability to function normally. She currently has [employer] EXECUTIVE DIRECTOR to assist at home. Denies current use of anticoagulants Denies implantable devices, pacemaker or defibrillator Denies current use of nicotine, tobacco, alcohol or illicit substances [facility] Surgical History H/O tooth extraction Social History (Updated 02/08/25 @ 11:24 by Siria Jean CMA) Housing: House Alcohol intake: never Patient Tobacco Use Status: Never used Tobacco e-Cigarette/Vaping Use: Never Used Second Hand Smoke Exposure: No service: No Current occupational status: disabled Cognitive needs: No Hearing needs: No Vision needs: No Review of Systems Const Details: - Musculoskeletal: Reports neck pain radiating to right shoulder. - Neurological: Reports headaches, dizziness - Behavioral: Reports panic attacks with certain neck movements. - Sleep: Reports sleep disturbances due to neck pain. Physical Exam Vital Signs: Last Vital Signs Pulse 77 02/12/25 14:47 BP 116/58 L 02/12/25 14:47 Pulse Ox 98 02/12/25 14:47 Oxygen Delivery Method Room Air 02/12/25 14:47 BMI result Body Mass Index 30.3 General: awake, alert, oriented. Answers questions appropriately. Fully engaged in examination. Skin: warm, dry, intact HEENT: Normocephalic. Hearing intact. Cardiac: External chest normal in appearance. Respiratory: No cough, audible wheezing or stridor. Abdomen: without gross distension. MS: No obvious swelling or deformities. Able to transition from sit to stand unassisted. Cervical Spine: Tender to palpation midline cervical vertebrae and cervical paraspinal muscles; right greater than left decreased cervical ROM in all planes Spurling compression test positive BUE strength 5/5 Neurological: Oriented to person, place, time and situation. Thought process intact. No gait abnormalities appreciated. Psychiatric: Appropriate mood and affect. Good judgment and insight. Results Reviewed Results Reviewed: 01/07/25 XR/XR cervical spine w flex/ext TECHNIQUE: 6 views of the cervical spine, inclusive of flexion and extension views, were obtained. FINDINGS: There is mild straightening of lumbar lordosis. The vertebral heights and alignment is normal. Loss of C5-6, C6 -C7 disc heights with ventral and posterior spondylosis noted. Moderate left C4-5 facet joint arthropathy and hypertrophy is noted. The prevertebral soft tissues are normal. IMPRESSION: Mild degenerative disc changes C6-7 and C5-6 disc levels. No visible acute fracture or dislocation seen Assessment & Plan Assessment & Plan (1) Lumbar spondylosis: Code(s): M47.816 - Spondylosis without myelopathy or radiculopathy, lumbar region Category: Medical (2) Cervical spine degeneration: Code(s): M47.812 - Spondylosis without myelopathy or radiculopathy, cervical region Category: Medical Qualifiers: Spinal osteoarthritis complication: with radiculopathy Qualified Code(s): M47.22 - Other spondylosis with radiculopathy, cervical region (3) Degenerative cervical disc: Comment: continue ER morphine. neurology referral. cannot tolerate injections. Code(s): M50.30 - Other cervical disc degeneration, unspecified cervical region Category: Medical Plan The management plan for cervical pain without radiculopathy involves diagnostic nerve block injections in the cervical joints, with a focus on assessing pain relief to guide further treatment. The initial phase will involve administering the numbing medication on the right side to ensure no steroid exposure due to patient allergies. The patient is to maintain a pain diary to record the relief levels, which will assist in deciding the next stage of therapy, potentially including peripheral neurostimulators or nerve burning. Constant follow-up and procedural approvals through insurance were discussed and arranged to accommodate patient safety and consent for the right-side injection. Left side injections will follow after 2 weeks. I discussed the current cervical pain management issues with the patient, focusing on options for further diagnostic evaluation via nerve block injections. I ensured the patient understood the procedure's purpose, temporary nature, and non-involvement of steroids to comply with her allergy concerns. She consented to the right-side diagnostic injection, scheduled after insurance approval, with a subsequent left-side plan depended upon right-side success. I emphasized the need for a pain diary to track relief levels, which will determine long-term treatment routes including temporary peripheral neurostimulation or nerve burning. We also addressed [id number] pain relief momentarily while ensuring the patient remained aligned and informed on potential procedures, follow-ups, and risk factors involved. Will schedule for fluoroscopy guided diagnostic right C4-C5 C6 medial branch blocks with local anesthetic. Diagnostic left C4-C5 C6 medial branch block diagnostic injections to follow after 2 weeks. Patient was informed and verbally consented to the use of an ambient scribe for clinic note documentation during this visit. Patient Instructions: - Keep a pain diary to note relief levels after the injection. - Follow up for a left-side injection session depending on assessments from the pain diary. - Avoid any exercises or movements that exacerbate pain. - Use positional supports when sleeping to relieve neck discomfort. - Monitor for any unusual symptoms and contact promptly for medical advice. - Expect contact from the clinic to schedule the initial procedure once insurance approves. Coding Level of Care Code Est Pt Level 3 (67236) Complex EM visit Add On G2211 Diagnoses Lumbar spondylosis M47.816 Osteoarthritis of spine with radiculopathy, 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 Spinal osteoarthritis complication: with radiculopathy Degenerative cervical disc M50.30
[2025-02-12 14:47] VITALS: BP 116/58; PULSE 77; O2SAT 98; BMI 30.3
--- OUTSIDE RECORDS SUMMARY | 2025-02-12 14:50 | XMS_ITS | Encounter Summary ---
Author Organization [facility] Address [address] [place] [address] Care Team Providers Care Quality Reviewer Name Role Phone Darshana Leon MD Primary Care Provider Marj Arenas MD Primary Care Provider [phone] Krystal Dozier MD Primary Care Provider [phone] [facility], Pcp Primary Care Provider Unavailabl e Encounter Details Date Type Department Care Team Description 02/01/2017 Release of Information Medical Records [address] [place] [address] Abstract, Provider Social History Tobacco Use Types [...] on filedocumented in this encounter Care Teams Quality Reviewer Relationship Specialty Start Date End Date Darshana Leon MD PCP - General Internal Medicine 10/03/12 04/23/22 Marj Gonzales MD [address] [place] [address] PCP - General Internal Medicine 04/24/22 09/02/22 Krystal Dozier MD [address] [place] [address] PCP - General Internal Medicine 09/03/22 09/12/23 [facility], Pcp [address] [place] [address] PCP - General Internal Medicine 09/13/23 [facility] 08/13/22 Malvin clifford Pulmonology 08/13/22 documented as of this encounter
--- OUTSIDE RECORDS SUMMARY | 2025-02-12 14:50 | XMS_ITS | Encounter Summary ---
Author Organization [facility] Address [address] [place] [address] Care Team Providers Care Lifeguard Name Role Phone Darshana Leon MD Primary Care Provider Marj Arenas MD Primary Care Provider [phone] Krystal Dozier MD Primary Care Provider [phone] [facility], Pcp Primary Care Provider Unavailabl e Encounter Details Date Type Department Care Team Description 03/10/2014 Target Worker Report Medical Records [address] [place] [address] Mariana Valenzuela MD Social History Tobacco Use [...] on filedocumented in this encounter Care Teams Lifeguard Relationship Specialty Start Date End Date Darshana Leon MD PCP - General Internal Medicine 10/03/12 04/23/22 Marj Gonzales MD [address] [place] [address] PCP - General Internal Medicine 04/24/22 09/02/22 Krystal Dozier MD [address] [place] [address] PCP - General Internal Medicine 09/03/22 09/12/23 [facility], Pcp [address] [place] [address] PCP - General Internal Medicine 09/13/23 [facility] 08/13/22 Malvin clifford Pulmonology 08/13/22 documented as of this encounter
--- OUTSIDE RECORDS SUMMARY | 2025-02-12 14:50 | XMS_ITS | Encounter Summary ---
Author Organization [facility] Address [address] [place] [address] Care Team Providers Care Program Coordinator Name Role Phone Darshana Leon MD Primary Care Provider Marj Arenas MD Primary Care Provider [phone] Krystal Dozier MD Primary Care Provider [facility], Pcp [facility] Encounter Details Date Type Department Care Team Description 06/17/2017 [facility] Medical Records [address] [place] [address] Abstract, Provider Social History Tobacco Use Types [...] on filedocumented in this encounter Care Teams Program Coordinator Relationship Specialty Start Date End Date Darshana Leon MD PCP - General Internal Medicine 10/03/12 04/23/22 Marj Gonzales MD [address] [place] [address] PCP - General Internal Medicine 04/24/22 09/02/22 Krystal Dozier MD [address] [place] [address] PCP - General Internal Medicine 09/03/22 09/12/23 [facility], Pcp [address] [place] [address] PCP - General Internal Medicine 09/13/23 [facility] 08/13/22 Malvin clifford Pulmonology 08/13/22 documented as of this encounter
--- OUTSIDE RECORDS SUMMARY | 2025-02-12 14:50 | XMS_ITS | Encounter Summary ---
Author Organization [facility] Address [address] [place] [address] Care Team Providers Care Atg Architect Name Role Phone Darshana Leon MD Primary Care Provider Marj Arenas MD Primary Care Provider [phone] Krystal Dozier MD Primary Care Provider [facility], Pcp [facility] Encounter Details Date Type Department Care Team Description 05/01/2017 [facility] Medical Records [address] [place] [address] Abstract, Provider Social History Tobacco Use Types [...] on filedocumented in this encounter Care Teams Atg Architect Relationship Specialty Start Date End Date Darshana Leon MD PCP - General Internal Medicine 10/03/12 04/23/22 Marj Gonzales MD [address] [place] [address] PCP - General Internal Medicine 04/24/22 09/02/22 Krystal Dozier MD [address] [place] [address] PCP - General Internal Medicine 09/03/22 09/12/23 [facility], Pcp [address] [place] [address] PCP - General Internal Medicine 09/13/23 [facility] 08/13/22 Malvin clifford Pulmonology 08/13/22 documented as of this encounter
--- OUTSIDE RECORDS SUMMARY | 2025-02-12 14:50 | XMS_ITS | Encounter Summary ---
Author Organization [facility] Address [address] [place] [address] Care Team Providers Care Negative Cleaner Name Role Phone Darshana Leon MD Primary Care Provider Marj Arenas MD Primary Care Provider [phone] Krystal Dozier MD Primary Care Provider [facility], Pcp Primary Care Provider Unavailabl e Encounter Details Date Type Department Care Team Description 06/05/2019 Release of Information Medical Records [address] [place] [address] Abstract, Provider Social History Tobacco Use Types [...] on filedocumented in this encounter Care Teams Negative Cleaner Relationship Specialty Start Date End Date Darshana Leon MD PCP - General Internal Medicine 10/03/12 04/23/22 Marj Gonzales MD [address] [place] [address] PCP - General Internal Medicine 04/24/22 09/02/22 Krystal Dozier MD [address] [place] [address] PCP - General Internal Medicine 09/03/22 09/12/23 [facility], Pcp [address] [place] [address] PCP - General Internal Medicine 09/13/23 [facility] 08/13/22 Malvin clifford Pulmonology 08/13/22 documented as of this encounter
--- OUTSIDE RECORDS SUMMARY | 2025-02-12 14:50 | XMS_ITS | Encounter Summary ---
Author Organization [facility] Address [address] [place] [address] Care Team Providers Care Outgoing Inspector Name Role Phone Darshana Leon MD Primary Care Provider Marj Arenas MD Primary Care Provider [phone] Krystal Dozier MD Primary Care Provider [phone] [facility], Pcp Primary Care Provider Unavailabl e Encounter Details Date Type Department Care Team Description 08/26/2017 Release of Information Medical Records [address] [place] [address] Abstract, Provider Social History Tobacco Use Types [...] on filedocumented in this encounter Care Teams Outgoing Inspector Relationship Specialty Start Date End Date Darshana Leon MD PCP - General Internal Medicine 10/03/12 04/23/22 Marj Gonzales MD [address] [place] [address] PCP - General Internal Medicine 04/24/22 09/02/22 Krystal Dozier MD [address] [place] [address] PCP - General Internal Medicine 09/03/22 09/12/23 [facility], Pcp [address] [place] [address] PCP - General Internal Medicine 09/13/23 [facility] 08/13/22 Malvin clifford Pulmonology 08/13/22 documented as of this encounter
--- OUTSIDE RECORDS SUMMARY | 2025-02-12 14:50 | XMS_ITS | Encounter Summary ---
Author Organization [facility] Address [address] [place] [address] Care Team Providers Care Refinery Technician Name Role Phone Darshana Leon MD Primary Care Provider Marj Arenas MD Primary Care Provider [phone] Krystal Dozier MD Primary Care Provider [phone] [facility], Pcp Primary Care Provider Unavailabl e Reason for Visit * Reason Onset Date Comments Provider Call Back 10/15/2014 Encounter Details Date Type Department Care Team Description 10/15/2014 Telephone Medicine/Pediatrics - [address] [phone] Darshana Leon MD Provider Call Back Social [...] Hebert as she could not go to [facility] with her insurance For colonoscopy She now has new Insurance and does not want to have the colonoscopy done at [facility] , prefers [facility] or [facility] appt was cancelled per patient Will [...] for call back: Patient has appointment at [facility] for a colonoscopy, it is set up for . She states she does NOT want to go to [place] [facility], she wants to get it done at [facility] instead. She is looking to see if we can place a referral order for [facility] instead, please advise Caller offered to speak with the nurse for assistance: YES Response: Patient offered to speak with nurse for assistance and patient agreed. Message forwarded to nurse. documented in this encounter Plan of Treatment Not on file documented as of this encounter Visit Diagnoses Not on filedocumented in this encounter Care Teams Refinery Technician Relationship Specialty Start Date End Date Darshana Leon MD PCP - General Internal Medicine 10/03/12 04/23/22 Marj Gonzales MD [address] [place] [address] PCP - General Internal Medicine 04/24/22 09/02/22 Krystal Dozier MD [address] [place] [address] PCP - General Internal Medicine 09/03/22 09/12/23 [facility], [address] [address] PCP - General Internal Medicine 09/13/23 [facility] 08/13/22 Malvin clifford Pulmonology 08/13/22 documented as of this encounter
--- OUTSIDE RECORDS SUMMARY | 2025-02-12 14:50 | XMS_ITS | Encounter Summary ---
Author Organization [facility] Address [address] [place] [address] Care Team Providers Care Family Resource Coordinator Name Role Phone Darshana Leon MD Primary Care Provider Marj Arenas MD Primary Care Provider [phone] Krystal Dozier MD Primary Care Provider [phone] [facility], Pcp Primary Care Provider Unavailabl e Encounter Details Date Type Department Care Team Description 06/26/2019 Primary Substance Abuse Counselor Report Medical Records [address] [place] [address] Christopher Laird MD Social History Tobacco Use [...] on filedocumented in this encounter Care Teams Family Resource Coordinator Relationship Specialty Start Date End Date Darshana Leon MD PCP - General Internal Medicine 10/03/12 04/23/22 Marj Gonzales MD [address] [place] [address] PCP - General Internal Medicine 04/24/22 09/02/22 Krystal Dozier MD [address] [place] [address] PCP - General Internal Medicine 09/03/22 09/12/23 [facility], [facility] [address] [place] [address] PCP - General Internal Medicine 09/13/23 [facility] 08/13/22 Malvin clifford Pulmonology 08/13/22 documented as of this encounter
--- OUTSIDE RECORDS SUMMARY | 2025-02-12 14:50 | XMS_ITS | Encounter Summary ---
Author Organization [facility] Address [address] [place] [address] Care Team Providers Care Vp Publisher Development Name Role Phone Darshana Leon MD Primary Care Provider Marj Arenas MD Primary Care Provider [phone] Krystal Dozier MD Primary Care Provider [phone] [facility], Pcp Primary Care [facility] Encounter Details Date Type Department Care Team Description 05/20/2019 [facility] Medical Records [address] [place] [address] Abstract, Provider Social History Tobacco Use Types [...] on filedocumented in this encounter Care Teams Vp Publisher Development Relationship Specialty Start Date End Date Darshana Leon MD PCP - General Internal Medicine 10/03/12 04/23/22 Marj Gonzales MD [address] [place] [address] PCP - General Internal Medicine 04/24/22 09/02/22 rKystal Dozier MD [address] [place] [address] PCP - General Internal Medicine 09/03/22 09/12/23 [facility], Pcp [address] [place] [address] PCP - General Internal Medicine 09/13/23 [facility] 08/13/22 Malvin clifford Pulmonology 08/13/22 documented as of this encounter
--- OUTSIDE RECORDS SUMMARY | 2025-02-12 14:50 | XMS_ITS | Encounter Summary ---
Author Organization [facility] Address [address] [place] [address] Care Team Providers Care Supervisor Prepress Name Role Phone Darshana Leon MD Primary Care Provider Marj Arenas MD Primary Care Provider [phone] Krystal Dozier MD Primary Care Provider [facility], Pcp Primary Care Provider Unavailabl e Encounter Details Date Type Department Care Team Description 03/23/2014 Transfer Records Medical Records [address] [place] [address] Abstract, Provider Social History Tobacco Use Types [...] filedocumented in this encounter Care Teams Supervisor Prepress Relationship Specialty Start Date End Date Darshana Leon MD PCP - General Internal Medicine 10/03/12 04/23/22 Marj Gonzales MD [address] [place] [address] PCP - General Internal Medicine 04/24/22 09/02/22 Krystal Dozier MD [address] [place] [address] PCP - General Internal Medicine 09/03/22 09/12/23 Community, Pcp [address] [place] [address] PCP - General Internal Medicine 09/13/23 [facility] 08/13/22 Malvin clifford Pulmonology 08/13/22 documented as of this encounter
--- OUTSIDE RECORDS SUMMARY | 2025-02-12 14:50 | XMS_ITS | Encounter Summary ---
Author Organization [facility] Address [address] [place] [address] Care Team Providers Care Pipe Fitter Street Service Name Role Phone Darshana Leon MD Primary Care Provider Marj Arenas MD Primary Care Provider [phone] Krystal Dozier MD Primary Care Provider [phone] [facility], Pcp Primary Care Provider [facility] e Encounter Details Date Type Department Care Team Description 06/08/2020 Telephone Medicine/Pediatrics - [address] [address] Darshana Leon MD Social History Tobacco Use [...] 8:34 AM EDT Left message to call [phone] * Telephone Encounter - Fern Swain R.N. [...] on filedocumented in this encounter Care Teams Pipe Fitter Street Service Relationship Specialty Start Date End Date Darshana Leon MD PCP - General Internal Medicine 10/03/12 04/23/22 Marj Gonzales MD [address] [place] [address] PCP - General Internal Medicine 04/24/22 09/02/22 Krystal Dozier MD [address] [place] [address] [id number] PCP - General Internal Medicine 09/03/22 09/12/23 [facility], [address] [address] PCP - General Internal Medicine 09/13/23 [facility] 08/13/22 Malvin clifford Pulmonology 08/13/22 documented as of this encounter
--- OUTSIDE RECORDS SUMMARY | 2025-02-12 14:50 | XMS_ITS | Encounter Summary ---
Author Organization [facility] Address [address] [place] [address] Care Team Providers Care Community Director Name Role Phone Darshana Leon MD Primary Care Provider Marj Arenas MD Primary Care Provider [phone] Krystal Dozier MD Primary Care Provider [facility], Pcp Primary Care Provider [facility] Encounter Details Date Type Department Care Team Description 07/30/2014 Controlled Substance Plan Medical Records [address] [place] [address] Abstract, Provider Social History Tobacco Use Types [...] on filedocumented in this encounter Care Teams Community Director Relationship Specialty Start Date End Date Darshana Leon MD PCP - General Internal Medicine 10/03/12 04/23/22 Marj Gonzales MD [address] [place] [address] PCP - General Internal Medicine 04/24/22 09/02/22 Krystal Dozier MD [address] [place] [address] PCP - General Internal Medicine 09/03/22 09/12/23 Community, Pcp [address] [place] [address] PCP - General Internal Medicine 09/13/23 [facility] 08/13/22 Malvin clifford Pulmonology 08/13/22 documented as of this encounter
--- OUTSIDE RECORDS SUMMARY | 2025-02-12 14:50 | XMS_ITS | Encounter Summary ---
Author Organization [facility] Address [address] [place] [address] Care Team Providers Care Clothing Consultant Name Role Phone Krystal Dozier MD Primary Care Provider [phone] [facility], Pcp Primary Care Provider Unavailabl e Encounter Details Date Type Department Care Team Description 10/17/2022 [facility] Medical Records [address] [place] [address] Abstract, Provider Social History Tobacco Use Types [...] filedocumented in this encounter Care Teams Clothing Consultant Relationship Specialty Start Date End Date Krystal Dozier MD [address] [place] [address] PCP - General Internal Medicine 09/03/22 09/12/23 [facility], Pcp [address] [place] [address] PCP - General Internal Medicine 09/13/23 [facility] 08/13/22 Malvin clifford Pulmonology 08/13/22 documented as of this encounter
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
--- OUTSIDE RECORDS SUMMARY | 2025-02-12 14:50 | XMS_ITS | Encounter Summary ---
Author Organization [facility] Address [address] [place] [address] Care Team Providers Care Supervisor Cemetery Workers Name Role Phone Darshana Leon MD Primary Care Provider Marj Arenas MD Primary Care Provider [phone] Krystal Dozier MD Primary Care Provider [facility], Pcp Primary Care Provider [facility] e Encounter Details Date Type Department Care Team Description 08/08/2018 [facility] Medical Records [address] [place] [address] Abstract, Provider Social History Tobacco Use Types [...] filedocumented in this encounter Care Teams Supervisor Cemetery Workers Relationship Specialty Start Date End Date Darshana Leon MD PCP - General Internal Medicine 10/03/12 04/23/22 Marj Gonzales MD [address] [place] [address] PCP - General Internal Medicine 04/24/22 09/02/22 Krystal Dozier MD [address] [place] [address] PCP - General Internal Medicine 09/03/22 09/12/23 [facility], Pcp [address] [place] [address] PCP - General Internal Medicine 09/13/23 [facility] PSYCH[facility] 08/13/22 Malvin clifford Pulmonology 08/13/22 documented as of this encounter
--- OUTSIDE RECORDS SUMMARY | 2025-02-12 14:50 | XMS_ITS | Encounter Summary ---
Author Organization [facility] Address [address] [place] [address] Care Team Providers Care Scraper Loader Operator Name Role Phone Darshana Leon MD Primary Care Provider Marj Arenas MD Primary Care Provider [phone] Krystal Dozier MD Primary Care Provider [phone] [facility], Pcp Primary Care Provider [facility] e Reason for Visit * Reason Onset Date Comments Prior Authorization 03/26/2018 OMEPRAZOLE Encounter Details Date Type Department Care Team Description 03/26/2018 Telephone Medicine/Pediatrics - [address] [address] Darshana Leon MD Prior Authorization (OMEPRAZOLE) Social [...] 11:35 AM EDT Spoke with Rossy from [employer] who stated this was approved. She ran a test claim out as far asJuly and states it goes through with no problem * Telephone Encounter - Radha Perry M.A. - 04/10/2018 9:45 AM EDT Dx code:GERD K21.9 Refractory gerd despite once a day dosing Other pertinent information:prior authorization completed on paper request F[place] [facility] * Telephone Encounter - Darshana [...] bid dosing Please reply back to p [id number] Prior Auth pool Darby Ferraro M.A. [facility] Prior Authorizations Ext [id number] * Telephone Encounter - Theresa Onofre - 03/26/2018 10:23 AM EDT Pre Authorization for Medication-do not complete and send this encounter unless you have the fax from the pharmacy. Is this a Cover My Meds request: [place] of Medication OMEPRAZOLE Dose of Medication 20 MG How does patient take this med? What Pharmacy did the fax come from: [facility] Pharmacy fax #: [phone] [employer] Information from fax: What Prescription Plan does the patient have? Payor: [employer] FFS / Plan: [employer] /Product Type: MEDICAID RISK BIN/PCN if applicable: Cardholder ID:[id number] Person Code: Relationship Code: Help desk phone: FAXED TO PRIOR AUTH documented in this encounter Plan of Treatment Not on file documented as of this encounter Visit Diagnoses Not on filedocumented in this encounter Care Teams Scraper Loader Operator Relationship Specialty Start Date End Date Darshana Leon MD PCP - General Internal Medicine 10/03/12 04/23/22 Marj Gonzales MD [address] [place] [address] PCP - General Internal Medicine 04/24/22 09/02/22 Krystal Dozier MD [address] [place] [address] PCP - General Internal Medicine 09/03/22 09/12/23 Mumtaz, Pcp [address] [place] [address] PCP - General Internal Medicine 09/13/23 [facility] 08/13/22 Malvin clifford Pulmonology 08/13/22 documented as of this encounter
--- OUTSIDE RECORDS SUMMARY | 2025-02-12 14:50 | XMS_ITS | Encounter Summary ---
Author Organization [facility] Address [address] [place] [address] Care Team Providers Care Superintendent Transmission Name Role Phone Darshana Leon MD Primary Care Provider Mraj Arenas MD Primary Care Provider [phone] Krystal Dozier MD Primary Care Provider [phone] [facility], Pcp Primary Care Provider [facility] Reason for Visit * Reason Onset Date Comments Provider Call Back 09/15/2013 Encounter Details Date Type Department Care Team Description 09/15/2013 Telephone Physiatry - [address] [address] Janeth Louis PA-C Provider Call Back Social [...] Her appointment is scheduled for this at [address] [place] [address] in [place]. . Also she wants to know if you can prescribe something stronger for her back pain she is still in a great deal of pain, and still is waking up stiff. documented in this encounter Plan of Treatment Not on file documented as of this encounter Visit Diagnoses Not on filedocumented in this encounter Care Teams Superintendent Transmission Relationship Specialty Start Date End Date Darshana Leon MD PCP - General Internal Medicine 10/03/12 04/23/22 Marj Gonzales MD [address] [place] [address] PCP - General Internal Medicine 04/24/22 09/02/22 Krystal Dozier MD [address] [place] [address] PCP - General Internal Medicine 09/03/22 09/12/23 [facility], Pcp [address] [place] [address] PCP - General Internal Medicine 09/13/23 Z[facility] PSYCHOLOG[facility] 08/13/22 Malvin clifford Pulmonology 08/13/22 documented as of this encounter
--- OUTSIDE RECORDS SUMMARY | 2025-02-12 14:50 | XMS_ITS | Encounter Summary ---
Author Organization [facility] Address [address] [place] [address] Care Team Providers Care Intensive Care Medicine Specialist Name Role Phone Darshana Leon MD Primary Care Provider Marj Arenas MD Primary Care Provider [phone] Krystal Dozier MD Primary Care Provider [phone] [facility], Pcp Primary Care Provider [facility] e Encounter Details Date Type Department Care Team Description 10/06/2014 Transfer Records Medical Records [address] [place] [address] Social History Tobacco Use Types Packs/Day Years [...] on filedocumented in this encounter Care Teams Intensive Care Medicine Specialist Relationship Specialty Start Date End Date Darshana Leon MD PCP - General Internal Medicine 10/03/12 04/23/22 Marj Gonzales MD [address] [place] [address] PCP - General Internal Medicine 04/24/22 09/02/22 Krystal Dozier MD [address] [place] [address] PCP - General Internal Medicine 09/03/22 09/12/23 Community, Pcp [address] [place] [address] PCP - General Internal Medicine 09/13/23 Zhen PSYCHOLOG[facility] 08/13/22 Malvin clifford Pulmonology 08/13/22 documented as of this encounter
--- OUTSIDE RECORDS SUMMARY | 2025-02-12 14:50 | XMS_ITS | Clinical Summary ---
Author Organization [facility] Address [address] [place] [address] Care Team Providers Care Weight Caller Name Role Phone Community, Pcp Primary Care Provider Unavailabl e Allergies Active Allergy Reactions Severity Noted Date Comments Meperidine Hcl Hives/Urticaria 07/07/2013 Iodine 10/06/2012 Iron Hives/Urticaria,Itch i ng/Pruritus 01/13/2014 Iron infusion Alc-Carlos Kcg-Afbsxslswovu-Gqahhp Glycol 10/06/2012 Medrol - shortness of breath [...] Cap 3 10/14/2020 Active Cholecalciferol 1.25 MG (42106 UT) Cap Take 1 capsule by mouth [...] History Relation Name Comments CA Colon Brother [place] Maternal Grandmother CA Breast Negative Hx CA Ovarian Negative Hx Uterine Cancer Negative Hx Relation Name Status Comments Aunt x3 all of leukemia Brother Daughter Alive 1991; Kerrie Father unk; never met Maternal Grandfather Maternal Grandmother [place] Mother (Age 28) chol, HTN; pt does [...] 07/01/2024 07/01/2019 , 10/06/2012, 10/06/2012 Covid-19 Vaccine ( - 2022-2 4 season) 2024 04/23/2022, 11/03/2021, 10/06/2021, Additional history exists BMI CHECK/ADVISE 11/04/2024 11/06/2022, 08/2022, 10/18/2021, Additional history exists DEPRESSION SCREENING/FOLLOWUP 11/04/2024, 06/07/2020, 06/07/2020, Additional history exists SOCIAL NEEDS SCREENING 11/04/2024 CERVICAL CANCER SCREENING 02/09/2025 02/09/2022, 02/2014 INFLUENZA (Season Ended) 2025 08/17/2020, 01/2012 PNEUMOCOCCAL VACCINE FOR HIG H RISK PATIENTS (#2) 2034 07/07/2010 Care Teams Weight Caller Relationship Specialty Start Date End Date Community, Pcp PCP - General Internal Medicine 09/13/23 [facility] PSYCHOLOG[facility] 08/13/22 Malvin clifford Pulmonology 08/13/22
--- OUTSIDE RECORDS SUMMARY | 2025-02-12 14:50 | XMS_ITS | Encounter Summary ---
Author Organization [facility] Address [address] [place] [address] Care Team Providers Care Dinkey Locomotive Operator Name Role Phone Darshana Leon MD Primary Care Provider Marj Arenas MD Primary Care Provider [phone] Krystal Dozier MD Primary Care Provider [facility], Pcp Primary Care Provider [facility] Encounter Details Date Type Department Care Team Description 09/13/2015 Controlled Substance Plan Medical Records [address] [place] [address] Abstract, Provider Social History Tobacco Use Types [...] on filedocumented in this encounter Care Teams Dinkey Locomotive Operator Relationship Specialty Start Date End Date Darshana Leon MD PCP - General Internal Medicine 10/03/12 04/23/22 Marj Gonzales MD [address] [place] [address] PCP - General Internal Medicine 04/24/22 09/02/22 Krystal Dozier MD [address] [place] [address] PCP - General Internal Medicine 09/03/22 09/12/23 Community, Pcp [address] [place] [address] PCP - General Internal Medicine 09/13/23 Zhen PSYCHOLOGY 08/13/22 Malvin clifford Pulmonology 08/13/22 documented as of this encounter
--- OUTSIDE RECORDS SUMMARY | 2025-02-12 14:50 | XMS_ITS | Encounter Summary ---
Author Organization [facility] Address [address] [place] [address] Care Team Providers Care Hotel Front Office Manager Name Role Phone Darshana Leon MD Primary Care Provider Marj Arenas MD Primary Care Provider [phone] Krystal Dozier MD Primary Care Provider [facility], Pcp Primary Care Provider Unavailabl e Encounter Details Date Type Department Care Team Description 01/22/2014 Controlled Substance Plan Medical Records [address] [place] [address] Abstract, Provider Social History Tobacco Use Types [...] on filedocumented in this encounter Care Teams Hotel Front Office Manager Relationship Specialty Start Date End Date Darshana Leon MD PCP - General Internal Medicine 10/03/12 04/23/22 Marj Gonzales MD [address] [place] [address] PCP - General Internal Medicine 04/24/22 09/02/22 Krystal Dozier MD [address] [place] [address] PCP - General Internal Medicine 09/03/22 09/12/23 Community, Pcp [address] [place] [address] PCP - General Internal Medicine 09/13/23 Zhen PSYCHOLOGY 08/13/22 Malvin clifford Pulmonology 08/13/22 documented as of this encounter
--- OUTSIDE RECORDS SUMMARY | 2025-02-12 14:50 | XMS_ITS | Encounter Summary ---
Author Organization [facility] Address [address] [place] [address] Care Team Providers Care Packer Fuser Name Role Phone Darshana Leon MD Primary Care Provider Marj Arenas MD Primary Care Provider [phone] Krystal Dozier MD Primary Care Provider [phone] [facility], Pcp Primary Care Provider [facility] e Encounter Details Date Type Department Care Team Description 11/07/2016 [facility] Medical Records [address] [place] [address] Abstract, Provider Social History Tobacco Use Types [...] on filedocumented in this encounter Care Teams Packer Fuser Relationship Specialty Start Date End Date Darshana Leon MD PCP - General Internal Medicine 10/03/12 04/23/22 Marj Gonzales MD [address] [place] [address] PCP - General Internal Medicine 04/24/22 09/02/22 Krystal Dozier MD [address] [place] [address] PCP - General Internal Medicine 09/03/22 09/12/23 Community, Pcp [address] [place] [address] PCP - General Internal Medicine 09/13/23 Zhen PSYCHOLOGY 08/13/22 Malvin clifford Pulmonology 08/13/22 documented as of this encounter
--- OUTSIDE RECORDS SUMMARY | 2025-02-12 14:50 | XMS_ITS | Encounter Summary ---
Author Organization [facility] Address [address] [place] [address] Care Team Providers Care Senior Support Analyst Name Role Phone Darshana Leon MD Primary Care Provider Marj Arenas MD Primary Care Provider [phone] Krystal Dozier MD Primary Care Provider [facility], Pcp Primary Care Provider Unavailabl e Encounter Details Date Type Department Care Team Description 09/23/2013 Release of Information Medical Records [address] [place] [address] Abstract, Provider Social History Tobacco Use Types [...] filedocumented in this encounter Care Teams Senior Support Analyst Relationship Specialty Start Date End Date Darshana Leon MD PCP - General Internal Medicine 10/03/12 04/23/22 Marj Gonzales MD [address] [place] [address] PCP - General Internal Medicine 04/24/22 09/02/22 Krystal Dozier MD [address] [place] [address] PCP - General Internal Medicine 09/03/22 09/12/23 Community, Pcp [address] [place] [address] PCP - General Internal Medicine 09/13/23 Zhen PSYCHOLOGY 08/13/22 Malvin clifford Pulmonology 08/13/22 documented as of this encounter
--- OUTSIDE RECORDS SUMMARY | 2025-02-12 14:50 | XMS_ITS | Encounter Summary ---
Author Organization [facility] Address [address] [place] [address] Care Team Providers Care Block Paver Name Role Phone Darshana Leon MD Primary Care Provider Marj Arenas MD Primary Care Provider [phone] Krystal Dozier MD Primary Care Provider [facility], Pcp Primary Care Provider [facility] Encounter Details Date Type Department Care Team Description 08/19/2017 [facility] Medical Records [address] [place] [address] Abstract, Provider Social History Tobacco Use Types [...] on filedocumented in this encounter Care Teams Block Paver Relationship Specialty Start Date End Date Darshana Leon MD PCP - General Internal Medicine 10/03/12 04/23/22 Marj Gonzales MD [address] [place] [address] PCP - General Internal Medicine 04/24/22 09/02/22 Krystal Dozier MD [address] [place] [address] PCP - General Internal Medicine 09/03/22 09/12/23 Community, Pcp [address] [place] [address] PCP - General Internal Medicine 09/13/23 Zhen PSYCHOLOGY 08/13/22 Malvin clifford Pulmonology 08/13/22 documented as of this encounter
--- OUTSIDE RECORDS SUMMARY | 2025-02-12 14:50 | XMS_ITS | Encounter Summary ---
Author Organization [facility] Address [address] [place] [address] Care Team Providers Care Fly Winder Name Role Phone Darshana Leon MD Primary Care Provider Marj Arenas MD Primary Care Provider [phone] Krystal Dozier MD Primary Care Provider [phone] [facility], Pcp Primary Care Provider Unavailabl e Reason for Referral * EXTERNAL (Routine) - Closed Specialty Diagnoses / Procedures Referred By Contasael t Referred To Contact Physiatry Procedures REFERRAL TO PHYSIATRY Aileen Parker MD [address] [place] [address] [place] [address] [facility] [address] [place] [address] Referral ID Status Reason Start Date Expiration Date V isits Requested Visits Authorized SEE REVIEW ON 11/20/2016 Closed 11/14/2016 1 1 Reason for Visit * Reason Onset Date Comments Medical Records 11/08/2016 Encounter Details Date Type Department Care Team Description 11/08/2016 Telephone Physiatry - [place] [address] [place] [address] Aileen Parker MD [address] [place] [address] Dr LUIS M [place] [id number] Medical Records Social History Tobacco Use Types [...] a message to call Dept back at [phone] * Telephone Encounter - Aileen Parker MD [...] or back. I therefore recommend referral to [facility] for either spinal cord stimulator or radiofrequencyablation (both of which do not need steroid). Cc to PCP also. documented in this encounter Plan of Treatment Not on file documented as of this encounter Visit Diagnoses Not on filedocumented in this encounter Care Teams Fly Winder Relationship Specialty Start Date End Date Darshana Leon MD PCP - General Internal Medicine 10/03/12 04/23/22 Marj Gonzales MD [address] [place] [address] PCP - General Internal Medicine 04/24/22 09/02/22 Krystal Dozier MD [address] [place] [address] PCP - General Internal Medicine 09/03/22 09/12/23 [facility], [address] [address] PCP - General Internal Medicine 09/13/23 [facility] 08/13/22 Malvin clifford Pulmonology 08/13/22 documented as of this encounter
--- OUTSIDE RECORDS SUMMARY | 2025-02-12 14:50 | XMS_ITS | Encounter Summary ---
Author Organization [facility] Address [address] [place] [address] Care Team Providers Care Safety Grooving Machine Operator Name Role Phone Darshana Leon MD Primary Care Provider Marj Arenas MD Primary Care Provider [phone] Krystal Dozier MD [facility] Provider [facility], [facility]cp Primary Care Provider [facility] e Encounter Details Date Type Department Care Team Description 08/22/2020 Orders Only Medicine/Pediatrics - [address] [phone] Juan Hamilton MD Chronic pain syndrome; Spinal stenosis of cervical region Social History Tobacco Use Types Packs/Day Years [...] region documented in this encounter Care Teams Safety Grooving Machine Operator Relationship Specialty Start Date End Date Darshana Leon MD PCP - General Internal Medicine 10/03/12 04/23/22 Marj Gonzales MD [address] [place] [address] PCP - General Internal Medicine 04/24/22 09/02/22 Krystal Dozier MD [address] [place] [address] PCP - General Internal Medicine 09/03/22 09/12/23 [facility], Pcp [address] [place] [address] PCP - General Internal Medicine 09/13/23 [facility] 08/13/22 Malvin clifford Pulmonology 08/13/22 documented as of this encounter
--- OUTSIDE RECORDS SUMMARY | 2025-02-12 14:50 | XMS_ITS | Encounter Summary ---
Author Organization [facility] Address [address] [place] [address] Care Team Providers Care Yarn Comber Name Role Phone Darshana Leon MD Primary Care Provider Marj Arenas MD Primary Care Provider [phone] Krystal Dozier MD Primary Care Provider [facility], Pcp Primary Care Provider Unavailabl e Encounter Details Date Type Department Care Team Description 01/25/2016 Release of Information Medical Records [address] [place] [address] Abstract, Provider Social History Tobacco Use Types [...] on filedocumented in this encounter Care Teams Yarn Comber Relationship Specialty Start Date End Date Darshana Leon MD PCP - General Internal Medicine 10/03/12 04/23/22 Marj Gonzales MD [address] [place] [address] PCP - General Internal Medicine 04/24/22 09/02/22 Krystal Dozier MD [address] [place] [address] PCP - General Internal Medicine 09/03/22 09/12/23 [facility], Pcp [address] [place] [address] PCP - General Internal Medicine 09/13/23 [facility] 08/13/22 Malvin clifford Pulmonology 08/13/22 documented as of this encounter
--- OUTSIDE RECORDS SUMMARY | 2025-02-12 14:50 | XMS_ITS | Encounter Summary ---
Author Organization [facility] Address [address] [place] [address] Care Team Providers Care Tar Worker Name Role Phone Krystal Dozier MD Primary Care Provider [facility], Pcp Primary Care Provider Unavailabl e Reason for Visit * Reason Comments E-prescribe Rx Request Encounter Details Date Type Department Care Team Description 03/15/2023 Refill Adult Medicine [address] [address] Krystal Dozier MD [address] [place] [address] E-prescribe Rx Request Social History Tobacco Use [...] encounter Miscellaneous Notes * Telephone Encounter - Fern Alaniz M.A. - 03/15/2023 11:42 AM EDT rx faxed * Telephone Encounter - Fern Alaniz M.A. - 03/15/2023 10:16 AM EDT Lab Results Component Value Date TSH < 0.01 11/06/2022 Pending appt with pcp 05/08/23 Last appt with pcp 11/06/22 documented in this encounter Plan of Treatment Not on file documented as of this encounter Visit Diagnoses Not on filedocumented in this encounter Care Teams Tar Worker Relationship Specialty Start Date End Date Krystal Dozier MD [address] [place] [address] PCP - General Internal Medicine 09/03/22 09/12/23 [facility], [address] [address] PCP - General Internal Medicine 09/13/23 [facility] 08/13/22 Malvin clifford Pulmonology 08/13/22 documented as of this encounter
--- OUTSIDE RECORDS SUMMARY | 2025-02-12 14:50 | XMS_ITS | Encounter Summary ---
Author Organization [facility] Address [address] [place] [address] Care Team Providers Care Guard Immigration Name Role Phone Darshana Leon MD Primary Care Provider Marj Arenas MD Primary Care Provider [phone] Krystal Dozier MD Primary Care Provider [phone] On License Of [facility], Pcp Primary Care Provider Unavailabl e Reason for Visit * Reason Onset Date Comments APPOINTMENT 08/01/2016 physiatry Encounter Details Date Type Department Care Team Description 08/01/2016 Telephone Medicine/Pediatrics - [address] [phone] Darshana Leon MD APPOINTMENT (physiatry ) Social [...] separate message is being sent to the Plant Taxonomy Teacher Tawanna García in [place] as well regarding the appointment scheduled today documented in this encounter Plan of Treatment Not on file documented as of this encounter Visit Diagnoses Not on filedocumented in this encounter Care Teams Guard Immigration Relationship Specialty Start Date End Date Darshana Leon MD PCP - General Internal Medicine 10/03/12 04/23/22 Marj Gonzales MD [address] [place] [address] PCP - General Internal Medicine 04/24/22 09/02/22 Krystal Dozier MD [address] [place] [address] PCP - General Internal Medicine 09/03/22 09/12/23 Paulina Pandya [address] [place] [address] PCP - General Internal Medicine 09/13/23 [facility] 08/13/22 Malvin clifford Pulmonology 08/13/22 documented as of this encounter
--- OUTSIDE RECORDS SUMMARY | 2025-02-12 14:50 | XMS_ITS | Encounter Summary ---
Author Organization [facility] Address [address] [place] [address] Care Team Providers Care Knockout Worker Name Role Phone Darshana Leon MD Primary Care Provider Marj Arenas MD Primary Care Provider [phone] Krystal Dozier MD Primary Care Provider [phone] [facility], Pcp Primary Care Provider Unavailabl e Reason for Visit * Reason Onset Date Comments refill request 06/16/2021 Encounter Details Date Type Department Care Team Description 06/16/2021 Refill Medicine/Pediatrics - [address] [phone] Darshana Leon MD refill request Social History [...] region documented in this encounter Care Teams Knockout Worker Relationship Specialty Start Date End Date Darshana Leon MD PCP - General Internal Medicine 10/03/12 04/23/22 Marj Gonzales MD [address] [place] [address] PCP - General Internal Medicine 04/24/22 09/02/22 Krystal Dozier MD [address] [place] [address] PCP - General Internal Medicine 09/03/22 09/12/23 [facility], [address] [address] PCP - General Internal Medicine 09/13/23 [facility] 08/13/22 Malvin clifford Pulmonology 08/13/22 documented as of this encounter
--- OUTSIDE RECORDS SUMMARY | 2025-02-12 14:50 | XMS_ITS | Encounter Summary ---
Author Organization [facility] Address [address] [place] [address] Care Team Providers Care Tafe Registrar Name Role Phone Darshana Leon MD Primary Care Provider Marj Arenas MD Primary Care Provider [phone] Krystal Dozier MD Primary Care Provider [facility], Pcp Primary Care Provider [facility] e Encounter Details Date Type Department Care Team Description 11/19/2017 [facility] Medical Records [address] [place] [address] Abstract, Provider Social History Tobacco Use Types [...] on filedocumented in this encounter Care Teams Tafe Registrar Relationship Specialty Start Date End Date Darshana Leon MD PCP - General Internal Medicine 10/03/12 04/23/22 Marj Gonzales MD [address] [place] [address] PCP - General Internal Medicine 04/24/22 09/02/22 Krystal Dozier MD [address] [place] [address] PCP - General Internal Medicine 09/03/22 09/12/23 [facility], Pcp [address] [place] [address] PCP - General Internal Medicine 09/13/23 [facility] 08/13/22 Malvin clifford Pulmonology 08/13/22 documented as of this encounter
--- OUTSIDE RECORDS SUMMARY | 2025-02-12 14:50 | XMS_ITS | Encounter Summary ---
Author Organization [facility] [place] Address [address] [place] [address] Care Team Providers Care Acid Filler Name Role Phone Darshana Leon MD Primary Care Provider Marj Arenas MD Primary Care Provider [phone] Krystal Dozier MD Primary Care Provider [facility], Pcp Primary Care Provider Unavailabl e Encounter Details Date Type Department Care Team Description 07/07/2014 Release of Information Medical Records [address] [place] [address] Abstract, Provider Social History Tobacco Use Types [...] on filedocumented in this encounter Care Teams Acid Filler Relationship Specialty Start Date End Date Darshana Leon MD PCP - General Internal Medicine 10/03/12 04/23/22 Marj Gonzales MD [address] [place] [address] PCP - General Internal Medicine 04/24/22 09/02/22 Krystal Dozier MD [address] [place] [address] PCP - General Internal Medicine 09/03/22 09/12/23 [facility], Pcp [address] [place] [address] PCP - General Internal Medicine 09/13/23 [facility] 08/13/22 Malvin clifford Pulmonology 08/13/22 documented as of this encounter
--- OUTSIDE RECORDS SUMMARY | 2025-02-12 14:50 | XMS_ITS | Encounter Summary ---
Author Organization [facility] Address [address] [place] [address] Care Team Providers Care Peanut Blancher Name Role Phone Krystal Dozier MD Primary Care Provider [phone] [facility], Pcp Primary Care Provider Unavailabl e Reason for Visit * Reason Onset Date Comments medication problems 11/08/2022 Encounter Details Date Type Department Care Team Description 11/08/2022 Telephone [place] [facility] [address] [place] [address] Krystal Dozier MD [address] [place] [address] medication problems Social History Tobacco Use Types [...] suspected to have Coronavirus/COVID-19? No / Unsure 11/06/2022 12:56 PM EST documented as of this encounter Miscellaneous Notes * Telephone Encounter - Shyann Ford M.A. - 11/09/2022 10:27 AM EST Called pts insurance , the two rx's for 15 mg went through insurance. Called pts pharmacy and was told There is an rx for morphine (matt) 10 mg that is what is requiring the prior auth. Not currently in pts med list. Is pt supposed to be on this medication as well. ? Thank you Please reply back to [id number] Prior Auth Pool Shyann Muir [facility] Prior Authorization Ext [id number] * Telephone Encounter - Shyann Laraswathi - 11/08/2022 11:36 AM EST Prior Authorization for Medication-do not complete and send this encounter unless you have the fax from the pharmacy. Is this a Cover My Meds request: [place] of Medication morphine Dose of Medication 15mg What is the RX # from the faxed refill? N/a How does patient take this med? 1 daily What Pharmacy did the fax come from: [facility] fax #: [phone] Third Libertarian Information from fax: What Prescription Plan does the patient have? N/a BIN/PCN if applicable: n/a Cardholder ID:n/a Person Code: n/a Relationship Code: n/a Help desk phone: n/a documented in this encounter Plan of Treatment Not on file documented as of this encounter Visit Diagnoses Not on filedocumented in this encounter Care Teams Peanut Blancher Relationship Specialty Start Date End Date Krystal Dozier MD [address] [place] [address] PCP - General Internal Medicine 09/03/22 09/12/23 [facility], Pcp [address] [place] [address] PCP - General Internal Medicine 09/13/23 [facility] 08/13/22 Malvin clifford Pulmonology 08/13/22 documented as of this encounter
--- OUTSIDE RECORDS SUMMARY | 2025-02-12 14:50 | XMS_ITS | Encounter Summary ---
Author Organization [facility] Address [address] [place] [address] Care Team Providers Care Gas Appliance Installer Name Role Phone Darshana eLon MD Primary Care Provider Marj Arenas MD Primary Care Provider [phone] Krystal Dozier MD Primary Care Provider [phone] [facility], Pcp Primary Care Provider [facility] e Encounter Details Date Type Department Care Team Description 02/28/2018 Telephone Medicine/Pediatrics - [address] [phone] Darshana Leon MD Social History Tobacco Use [...] filedocumented in this encounter Care Teams Gas Appliance Installer Relationship Specialty Start Date End Date Darshana Leon MD PCP - General Internal Medicine 10/03/12 04/23/22 Marj Gonzales MD [address] [place] [address] PCP - General Internal Medicine 04/24/22 09/02/22 Krystal Dozier MD [address] [place], [place] [phone] PCP - General Internal Medicine 09/03/22 09/12/23 Paulina Pandya [address] [place] [address] PCP - General Internal Medicine 09/13/23 [facility] 08/13/22 Malvin clifford Pulmonology 08/13/22 documented as of this encounter
--- OUTSIDE RECORDS SUMMARY | 2025-02-12 14:50 | XMS_ITS | Encounter Summary ---
Author Organization [facility] Address [address] [place] [address] Care Team Providers Care Shrimping Boat Captain Name Role Phone Darshana Leon MD Primary Care Provider Marj Arenas MD Primary Care Provider [phone] Krystal Dozier MD Primary Care Provider [facility], Pcp Primary Care Provider [facility] e Encounter Details Date Type Department Care Team Description 12/17/2016 [facility] Medical Records [address] [place] [address] Abstract, Provider Social History Tobacco Use Types [...] on filedocumented in this encounter Care Teams Shrimping Boat Captain Relationship Specialty Start Date End Date Darshana Leon MD PCP - General Internal Medicine 10/03/12 04/23/22 Marj Gonzales MD [address] [place] [address] PCP - General Internal Medicine 04/24/22 09/02/22 Krystal Dozier MD [address] [place] [address] PCP - General Internal Medicine 09/03/22 09/12/23 [facility], Pcp [address] [place] [address] PCP - General Internal Medicine 09/13/23 [facility] 08/13/22 Malvin clifford Pulmonology 08/13/22 documented as of this encounter
--- OUTSIDE RECORDS SUMMARY | 2025-02-12 14:50 | XMS_ITS | Encounter Summary ---
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 [address] [place] [address] Mariana Valenzuela MD Social History Tobacco Use [...] on filedocumented in this encounter Care Teams Mental Health Social Worker Relationship Specialty Start Date End Date Darshana Leon MD PCP - General Internal Medicine 10/03/12 04/23/22 Marj Gonzales MD [address] [place] [address] PCP - General Internal Medicine 04/24/22 09/02/22 Krystal Dozier MD [address] [place] [address] PCP - General Internal Medicine 09/03/22 09/12/23 [facility], Pcp [address] [place] [address] PCP - General Internal Medicine 09/13/23 [facility] 08/13/22 Malvin clifford Pulmonology 08/13/22 documented as of this encounter
--- OUTSIDE RECORDS SUMMARY | 2025-02-12 14:51 | XMS_ITS | Encounter Summary ---
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 [address] [place] [address] Mariana Valenzuela MD Social History Tobacco Use [...] on filedocumented in this encounter Care Teams Physical Therapy Nurse Relationship Specialty Start Date End Date Darshana Leon MD PCP - General Internal Medicine 10/03/12 04/23/22 Marj Gonzales MD [address] [place] [address] PCP - General Internal Medicine 04/24/22 09/02/22 Krystal Dozier MD [address] [place] [address] PCP - General Internal Medicine 09/03/22 09/12/23 [facility], Pcp [address] [place] [address] PCP - General Internal Medicine 09/13/23 [facility] 08/13/22 Malvin clifford Pulmonology 08/13/22 documented as of this encounter
--- OUTSIDE RECORDS SUMMARY | 2025-02-12 14:51 | XMS_ITS | Encounter Summary ---
Author Organization [facility] Address [address] [place] [address] Care Team Providers Care Tin Dipper Name Role Phone Darshana Leon MD Primary Care Provider Marj Arenas MD Primary Care Provider [phone] Krystal Dozier MD [facility] Provider [facility], [facility]cp Primary Care Provider Unavailabl e Encounter Details Date Type Department Care Team Description 03/02/2020 [facility] Medical Records [address] [place] [address] Abstract, Provider Social History Tobacco Use Types [...] on filedocumented in this encounter Care Teams Tin Dipper Relationship Specialty Start Date End Date Darshana Leon MD PCP - General Internal Medicine 10/03/12 04/23/22 Marj Gonzales MD [address] [place] [address] PCP - General Internal Medicine 04/24/22 09/02/22 Krystal Dozier MD [address] [place] [address] PCP - General Internal Medicine 09/03/22 09/12/23 [facility], Pcp [address] [place] [address] PCP - General Internal Medicine 09/13/23 [facility] 08/13/22 Malvin clifford Pulmonology 08/13/22 documented as of this encounter
--- OUTSIDE RECORDS SUMMARY | 2025-02-12 14:51 | XMS_ITS | Encounter Summary ---
Author Organization [facility] Address [address] [place] [address] Care Team Providers Care Gerentological Physiotherapist Name Role Phone Darshana Leon MD Primary Care Provider Marj Arenas MD Primary Care Provider [phone] Krystal Dozier MD Primary Care Provider [facility], Pcp Primary Care Provider Unavailabl e Encounter Details Date Type Department Care Team Description 12/08/2019 Release of Information Medical Records [address] [place] [address] Abstract, Provider Social History Tobacco Use Types [...] on filedocumented in this encounter Care Teams Gerentological Physiotherapist Relationship Specialty Start Date End Date Darshana Leon MD PCP - General Internal Medicine 10/03/12 04/23/22 Marj Gonzales MD [address] [place] [address] PCP - General Internal Medicine 04/24/22 09/02/22 Krystal Dozier MD [address] [place] [address] PCP - General Internal Medicine 09/03/22 09/12/23 [facility], Pcp [address] [place] [address] PCP - General Internal Medicine 09/13/23 [facility]CH[facility] 08/13/22 Malvin clifford Pulmonology 08/13/22 documented as of this encounter
--- OUTSIDE RECORDS SUMMARY | 2025-02-12 14:51 | XMS_ITS | Encounter Summary ---
Author Organization [facility] Address [address] [place] [address] Care Team Providers Care Tube Cutter Name Role Phone Marj Gonzales MD Primary Care Provider Krystal Dozier MD [facility] Provider [facility], [facility]cp Primary Care Provider Unavailabl e Encounter Details Date Type Department Care Team Description 08/29/2022 Telephone Adult Medicine - [place] [address] [place] [address] Marj Gonzales MD [address] [place] [address] Social History Tobacco Use Types Packs/Day Years [...] Recorded In the last 10 days, have sarah u been in contact with someone who was confirmed or suspected to have Coronavirus/COVID-19? No / Unsure 08/13/2022 9:55 AM EDT documented as of this encounter Plan of Treatment Not on file documented as of this encounter Visit Diagnoses Not on filedocumented in this encounter Care Teams Tube Cutter Relationship Specialty Start Date End Date Marj Gonzales MD [address] [place] [address] PCP - General Internal Medicine 04/24/22 09/02/22 Krystal Dozier MD [address] [place] [address] PCP - General Internal Medicine 09/03/22 09/12/23 [facility], Pcp [address] [place] [address] PCP - General Internal Medicine 09/13/23 [facility] 08/13/22 Malvin clifford Pulmonology 08/13/22 documented as of this encounter
--- OUTSIDE RECORDS SUMMARY | 2025-02-12 14:51 | XMS_ITS | Encounter Summary ---
Author Organization [facility] Address [address] [place] [address] Care Team Providers Care Help Desk Specialist Name Role Phone Darshana Leon MD Primary Care Provider Marj Arenas MD Primary Care Provider [phone] Krystal Dozier MD Primary Care Provider [facility], Pcp Primary Care Provider [facility] e Encounter Details Date Type Department Care Team Description 02/11/2013 Controlled Substance Contract with Plan Medical Records [address] [place] [address] Abstract, Provider Social History Tobacco Use Types [...] on filedocumented in this encounter Care Teams Help Desk Specialist Relationship Specialty Start Date End Date Darshana Leon MD PCP - General Internal Medicine 10/03/12 04/23/22 Marj Gonzales MD [address] [place] [address] PCP - General Internal Medicine 04/24/22 09/02/22 Krystal Dozier MD [address] [place] [address] PCP - General Internal Medicine 09/03/22 09/12/23 [facility], Pcp [address] [place] [address] PCP - General Internal Medicine 09/13/23 [facility] PSYCH[facility] 08/13/22 Malvin clifford Pulmonology 08/13/22 documented as of this encounter
--- OUTSIDE RECORDS SUMMARY | 2025-02-12 14:51 | XMS_ITS | Encounter Summary ---
Author Organization [facility] Address [address] [place] [address] Care Team Providers Care Distribution Operation Supervisor Name Role Phone Darshana Leon MD Primary Care Provider Marj Arenas MD Primary Care Provider [phone] Krystal Dozier MD Primary Care Provider [facility], Pcp Primary Care Provider Unavailabl e Encounter Details Date Type Department Care Team Description 10/07/2012 Release of Information Medical Records [address] [place] [address] Abstract, Provider Social History Tobacco Use Types [...] on filedocumented in this encounter Care Teams Distribution Operation Supervisor Relationship Specialty Start Date End Date Darshana Leon MD PCP - General Internal Medicine 10/03/12 04/23/22 Marj Gonzales MD [address] [place] [address] PCP - General Internal Medicine 04/24/22 09/02/22 Krystal Dozier MD [address] [place] [address] PCP - General Internal Medicine 09/03/22 09/12/23 [facility], Pcp [address] [place] [address] PCP - General Internal Medicine 09/13/23 [facility] PSYCH[facility] 08/13/22 Malvin clifford Pulmonology 08/13/22 documented as of this encounter
--- OUTSIDE RECORDS SUMMARY | 2025-02-12 14:51 | XMS_ITS | Encounter Summary ---
Author Organization [facility] Address [address] [place] [address] Care Team Providers Care Pcmh Specialist Name Role Phone Marj Gonzales MD Primary Care Provider [phone] Krystal Dozier MD Primary Care Provider [facility], Pcp Primary Care Provider Unavailabl e Encounter Details Date Type Department Care Team Description 07/13/2022 Orders Only Adult Medicine - [place] [address] [place] [address] Christopher Sherman PA-C [address] [place] [address] Social History Tobacco Use Types Packs/Day Years [...] on filedocumented in this encounter Care Teams Pcmh Specialist Relationship Specialty Start Date End Date Marj Gonzales MD [address] [place] [address] PCP - General Internal Medicine 04/24/22 09/02/22 Krystal Dozier MD [address] [place] [address] PCP - General Internal Medicine 09/03/22 09/12/23 [facility], Pcp [address] [place] [address] PCP - General Internal Medicine 09/13/23 [facility] PSYCH[facility] 08/13/22 Malvin clifford Pulmonology 08/13/22 documented as of this encounter
--- OUTSIDE RECORDS SUMMARY | 2025-02-12 14:51 | XMS_ITS | Encounter Summary ---
Author Organization [facility] Address [address] [place] [address] Care Team Providers Care Cannoneer Name Role Phone Darshana Leon MD Primary Care Provider Marj Arenas MD Primary Care Provider [phone] Krystal Dozier MD Primary Care Provider [phone] [facility], Pcp Primary Care Provider Unavailabl e Encounter Details Date Type Department Care Team Description 12/31/2012 Medical Assistant Per Diem Report Medical Records [address] [place] [id number] Mariana Valenzuela MD Social History Tobacco Use [...] on filedocumented in this encounter Care Teams Cannoneer Relationship Specialty Start Date End Date Darshana Leon MD PCP - General Internal Medicine 10/03/12 04/23/22 Marj Gonzales MD [address] [place] [address] PCP - General Internal Medicine 04/24/22 09/02/22 Krystal Dozier MD [address] [place] [address] PCP - General Internal Medicine 09/03/22 09/12/23 [facility], Pcp [address] [place] [address] PCP - General Internal Medicine 09/13/23 [facility] 08/13/22 Malvin clifford Pulmonology 08/13/22 documented as of this encounter
--- OUTSIDE RECORDS SUMMARY | 2025-02-12 14:51 | XMS_ITS | Encounter Summary ---
Author Organization [facility] Address [address] [place] [address] Care Team Providers Care Lead Setter Name Role Phone Darshana Leon MD Primary Care Provider Marj Arenas MD Primary Care Provider [phone] Krystal Dozier MD Primary Care Provider [facility], Pcp [facility] Encounter Details Date Type Department Care Team Description 08/25/2019 [facility] Medical Records [address] [place] [id number] Abstract, Provider Social History Tobacco Use Types [...] on filedocumented in this encounter Care Teams Lead Setter Relationship Specialty Start Date End Date Darshana Leon MD PCP - General Internal Medicine 10/03/12 04/23/22 Marj Gonzales MD [address] [place] [address] PCP - General Internal Medicine 04/24/22 09/02/22 Krystal Dozier MD [address] [place] [address] PCP - General Internal Medicine 09/03/22 09/12/23 [facility], Pcp [address] [place] [address] PCP - General Internal Medicine 09/13/23 [facility] 08/13/22 Malvin clifford Pulmonology 08/13/22 documented as of this encounter
--- OUTSIDE RECORDS SUMMARY | 2025-02-12 14:51 | XMS_ITS | Encounter Summary ---
Author Organization [facility] Address [address] [place] [address] Care Team Providers Care Social Contact Worker Name Role Phone Darshana Leon MD Primary Care Provider Marj Arenas MD Primary Care Provider [phone] Krystal Dozier MD Primary Care Provider [phone] [facility], Pcp Primary Care Provider [facility] Encounter Details Date Type Department Care Team Description 09/28/2019 [facility] Medical Records [address] [place] [id number] Abstract, Provider Social History Tobacco Use Types [...] on filedocumented in this encounter Care Teams Social Contact Worker Relationship Specialty Start Date End Date Darshana Leon MD PCP - General Internal Medicine 10/03/12 04/23/22 Marj Gonzales MD [address] [place] [address] PCP - General Internal Medicine 04/24/22 09/02/22 Krystal Dozier MD [address] [place] [address] PCP - General Internal Medicine 09/03/22 09/12/23 [facility], Pcp [address] [place] [address] PCP - General Internal Medicine 09/13/23 [facility] 08/13/22 Malvin clifford Pulmonology 08/13/22 documented as of this encounter
--- OUTSIDE RECORDS SUMMARY | 2025-02-12 14:51 | XMS_ITS | Encounter Summary ---
Author Organization [facility] Address [address] [place] [address] Care Team Providers Care Director Search Name Role Phone Krystal Dozier MD Primary Care Provider [phone] [facility], Pcp Primary Care Provider Unavailabl e Reason for Visit * Reason Onset Date Comments Shipwright Apprentice Feedback 09/12/2022 Pain management Encounter Details Date Type Department Care Team Description 09/12/2022 Telephone Internal Medicine - [address], [address] [place] [address] Krystal Dozier MD [address] [place] [address] Shipwright Apprentice Feedback (Pain management) Social History Tobacco Use Types Packs/Day Years [...] In the last 10 days, have sarah yonas been in contact with someone who was confirmed or suspected to have Coronavirus/COVID-19? No / Unsure 08/13/2022 9:55 AM EDT documented as of this encounter Miscellaneous Notes * Telephone Encounter - Lila Baer - 09/12/2022 1:59 PM EST Patient called back and informed patient dr dozier sent the referral for pain management. * Telephone Encounter - Lila Baer - 09/12/2022 1:12 PM EST Left a message for patient to return call regarding the referral to pain management. * Telephone Encounter - Cassandra Harris - 09/12/2022 12:37 PM EST Good Afternoon ! Patient called requesting a referral to be seen at a Pain Management Office for Chronic pain syndrome,Spinal stenosis of cervical region Please review this patients new referral request. The referral has been pended. Please complete thefollowing: If approved> sign order If denied>please give instructions and route to your practice nursing pool. Practice nurse should inform referrals and the patient if denied. Thank you, Cassandra Referral Auricular Acupuncturist documented in this encounter Plan of Treatment Not on file documented as of this encounter Visit Diagnoses Not on filedocumented in this encounter Care Teams Director Search Relationship Specialty Start Date End Date Krystal Dozier MD [address] [place] [address] PCP - General Internal Medicine 09/03/22 09/12/23 [facility], Pcp [address] [place] [address] PCP - General Internal Medicine 09/13/23 [facility] 08/13/22 Malvin clifford Pulmonology 08/13/22 documented as of this encounter
--- OUTSIDE RECORDS SUMMARY | 2025-02-12 14:51 | XMS_ITS | Encounter Summary ---
Author Organization [facility] Address [address] [place] [address] Care Team Providers Care Life Support Technician Name Role Phone Krystal Dozier MD Primary Care Provider [phone] [facility], Pcp Primary Care Provider Unavailabl e Reason for Visit * Reason Onset Date Comments REFERRAL 09/11/2022 Encounter Details Date Type Department Care Team Description 09/11/2022 Telephone Adult Medicine [facility] [place] [place] [address] [place] [address] Krystal Dozier MD [address] [place] [id number] REFERRAL Social History Tobacco Use Types Packs/Day [...] insurance does the patient have today? Payor: [facility] [employer] [facility] FFS / Plan: [facility] / Product Type: MEDICAID RISK Effective [...] insurance must be obtained and registered in [facility] or their referral can not be [...] Is this visit:Initial Visit Address of Specialist: [address] [place] [address] Phone # of Specialist:[phone] Fax #: (if applicable):[phone] Does patient have an appointment scheduled?: NO Date of appointment- (including a retro-request): Is this appointment related to: Not MVA, WC or Surgery related documented in this encounter Plan of Treatment Not on file documented as of this encounter Visit Diagnoses Not on filedocumented in this encounter Care Teams Life Support Technician Relationship Specialty Start Date End Date Krystal Dozier MD [address] [place] [address] PCP - General Internal Medicine 09/03/22 09/12/23 [facility], [address] [address] PCP - General Internal Medicine 09/13/23 [facility] 08/13/22 Malvin clifford Pulmonology 08/13/22 documented as of this encounter
== END 2025-02-12 15:20 | disposition home or self-care (01) ==
LOC: HO.PMC 14:34
PROVIDERS: PCP Internal Medicine; Visit Provider Registered Nurse Emergency
DX: M47.816 Spondylosis without myelopathy or radiculopathy, lumbar region (principal); M47.22 Other spondylosis with radiculopathy, cervical region; M50.30 Other cervical disc degeneration, unspecified cervical region
CPT/HCPCS: 99213; G2211

== ENCOUNTER → 2025-02-12 14:33 | Outpatient (BNVA) | payer OTHER, SELFPAY | PROVIDERS: PCP Internal Medicine; Visit Provider Registered Nurse Emergency | DX: M47.816 Spondylosis without myelopathy or radiculopathy, lumbar region (principal); M47.22 Other spondylosis with radiculopathy, cervical region; M50.30 Other cervical disc degeneration, unspecified cervical region | CPT/HCPCS: 99212 ==

== ENCOUNTER 2025-03-30 06:37 | Outpatient (REF) | payer OTHER, SELFPAY | END 2025-03-30 06:38 | disposition home or self-care (01) | LOC: CF 06:37 | PROVIDERS: Visit Provider Anesthesiology | DX: Z13.89 Encounter for screening for other disorder (principal) ==

== ENCOUNTER 2025-04-05 15:50 | Outpatient (AMB) | payer OTHER, SELFPAY ==
--- NOTE | 2025-03-22 19:30 | MHC.PC.OV ---
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 Reasons: discuss medication change Allergies iron Allergy (Severe, Verified 02/12/25 14:48) difficutly breathing prednisolone Allergy (Severe, Verified 02/12/25 14:48) difficulty breathing iodine Allergy (Mild, Verified 02/12/25 14:48) Hives meperidine [Demerol] Allergy (Mild, Verified 02/12/25 14:48) Difficulty Breathing Cortisone Allergy (Severe, Uncoded 02/08/25 11:18) Hives prednisolone-propyl Allergy (Unknown, Uncoded 02/08/25 11:18) difficutly breathing Tobacco use date assessed: 02/08/25 Dental Screening Dental Screen Date: 10/12/24 [facility] Surgical History H/O tooth extraction Social History Housing: House Alcohol intake: never Patient Tobacco Use Status: Never used Tobacco e-Cigarette/Vaping Use: Never Used Second Hand Smoke Exposure: No service: No Current occupational status: disabled Cognitive needs: No Hearing needs: No Vision needs: No Questionnaire Thrive Questionnaire Date Thrive assessed: 11/09/24 VERONIQUE-7 AMB Questionnaire VERONIQUE-7 Date VERONIQUE - 7 assessed: 11/09/24 Source: Developed by Drs. Atilio Owens, Shirley García, Jean Carlos Luz and colleagues, with an educational denise from [employer]. Physical exam (Primary Care) Tobacco/Smoking Status: Tobacco use Status Tobacco use date assessed 02/08/25 03/02/25 08:28 Patient Tobacco Use Status Never used Tobacco 03/02/25 08:28 e-Cigarette/Vaping Use Never Used 03/02/25 08:28 Thrive Assessment: Date of Thrive Assessment Date Thrive assessed 11/09/24 03/02/25 08:28 Coding
--- NOTE | 2025-04-05 15:42 | MHC.PC.OV ---
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 Reasons: discuss medication change Intake Note: Discuss pain medication Research Manager Required: No Allergies iron Allergy (Severe, Verified 04/05/25 15:42) difficutly breathing prednisolone Allergy (Severe, Verified 04/05/25 15:42) difficulty breathing iodine Allergy (Mild, Verified 04/05/25 15:42) Hives meperidine [Demerol] Allergy (Mild, Verified 04/05/25 15:42) Difficulty Breathing Cortisone Allergy (Severe, Uncoded 04/05/25 15:42) Hives prednisolone-propyl Allergy (Unknown, Uncoded 04/05/25 15:42) difficutly breathing Tobacco use date assessed: 04/05/25 Dental Screening Dental Screen Date: 10/12/24 HPI HPI Comments History of Present Illness Details The patient is a 54 year old female with a past medical history of chronic back pain, neck pain, insomnia, asthma presenting for medication review Chronic pain: Transitioned from morphine to oxycodone ER. Less frequent but persistent enough nausea with the change. MRI neck with cervical DDD-08/2023 diffuse disc desiccation, ostophytes, disc space narrowing. At C5-C6 ventral subarachnoid space effaced without cord compression. Has been seen previously at [facility]. Does not tolerate steroid injections (allergy). The patient has pain which originates in the posterior spine and radiates to the shoulder and up to the bilateral occiput and temporal areas. She has numbness/neuritis. Failed gabapentin and lyrica -due to intolerable side effects. Wanted to see neurology for consideration of botox injections but werent accepting. Recently started seeing Pain Management at [facility]. She has not done well with steroid injections in the past. Updated lumbar MRI Neuropsych: Depression, insomnia. On mirtazapine, hydroxyzine, buspar, seroquel. Resp: Asthma. Allergy. Follows with Dr Chester. On albuterol prn, alternates breo/advair. On singulair, loratidine. Prone to sinus infection Cologuard epired. 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 How often do you have a drink containing alcohol?: Never 3. How often do you have six or more drinks on one occasion?: Never Total Score: 0 VERONIQUE-7 AMB Questionnaire VERONIQUE-7 Date VERONIQUE - 7 assessed: 11/09/24 Source: Developed by Drs. Atilio Owens, Shirley García, Jean Carlos Luz and colleagues, with an educational denise from [employer]. Physical exam (Primary Care) Tobacco/Smoking Status: Tobacco use Status Tobacco use date assessed 04/05/25 04/05/25 15:47 Patient Tobacco Use Status Never used Tobacco 04/05/25 15:47 e-Cigarette/Vaping Use Never Used 04/05/25 15:47 Thrive Assessment: Date of Thrive Assessment Date Thrive assessed 11/09/24 04/05/25 15:47 Telehealth Telehealth Telehealth Platform: [facility] Location of provider rendering services: practice address Location of patient: address on file Patient Identification confirmed using: Name, : Yes Telehealth method: voice only Patient verbally consented to treatment: Yes Patient verbally consented to billing insurance company: Yes Patient informed of any privacy concerns related to visit: Yes Minutes spent on Phone/Video with Pt.: 25 Coding Level of Care Code Tele Est Pt Level 3 (58887) Diagnoses Lumbar spondylosis M47.816 Osteoarthritis of spine with radiculopathy, 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 Spinal osteoarthritis complication: with radiculopathy Hypothyroidism, unspecified type E03.9 Hypothyroidism type: unspecified Assessment & Plan Assessment & Plan (1) Lumbar spondylosis: Code(s): M47.816 - Spondylosis without myelopathy or radiculopathy, lumbar region Category: Medical (2) Cervical spine degeneration: Code(s): M47.812 - Spondylosis without myelopathy or radiculopathy, cervical region Category: Medical Qualifiers: Spinal osteoarthritis complication: with radiculopathy Qualified Code(s): M47.22 - Other spondylosis with radiculopathy, cervical region (3) Hypothyroid: Comment: due for TSH. Code(s): E03.9 - Hypothyroidism, unspecified Category: Medical Qualifiers: Hypothyroidism type: unspecified Qualified Code(s): E03.9 - Hypothyroidism, unspecified Plan She feels like overall she has had less issues with shorter acting medications Will stop oxycodone ER. Oxycodone IR at same daily dosing ordered Labs ordered Needs colon cancer screening Orders: Orders Pathologist Review - CBC 04/05/25 D64.9 - Anemia, unspecified, R53.83 - Other fatigue Complete Blood Count Auto Diff 04/05/25 D64.9 - Anemia, unspecified, R53.83 - Other fatigue Lyme IgG/IgM w/reflex to WB 04/05/25 D64.9 - Anemia, unspecified, R53.83 - Other fatigue UA and rflx microscopic 04/05/25 R31.9 - Hematuria, unspecified, R53.83 - Other fatigue Vitamin B12 and Folate 04/05/25 D64.9 - Anemia, unspecified, R53.83 - Other fatigue Urine Culture 04/05/25 D64.9 - Anemia, unspecified, R53.83 - Other fatigue Referrals Cologuard Test Z12.11 - Encounter for screening for malignant neoplasm of colon, Z12.12 - Encounter for screening for malignant neoplasm of rectum Medications: New oxycodone Partial Fill upon patient request. May pay out of pocket if not covered by insurance She is discontinuing oxycodone ER 10 mg PO Q6H 28 days PRN 112 tabs 0RF pain M47.816 - Spondylosis without myelopathy or radiculopathy, lumbar region
== END 2025-04-05 16:11 | disposition home or self-care (01) ==
LOC: HO.HMCFM 15:50
PROVIDERS: PCP Internal Medicine; Visit Provider Internal Medicine
DX: M47.816 Spondylosis without myelopathy or radiculopathy, lumbar region (principal); M47.22 Other spondylosis with radiculopathy, cervical region; E03.9 Hypothyroidism, unspecified

== ENCOUNTER → 2025-04-05 15:50 | Outpatient (BNVA) | payer OTHER, SELFPAY | PROVIDERS: PCP Internal Medicine; Visit Provider Internal Medicine ==

== ENCOUNTER 2025-04-13 06:05 | Outpatient (REF) | payer OTHER, SELFPAY | END 2025-04-13 06:06 | disposition home or self-care (01) | LOC: CF 06:05 | PROVIDERS: Visit Provider Anesthesiology | DX: Z13.89 Encounter for screening for other disorder (principal) ==

== ENCOUNTER 2025-05-17 10:29 | Outpatient (AMB) | payer OTHER, SELFPAY ==
--- NOTE | 2025-05-17 10:24 | MHC.PC.OV ---
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 Reasons: Medication review Supplier Specialist Required: No Allergies iron Allergy (Severe, Verified 05/17/25 10:24) difficutly breathing prednisolone Allergy (Severe, Verified 05/17/25 10:24) difficulty breathing iodine Allergy (Mild, Verified 05/17/25 10:24) Hives meperidine (Demerol) Allergy (Mild, Verified 05/17/25 10:24) Difficulty Breathing Cortisone Allergy (Severe, Uncoded 05/17/25 10:24) Hives prednisolone-propyl Allergy (Unknown, Uncoded 05/17/25 10:24) difficutly breathing Tobacco use date assessed: 04/05/25 Dental Screening Dental Screen Date: 10/12/24 HPI HPI Comments History of Present Illness Details The patient is a 55 year old female with a past medical history of chronic back pain, neck pain, insomnia, asthma presenting for medication review Chronic pain: Transitioned from morphine to oxycodone ER, to oxycodone IR at 10mg. Her rx has lasted 6 weeks. This has greatly improved pain levels. Less frequent but persistent enough nausea with the change. MRI neck with cervical DDD-08/2023 diffuse disc desiccation, ostophytes, disc space narrowing. At C5-C6 ventral subarachnoid space effaced without cord compression. Has been seen previously at [facility]. Does not tolerate steroid injections (allergy). The patient has pain which originates in the posterior spine and radiates to the shoulder and up to the bilateral occiput and temporal areas. She has numbness/neuritis. Failed gabapentin and lyrica -due to intolerable side effects. Wanted to see neurology for consideration of botox injections but werent accepting. Recently started seeing Pain Management at [place]. She has not done well with steroid injections in the past. Updated lumbar MRI Neuropsych: Depression, insomnia. On mirtazapine, hydroxyzine, buspar, seroquel. Resp: Asthma. Allergy. Follows with Dr Chester. On albuterol prn, alternates breo/advair. On singulair, loratidine. 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 Mammo 04/10/2024 ROS see HPI PHYSICAL EXAM: [facility] Surgical History H/O tooth extraction Social History Housing: House Alcohol intake: never Patient Tobacco Use Status: Never used Tobacco e-Cigarette/Vaping Use: Never Used Second Hand Smoke Exposure: No Use of substances other than those prescribed or required for medical reasons: No service: No Current occupational status: disabled Cognitive needs: No Hearing needs: No Vision needs: No Questionnaire Thrive Questionnaire Date Thrive assessed: 11/09/24 I am a: Patient What is your living situation today?: I have a steady place to live Within the past 12 months, did the food you bought not last and you didn't have the money to get more?: Sometimes True Within the past 12 months, did you worry whether your food would run out before you got money to buy more?: I choose not to answer this question Do you have trouble paying for medicines?: I choose not to answer this question Do you have trouble getting transportation to medical appointments?: I choose not to answer this question Do you have trouble paying your heating and electricity bill?: I choose not to answer this question Do you have trouble taking care of your child, family member or friend?: I choose not to answer this question Do you have trouble with day-to-day activities such as bathing, preparing meals, shopping, managing finances, etc.?: I choose not to answer this question Are you currently unemployed and looking for a job?: I choose not to answer this question Are you interested in more education?: I choose not to answer this question Please select the resources that you would like help with: None Currently or been in a relationship where the following occur: I choose not to answer THRIVE Score: 1 AUDIT C Alcohol Use Questionnaire (AUDIT-C) 2. How many drinks containing alcohol do you have on a typical day when you are drinking?: 1 or 2 3. How often do you have six or more drinks on one occasion?: Never Total Score: 0 VERONIQUE-7 AMB Questionnaire VERONIQUE-7 Date VERONIQUE - 7 assessed: 11/09/24 Source: Developed by Drs. Atilio Owens, Shirley García, Jean Carlos Luz and colleagues, with an educational denise from [employer]. Physical exam (Primary Care) Tobacco/Smoking Status: Tobacco use Status Tobacco use date assessed 04/05/25 05/17/25 10:27 Patient Tobacco Use Status Never used Tobacco 05/17/25 10:27 e-Cigarette/Vaping Use Never Used 05/17/25 10:27 Thrive Assessment: Date of Thrive Assessment Date Thrive assessed 11/09/24 05/17/25 10:27 Currently or been in a relationship where the following occur: I choose not to answer Telehealth Telehealth Telehealth Platform: [employer] Location of provider rendering services: practice address Location of patient: address on file Patient Identification confirmed using: Name, : Yes Telehealth method: voice only Patient verbally consented to treatment: Yes Patient verbally consented to billing insurance company: Yes Patient informed of any privacy concerns related to visit: Yes Minutes spent on Phone/Video with Pt.: 25 Coding Level of Care Code Tele Est Pt Level 3 (01639) Diagnoses Lumbar back pain with radiculopathy affecting lower extremity M54.16 Cervicogenic headache G44.86 Assessment & Plan Assessment & Plan (1) Lumbar back pain with radiculopathy affecting lower extremity: Code(s): M54.16 - Radiculopathy, lumbar region Category: Medical (2) Cervicogenic headache: Code(s): G44.86 - Cervicogenic headache Category: Medical Plan Chronic pain is improved on current medication regimen She has a CSA in place Medications: Changed From oxycodone Partial Fill upon patient request. May pay out of pocket if not covered by insurance She is discontinuing oxycodone ER 10 mg PO Q6H 28 days PRN 112 tabs 0RF pain M47.816 - Spondylosis without myelopathy or radiculopathy, lumbar region To oxycodone Partial Fill upon patient request. May pay out of pocket if not covered by insurance 10 mg PO Q6H PRN 112 tabs 0RF pain 28 days M47.816 - Spondylosis without myelopathy or radiculopathy, lumbar region
== END 2025-05-17 12:57 | disposition home or self-care (01) ==
LOC: HO.HMCFM 10:29
PROVIDERS: PCP Internal Medicine; Visit Provider Internal Medicine
DX: M54.16 Radiculopathy, lumbar region (principal); G44.86 Cervicogenic headache

== ENCOUNTER 2025-08-10 11:59 | Outpatient (AMB) | payer OTHER, SELFPAY ==
--- NOTE | 2025-08-10 11:59 | A.OFFPC_ITS ---
Vital Signs 08/10/25 12:00 BMI Reason not done Patient refused/unable BP 102/68 Blood Pressure Location Lt brachial Position Sitting Respiration 14 Pulse 64 Pulse Source Pulse Oximeter Temp 98.5 F Temp Source Oral Pulse Oximetry (%) 98 Oxygen Delivery Method Room Air 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 Reasons: cpe Intake Note: Physical Statement Request Clerk Required: No Accompanied by: Child Allergies iron Allergy (Severe, Verified 05/17/25 10:24) difficutly breathing prednisolone Allergy (Severe, Verified 05/17/25 10:24) difficulty breathing iodine Allergy (Mild, Verified 05/17/25 10:24) Hives meperidine (Demerol) Allergy (Mild, Verified 05/17/25 10:24) Difficulty Breathing Cortisone Allergy (Severe, Uncoded 05/17/25 10:24) Hives prednisolone-propyl Allergy (Unknown, Uncoded 05/17/25 10:24) difficutly breathing Tobacco use date assessed: 04/05/25 Dental Screening Dental Screen Date: 08/10/25 Did you have a dental visit in the last 12 months?: Yes Did you have a dental problem in the last 6 months where you did not have access to dental care?: No Was dental information given to patient?: Patient has dentist HPI HPI Comments History of Present Illness Details The patient is a 55 year old female with a past medical history of chronic back pain, neck pain, insomnia, asthma presenting for physical exam Chronic pain: On oxycodone ER, to oxycodone IR at 10mg. Previously on morphine. Her rx has lasted 6 weeks. This has greatly improved pain levels. Less frequent but persistent nausea with the change. MRI neck with cervical DDD-08/2023 diffuse disc desiccation, ostophytes, disc space narrowing. At C5-C6 ventral subarachnoid space effaced without cord compression. Has been seen previously at [facility]. Does not tolerate steroid injections (allergy). The patient has pain which originates in the posterior spine and radiates to the shoulder and up to the bilateral occiput and temporal areas. She has numbness/neuritis. Failed gabapentin and lyrica -due to intolerable side effects. Seen at [facility] [place]. Neuropsych: Depression, insomnia. On hydroxyzine, seroquel. Hypothyroid-On levothyroxine Resp: Asthma. Allergy. Follows with Dr Chester. On albuterol prn, alternates qvar/advair. On singulair, loratidine. Prone to sinus infection Cologuard -reordered last visit. 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 HEENT: Denies changes in vision and hearing. RESPIRATORY: Denies SOB and cough. CV: Denies palpitations and CP GI: Denies abdominal pain, nausea, vomiting and diarrhea. : Denies dysuria and urinary frequency. MSK: Denies new myalgia and joint pain. SKIN: Denies rash and pruritus. NEUROLOGICAL: Denies headache PSYCHIATRIC: Denies recent changes in mood. PHYSICAL EXAM: GENERAL: Alert and oriented x 3. NAD EYES: EOMI. Anicteric. HENT: Moist mucous membranes. No scleral icterus. No cervical lymphadenopathy. LUNGS: Clear to auscultation bilaterally. CARDIOVASCULAR: Regular rate and rhythm. No murmur. No JVD. ABDOMEN: Soft, non-tender +bs EXTREMITIES: No edema. Non-tender. SKIN: No rashes or lesions. Warm. NEUROLOGIC: Antalgic gait. No focal neurological deficits. CN II-XII grossly intact PSYCHIATRIC: Cooperative. Appropriate mood and affect [facility] Surgical History H/O tooth extraction Social History Housing: House Alcohol intake: never Patient Tobacco Use Status: Never used Tobacco e-Cigarette/Vaping Use: Never Used Second Hand Smoke Exposure: No service: No Current occupational status: disabled Cognitive needs: No Hearing needs: No Vision needs: No Questionnaire Thrive Questionnaire Date Thrive assessed: 11/09/24 AUDIT C Alcohol Use Questionnaire (AUDIT-C) 1. How often do you have a drink containing alcohol?: Never 3. How often do you have six or more drinks on one occasion?: Never Total Score: 0 VERONIQUE-7 AMB Questionnaire VERONIQUE-7 Date VERONIQUE - 7 assessed: 11/09/24 Source: Developed by Drs. Atilio Owens, Shirley García, Jean Carlos Luz and colleagues, with an educational denise from [employer]. Physical exam (Primary Care) Vital Signs: Last Vital Signs Temp 98.5 F 08/10/25 12:00 Pulse 64 08/10/25 12:00 Resp 14 08/10/25 12:00 BP 102/68 08/10/25 12:00 Pulse Ox 98 08/10/25 12:00 Oxygen Delivery Method Room Air 08/10/25 12:00 Tobacco/Smoking Status: Tobacco use Status Tobacco use date assessed 04/05/25 08/10/25 12:03 Patient Tobacco Use Status Never used Tobacco 08/10/25 12:03 e-Cigarette/Vaping Use Never Used 08/10/25 12:03 Thrive Assessment: Date of Thrive Assessment Date Thrive assessed 11/09/24 08/10/25 12:03 Coding Level of Care Code Est Pt Prev Care 40-64y(62863) Diagnoses Physical exam Z00.00 Osteoarthritis of spine with radiculopathy, 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 Spinal osteoarthritis complication: with radiculopathy Lumbar spondylosis M47.816 Hypothyroidism, unspecified type E03.9 Hypothyroidism type: unspecified Moderate persistent asthma without complication J45.40 Asthma complication type: uncomplicated Asthma persistence: persistent Asthma severity: moderate Assessment & Plan Assessment & Plan (1) Physical exam: Code(s): Z00.00 - Encounter for general adult medical examination without abnormal findings Category: Medical (2) Cervical spine degeneration: Code(s): M47.812 - Spondylosis without myelopathy or radiculopathy, cervical region Category: Medical Qualifiers: Spinal osteoarthritis complication: with radiculopathy Qualified Code(s): M47.22 - Other spondylosis with radiculopathy, cervical region (3) Lumbar spondylosis: Code(s): M47.816 - Spondylosis without myelopathy or radiculopathy, lumbar region Category: Medical (4) Hypothyroid: Comment: due for TSH. Code(s): E03.9 - Hypothyroidism, unspecified Category: Medical Qualifiers: Hypothyroidism type: unspecified Qualified Code(s): E03.9 - Hypothyroidism, unspecified (5) Asthma: Comment: well controlled on current regimen. Sinusitis-azithromycin x 5 days. start nasal spray intermittently. continue follow up with Allergy Code(s): J45.909 - Unspecified asthma, uncomplicated Category: Medical Qualifiers: Asthma complication type: uncomplicated Asthma persistence: persistent Asthma severity: moderate Qualified Code(s): J45.40 - Moderate persistent asthm a, uncomplicated Plan 55 year old for CPE Interval history reviewed Preventive measures for age discussed Discussed importance of completing cologuard. Mammo ordered Update labs Refer head inspector and center marker Chronic back pain is stable Orders: Orders Comprehensive Met. Panel 08/10/25 E03.9 - Hypothyroidism, unspecified, M47.816 - Spondylosis without myelopathy or radiculopathy, lumbar region, R35.89 - Other polyuria, R53.83 - Other fatigue, Z13.220 - Encounter for screening for lipoid disorders Hemoglobin A1c 08/10/25 E03.9 - Hypothyroidism, unspecified, M47.816 - Spondylosis without myelopathy or radiculopathy, lumbar region, R35.89 - Other polyuria, R53.83 - Other fatigue, Z13.220 - Encounter for screening for lipoid disorders MM tomosynthesis screening BI 08/10/25 Z12.31 - Encounter for screening mamm ogram for malignant neoplasm of breast Complete Blood Count Auto Diff 08/10/25 E03.9 - Hypothyroidism, unspecified, M47.816 - Spondylosis without myelopathy or radiculopathy, lumbar region, R35.89 - Other polyuria, R53.83 - Other fatigue, Z13.220 - Encounter for screening for lipoid disorders Lipid Panel 08/10/25 E03.9 - Hypothyroidism, unspecified, M47.816 - Spondylosis without myelopathy or radiculopathy, lumbar region, R35.89 - Other polyuria, R53.83 - Other fatigue, Z13.220 - Encounter for screening for lipoid disorders TSH reflex Free T4 08/10/25 E03.9 - Hypothyroidism, unspecified, M47.816 - Spondylosis without myelopathy or radiculopathy, lumbar region, R35.89 - Other polyuria, R53.83 - Other fatigue, Z13.220 - Encounter for screening for lipoid disorders Referrals ROLL OUT MANAGER Referral Z01.419 - Encounter for gynecological examination (general) (routine) without abnormal findings Medications: New Ultra-Light Rollator (walker) continuous prn 1 ea 0RF NS M47.816 - Spondylosis without myelopathy or radiculopathy, lumbar region, M54.16 - Radiculopathy, lumbar region cholecalciferol (vitamin D3) 50 mcg PO DAILY 90 caps 3RF sumatriptan succinate (Imitrex) take 1 tab at onset of headache; if no relief may repeat 1 tab after at least 2 hrs; max = 4 tabs/24 hr PO 30 tabs 2RF Changed From albuterol sulfate inhalation Q4H PRN To albuterol sulfate 2.5 mg (3 mL) inhalation Q4H PRN 90 mL 3RF shortness of breath or wheezing
[2025-08-10 12:00] VITALS: BP 102/68; PULSE 64; RESP 14; TEMP 36.9; O2SAT 98
--- OUTSIDE RECORDS SUMMARY | 2025-08-10 15:03 | XMS_ITS | Clinical Summary ---
Author Organization [facility] Address [address] [place] [id number] Phone Care Team Providers Care Photography Editor Name Role Phone Zuleyka Stoddard MD Primary Care Provider [phone] Social History Tobacco Use Types Packs/Day Years Used Date Smoking Tobacco: Never Assessed Education Answer Date Recorded Are you interested in more education? Not on jus e 11/25/2024 Are you concerned about learning? Not on file 11/25/2024 No 11/25/2024 No 11/25/2024 Digital Access Answer Date Recorded No 11/25/2024 No 11/25/2024 Reliable internet access at home? Not on file 11/25/2024 Device with a working camera? Not on file Comments Unknown Sex and Gender Information Value Date Recorded Sex Assigned at Female 06/16/2024 2:56 PM EDT Legal Sex Female 2:34 PM EDT Gender Identity Female 06/16/2024 2:56 PM EDT Sexual Orientation Straight 06/16/2024 2: 56 PM EDT Plan of Treatment Health Maintenance Due Date Last Done Comments Adult Td,Tdap Booster 1969 LIPID PANEL 1969 DEPRESSION SCREENING 1981 SMOKING Hx and SMOKELESS TOB ACCO SCREENING 1982 HEPATITIS C SCREENING 1987 HIV ONE-TIME SCREENING (18-6 5 YEARS) 1987 PAP SMEAR 1990 MAMMOGRAM 2009 COLOGUARD 2014 COLONOSCOPY 2014 COLORECTAL CANCER SCREENING 2014 FIT TEST 2014 FOBT 2014 SIGMOIDOSCOPY 2014 VIRTUAL COLONOSCOPY 2014 PNEUMOCOCCAL VACCINES (50+ y ears) (1 of 1 - PCV) 2019 ZOSTER VACCINES (1 of 2) 2019 INFLUENZA VACCINE (#1) 2025 COVID-19 VACCINE (1 - 2024-2 6 season) 2025 RSV VACCINE (1 - 1-dose 75+ series) 2044 HEPATITIS A VACCINES Aged Out No long er eligible based on patient's age to complete this topic HIB VACCINES Aged Out No longer eligi ble based on patient's age to complete this topic MENINGOCOCCAL VACCINES (ACWY) Aged Out No longer eligible based on patient's age to complete this topic MENINGOCOCCAL VACCINES (B) Aged Out N o longer eligible based on patient's age to complete this topic Medical Devices Not on file Insurance [address] [place] [address] [address] [address] [address] [place] [address] [place] [address] ACO Care Teams Photography Editor Relationship Specialty Start Date End Date Zuleyka Stoddard MD PCP - General Internal Medicine 06/16/24 Additional Source Comments The information contained in this document represents components of the legal health record. It is not the complete legal health record.[facility]
--- OUTSIDE RECORDS SUMMARY | 2025-08-10 15:03 | XMS_ITS ---
Author Name [facility] Organization Unknown Care Team Organization Name Specialty Phone Email Start Date End Da te [facility] KRYSTLE FLORES Primary Care [email or web address] 03/11/[address] [facility] Marj Gonzales MD Primary Care 01/09/[address] [facility] Christopher Maxwell Primary Care 09/11/2022 4
== END 2025-08-10 14:10 | disposition home or self-care (01) ==
LOC: HO.HMCFM 11:59
PROVIDERS: PCP Internal Medicine; Visit Provider Internal Medicine
DX: Z00.00 Encounter for general adult medical examination without abnormal findings (principal); M47.22 Other spondylosis with radiculopathy, cervical region; M47.816 Spondylosis without myelopathy or radiculopathy, lumbar region; E03.9 Hypothyroidism, unspecified; J45.40 Moderate persistent asthma, uncomplicated

== ENCOUNTER → 2025-08-10 11:59 | Outpatient (BNVA) | payer OTHER, SELFPAY | PROVIDERS: PCP Internal Medicine; Visit Provider Internal Medicine | DX: Z00.00 Encounter for general adult medical examination without abnormal findings (principal); M47.22 Other spondylosis with radiculopathy, cervical region; M47.816 Spondylosis without myelopathy or radiculopathy, lumbar region; E03.9 Hypothyroidism, unspecified; J45.40 Moderate persistent asthma, uncomplicated; Z79.891 Long term (current) use of opiate analgesic; Z79.899 Other long term (current) drug therapy | CPT/HCPCS: 99396 ==

== ENCOUNTER 2025-08-27 13:34 | Outpatient (AMB) | payer OTHER, SELFPAY ==
[2025-08-27 13:44] VITALS: BP 122/58; PULSE 73; RESP 16; O2SAT 98; BMI 31.1
--- NOTE | 2025-08-27 13:44 | A.OFFVIS_ITS ---
Vital Signs 08/27/25 13:44 Height 4 ft 10 in Weight 149 lb BMI 31.1 BP 122/58 L Blood Pressure Location Lt brachial Position Sitting Respiration 16 Pulse 73 Pulse Source Pulse Oximeter Pulse Oximetry (%) 98 Oxygen Delivery Method Room Air 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 Reasons: PROCEDURE DISCUSSION Service Assistant Required: No Service Assistant Services: Service Assistant Offered & Declined Accompanied by: Self / Same As Patient Allergies iron Allergy (Severe, Verified 05/17/25 10:24) difficutly breathing prednisolone Allergy (Severe, Verified 05/17/25 10:24) difficulty breathing iodine Allergy (Mild, Verified 05/17/25 10:24) Hives meperidine (Demerol) Allergy (Mild, Verified 05/17/25 10:24) Difficulty Breathing Cortisone Allergy (Severe, Uncoded 05/17/25 10:24) Hives prednisolone-propyl Allergy (Unknown, Uncoded 05/17/25 10:24) difficutly breathing HPI Comments Details: The patient is a 55-year-old female presenting with cervicalgia. The neck pain extends into the shoulders and head, causing headaches. Physical therapy was attempted but exacerbated the pain, leading to discontinuation. Various interventions such as ice, heat, and [id number]-irb-[id number] analgesics like Tylenol and ibuprofen have been tried with limited success. She was previously scheduled for diagnostic cervical MBBs that were cancelled d/t home life emergency and were never rescheduled. She is ready to proceed with the diagnostic injections. - Onset: Persistent neck pain extending into shoulders and head, causing headaches. - Quality: Exacerbated by physical therapy, relieved slightly by ice, heat, and analgesics. - Location: Neck, shoulders, head. - Radiation: Into shoulders and head. - Interference: Affects sleep and daily activities. - Affect: Pain impacts sleep and daily functioning. - Analgesia: Current use of Tylenol and ibuprofen with limited relief. - Adverse Effects: None reported from current analgesics. - Activities of Daily Living: Pain affects ability to sleep and perform daily tasks. - Aberrant Drug Related Behaviors: None reported. [facility] Surgical History H/O tooth extraction Social History Housing: House Alcohol intake: never Patient Tobacco Use Status: Never used Tobacco e-Cigarette/Vaping Use: Never Used Second Hand Smoke Exposure: No service: No Current occupational status: disabled Cognitive needs: No Hearing needs: No Vision needs: No Review of Systems Narrative - Musculoskeletal: Reports neck pain radiating to shoulders and head. - Neurological: Reports headaches associated with neck pain. - Psychiatric: Reports anxiety and panic attacks, particularly when driving. 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 Physical Exam Exam Exam: General: awake, alert, oriented. Answers questions appropriately. Fully engaged in examination. Skin: warm, dry, intact HEENT: Normocephalic. Hearing intact. Cardiac: External chest normal in appearance. Respiratory: No cough, audible wheezing or stridor. Abdomen: without gross distension. MS: No obvious swelling or deformities. Able to transition from sit to stand unassisted. Cervical Spine: Tender to palpation midline cervical vertebrae and cervical paraspinal muscles decreased cervical ROM Neurological: Oriented to person, place, time and situation. Thought process intact. No gait abnormalities appreciated. Psychiatric: Appropriate mood and affect. Good judgment and insight. Vital Signs: Last Vital Signs Pulse 73 08/27/25 13:44 Resp 16 08/27/25 13:44 BP 122/58 L 08/27/25 13:44 Pulse Ox 98 08/27/25 13:44 Oxygen Delivery Method Room Air 08/27/25 13:44 BMI result Body Mass Index 31.1 Results Reviewed Results Reviewed: 01/07/25 XR/XR cervical spine w flex/ext TECHNIQUE: 6 views of the cervical spine, inclusive of flexion and extension views, were obtained. FINDINGS: There is mild straightening of lumbar lordosis. The vertebral heights and alignment is normal. Loss of C5-6, C6 -C7 disc heights with ventral and posterior spondylosis noted. Moderate left C4-5 facet joint arthropathy and hypertrophy is noted. The prevertebral soft tissues are normal. IMPRESSION: Mild degenerative disc changes C6-7 and C5-6 disc levels. No visible acute fracture or dislocation seen Assessment & Plan Assessment & Plan (1) Lumbar spondylosis: Code(s): M47.816 - Spondylosis without myelopathy or radiculopathy, lumbar region Category: Medical (2) Cervical spine degeneration: Code(s): M47.812 - Spondylosis without myelopathy or radiculopathy, cervical region Category: Medical Qualifiers: Spinal osteoarthritis complication: with radiculopathy Qualified Code(s): M47.22 - Other spondylosis with radiculopathy, cervical region (3) Degenerative cervical disc: Comment: continue ER morphine. neurology referral. cannot tolerate injections. Code(s): M50.30 - Other cervical disc degeneration, unspecified cervical region Category: Medical Plan The plan includes rescheduling diagnostic injections to assess the source of cervicalgia, as previous steroid injections were problematic due to adverse reactions. The initial injections will be diagnostic, using numbing medication to determine if targeting the joints provides relief. If effective, further treatment options will be considered such as Sprint PNS VS RFA. The patient will be prescribed Ativan to manage anxiety prior to the procedure, with instructions to take it 30 minutes before the appointment. Transportation arrangements with her daughter have been made to ensure safety post-procedure. Will schedule for fluoroscopy guided diagnostic bilateral C4-C5 C6 medial branch blocks with local anesthetic. Ativan to be sent to the pharmacy to take 30 minutes prior to procedure. Patient was informed and verbally consented to the use of an ambient scribe for clinic note documentation during this visit. Patient was informed and verbally consented to the use of an ambient scribe for clinic note documentation during this visit. Patient Instructions: - Reschedule injections as discussed. - Take Ativan 30 minutes before the procedure as prescribed. - Arrange for transportation with your daughter for the day of the procedure. Coding Level of Care Code Est Pt Level 3 (22249) Complex EM visit Add On G2211 Diagnoses Lumbar spondylosis M47.816 Osteoarthritis of spine with radiculopathy, 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 Spinal osteoarthritis complication: with radiculopathy Degenerative cervical disc M50.30
--- OUTSIDE RECORDS SUMMARY | 2025-08-27 15:34 | XMS_ITS | Clinical Summary ---
Author Organization [facility] Address [address] [place] [id number] Phone Care Team Providers Care Meter Reader Inspector Name Role Phone Zuleyka Stoddard MD Primary Care Provider Social History Tobacco Use Types Packs/Day [...] Devices Not on [place] [address] [place] [address] [place] [address] [place] [address] [place] [address] [place] [address] [place] [address] [place] [address] [place] [address] [place] [address] [place] [address] [place] [address] Care Teams Meter Reader Inspector Relationship Specialty Start Date End Date Zuleyka Stoddard MD PCP - General Internal Medicine 06/16/24 Additional Source Comments The information contained in this document represents components of the legal health record. It is not the complete legal health record.[facility]
== END 2025-08-27 14:07 | disposition home or self-care (01) ==
LOC: HO.PMC 13:35
PROVIDERS: PCP Internal Medicine; Visit Provider Registered Nurse Emergency
DX: M47.816 Spondylosis without myelopathy or radiculopathy, lumbar region (principal); M47.22 Other spondylosis with radiculopathy, cervical region; M50.30 Other cervical disc degeneration, unspecified cervical region
CPT/HCPCS: 99213

== ENCOUNTER → 2025-08-27 13:34 | Outpatient (BNVA) | payer OTHER, SELFPAY | PROVIDERS: PCP Internal Medicine; Visit Provider Registered Nurse Emergency | DX: M47.816 Spondylosis without myelopathy or radiculopathy, lumbar region (principal); M47.22 Other spondylosis with radiculopathy, cervical region; M50.30 Other cervical disc degeneration, unspecified cervical region | CPT/HCPCS: 99212 ==